=== PATIENT | male | born 1965 | race Caucasian/White ===

== ENCOUNTER 2021-01-16 10:19 | Inpatient (IN) | payer MEDICAID, SELFPAY ==
--- NOTE | ~2021-01-16 | CT_ITS ---
EXAMINATION: CT ABDOMEN AND PELVIS WITH CONTRAST CLINICAL INFORMATION: Abdominal pain and weight loss COMPARISON: Ultrasound of September 09, 2011 TECHNIQUE: Multidetector volumetric images were obtained from the superior aspect of the liver through the pubic symphysis following administration 85 mL of Omnipaque 350 intravenous contrast. Sagittal and coronal reformatted images were obtained on the technologist's workstation. Oral contrast: No This CT examination was performed using dose optimization techniques as appropriate, variously including the following: *Automated exposure control *Adjustment of mA and/or kV according to patient size (this includes techniques or standardized protocols for targeted exams where dose is matched to indication/reason for exam; i.e. extremities or head) *Use of iterative reconstruction technique DLP: 911 mGy-cm FINDINGS: LUNG BASES: The visualized lung bases are unremarkable. No pleural or pericardial effusion. LIVER, GALLBLADDER, AND BILIARY TREE: The liver is normal in size, shape, and attenuation. No focal hepatic lesion or biliary ductal dilatation is present. Cholelithiasis is present without evidence of acute cholecystitis. PANCREAS: Unremarkable. SPLEEN: Unremarkable. ADRENAL GLANDS: Unremarkable. KIDNEYS AND URETERS: The kidneys are normal in size, shape, and attenuation. No hydronephrosis, hydroureter, or calculi seen. No perinephric stranding. BLADDER: Decompressed GASTROINTESTINAL TRACT: No dilated loops of large or small bowel are evident. There is mild left: Diverticulosis. There is bowel wall thickening with large amount of pericolonic inflammatory change manager a long segment of sigmoid colon with small amount of fluid within the cul-de-sac without air within it. There is an intraloop heterogeneous region/collection which may represent phlegmon about the left side of the sigmoid colon measuring approximately 4.7 x 2.9 x 2.4 cm in size which does not have nondependent gas within it and therefore is not fluid. ABDOMINAL WALL: No significant hernia is appreciated. LYMPH NODES: There is left upper pelvic lymphadenopathy present. VASCULAR: There is a small 2.6 cm infrarenal abdominal aortic aneurysm. This does not extend into the bifurcation. No visceral artery occlusion is appreciated. PELVIC VISCERA: As described above in GI section. OSSEOUS STRUCTURES: No suspicious destructive bony lesion identified. There is partial sacralization of L5 on the right. There is a grade 1 spondylolisthesis L3 on L4. CT/CT abdomen pelvis w con IMPRESSION: Sigmoid colitis with small amount of free fluid within the cul-de-sac and what appears to be a phlegmon adjacent to the left sigmoid colon. No definite visceral vessel obstruction to suggest occlusive mesenteric ischemia. Cholelithiasis without evidence of acute cholecystitis.
[2021-01-16 11:35] LABS: MANUAL DIFF FLAG NO
[2021-01-16 11:37] LABS: Basophils Percent Auto 0.4 % (0-2); Eosinophils Absolute Auto 0.1 X10*3/uL (0.0-0.4); Eosinophils Percent Auto 1.4 % (0-4); Hematocrit 39.4 % (42-52); Hemoglobin 13.1 g/dl (14.0-18.0); Imm Gran Abs Auto 0.05 X10*3/uL (0.00-0.03); Imm Gran Pct Auto 0.6 % (0.0-0.4); Lymphocytes Absolute Auto 1.7 X10*3/uL (1.2-4.9); Lymphocytes Percent Auto 21.7 % (20-40); Mean Corpuscular HGB Conc 33.2 g/dl (31.0-36.0); Mean Corpuscular Hemoglobin 28.7 pg (27.0-33.0); Mean Corpuscular Volume 86.4 fL (80-98); Mean Platelet Volume 8.6 fL (9.4-12.4); Monocytes Absolute Auto 0.9 X10*3/uL (0.1-1.2); Monocytes Percent Auto 11.5 % (2-11); Neutrophils Percent Auto 64.4 % (45-73); Platelet Count 294 X10*3/uL (160-400); Red Blood Count 4.56 X10*6/uL (4.60-5.80); Red Cell Distribution Width 13.6 % (11.0-16.0); White Blood Count 7.8 X10*3/uL (4.8-10.8)
[2021-01-16 11:42] VITALS: BP 114/72; PULSE 56; RESP 17; TEMP 36.8; O2SAT 97; BMI 36.5
[2021-01-16 12:25] LABS: Alanine Aminotransferase 28 U/L (0-40); Albumin Level 3.9 g/dL (3.5-5.0); Alkaline Phosphatase 89 U/L (39-117); Anion Gap 15 (12-20); Aspartate Amino Transferase 20 U/L (5-37); Bilirubin Total 1.4 mg/dL (0.0-1.0); Blood Urea Nitrogen 20 mg/dL (9-16); Calcium 9.9 mg/dL (8.4-10.2); Carbon Dioxide 30 mmol/L (22-29); Chloride 97 mmol/L (96-108); Creatinine Clr Calc Pharmacy 72.1; Estimated Glomerular Filt Rate 53; Glucose Random 98 mg/dL (60-115); Potassium 3.1 mmol/L (3.3-5.1); Sodium 139 mmol/L (135-145); Total Protein 7.4 g/dL (6.5-8.0)
--- NOTE | 2021-01-16 13:09 | ED.ABDPAIN ---
HPI - Abdominal Pain General Chief Complaint: Abdominal Pain Stated Complaint: abd pain Time Seen by Provider: 01/16/21 13:09 Related Data Allergies Allergy/AdvReac Type Severity Reaction Status Date / Time No Known Allergies Allergy Unknown UN Verified 01/16/21 11:41 Review of Systems Review of Systems Constitutional : No Weight loss, No Fever, No Chills, No Night Sweats, No Fatigue, No Malaise ENT/Mouth : No Hearing loss, No Ear Pain, No Nasal Congestion, No Sinus Pain, No Hoarseness, No sore throat, No Rhinorrhea, No Swallowing Difficulty Eyes: No Eye Pain, No Swelling, No Redness, No Foreign Body, No Discharge, No Vision Changes Cardiovascular : No Chest Pain, No SOB, No Dyspnea on Exertion, No Orthopnea, No Edema, No Palpitations Respiratory : No Cough, No Sputum, No Wheezing, No Smoke Exposure, No Dyspnea Gastrointestinal : Nausea, Vomiting, No Diarrhea, No Constipation, No abdominal Pain, No Hematochezia, No Melena Genitourinary : no irregular bleeding, No Dysuria, No Urinary Frequency, No Hematuria, No Urinary Incontinence, No Urgency, No Flank Pain, No Urinary Flow Changes, No Hesitancy Musculoskeletal : No joint pain, No Myalgias, No Joint Swelling Skin : No Skin Lesions, No rash Neuro : Weakness, No Numbness, No Paresthesias, No Loss of Consciousness, No Dizziness, No Headache Psych : No Anxiety/Panic, No Depression, No SI/HI/AH/VH, No Social Issues, Heme/Lymph: No Bruising, No Bleeding,No Lymphadenopathy Endocrine : No Polyuria, No Polydipsia, No Temperature Intolerance Yes all other systems are reviewed and are negative Physical Exam Vital Signs: Vital Signs: Last Vital Signs Temp 98.3 F 01/16/21 11:42 Pulse 60 01/16/21 16:08 Resp 17 01/16/21 11:42 BP 120/80 01/16/21 16:08 Pulse Ox 97 01/16/21 16:08 Body Mass Index 36.5 Const: General: healthy appearing, no acute distress and well developed Nutritional Appearance: well nourished Orientation/consciousness: patient oriented x3 Neck: Neck: Yes normal visual inspection, Yes full ROM and Yes trachea midline Thyroid: Thyroid normal Resp: Auscultation: clear to auscultation bilaterally Cardio: Rate: regular rate Rhythm: regular rhythm GI: Inspection: Yes normal to inspection and No distended Palpation (GI): No hepatosplenomegaly present Auscultation: normal bowel sounds : General: Yes bladder normal to palpation Skin: General skin exam: elasticity normal, turgor normal and dry skin Neuro: General: patient oriented x3 Course Course Course Narrative: 55-year-old male is here today for complaining of abdominal discomfort. Patient reports his abdominal pain is diffuse. Patient reports that he lost 50 lb in the last month. He also reports that he has postprandial fullness, bloating, belching. He reports that he moves his bowels however he only goes small amounts pebble like stools. Denies melena, hematochezia, or ribbon like stools. Denies epigastric pain, CP, nausea, vomiting. Will give him Mag citrate and replace the potassium. CT scan with IV contrast, will add lipase. Differential is colitis, diverticulitis, malignancy. Patient reports that he also feels very tired. Reevaluation(s) Reevaluation #1: Potassium repeat after IV infusion 2.8. Will replace with p.o. potassium as well as IV. Awaiting for CT scan of abdomen. Patient is moving his bowels better. Patient reports that his pain is better at this moment. Reevaluation #2: CT scan shows colitis, There is an intraloop heterogeneous region/collection which may represent phlegmon about the left side of the sigmoid colon measuring approximately 4.7 x 2.9 x 2.4 cm in size which does not have nondependent gas within it and therefore is not fluid. Call surgery spoke with Dr. Rowell, no abscess will admit to hospitalist services. Will treat patient with Flagyl and Levaquin. Will repeat potassium. Patient is agreeable to plan of care for admission. Reevaluation #3: Spoke with hospitalist, patient will be admitted MDM - Abdominal Pain Lab Data Result diagrams: 01/16/21 11:22 01/16/21 19:17 Labs: Lab Results 01/16/21 01/16/21 01/16/21 Range/Units 11:22 11:22 13:23 WBC 7.8 (4.8-10.8) X10*3/uL RBC 4.56 L (4.60-5.80) X10*6/uL Hgb 13.1 L (14.0-18.0) g/dl Hct 39.4 L (42-52) % MCV 86.4 (80-98) fL MCH 28.7 (27.0-33.0) pg MCHC 33.2 (31.0-36.0) g/dl RDW 13.6 (11.0-16.0) % Plt Count 294 (160-400) X10*3/uL MPV 8.6 L (9.4-12.4) fL Immature Gran % (Auto) 0.6 H (0.0-0.4) % Neut % (Auto) 64.4 (45-73) % Lymph % (Auto) 21.7 (20-40) % [place] % (Auto) 11.5 H (2-11) % Eos % (Auto) 1.4 (0-4) % Baso % (Auto) 0.4 (0-2) % Lymph # (Auto) 1.7 (1.2-4.9) X10*3/uL [place] # (Auto) 0.9 (0.1-1.2) X10*3/uL Eos # (Auto) 0.1 (0.0-0.4) X10*3/uL Baso # (Auto) 0.0 (0.0-0.2) X10*3/uL Abs Immat Gran (auto) 0.05 H (0.00-0.03) X10*3/uL Absolute Neuts (auto) 5.0 (2.0-8.3) X10*3/uL Absolute Nucleated RBC 0.000 (0.0-0.012) X10*3/uL Nucleated RBC % (auto) 0.0 (0.0-0.2) /100WBC Sodium 139 (135-145) mmol/L Potassium 3.1 L (3.3-5.1) mmol/L Chloride 97 (96-108) mmol/L Carbon Dioxide 30 H (22-29) mmol/L Anion Gap 15 (12-20) BUN 20 H (9-16) mg/dL Creatinine 1.40 (0.5-1.4) mg/dL Estim Creat Clear Calc 72.1 Estimated GFR 53 Random Glucose 98 (60-115) mg/dL Calcium 9.9 (8.4-10.2) mg/dL Magnesium 1.9 (1.6-2.6) mg/dL Total Bilirubin 1.4 H (0.0-1.0) mg/dL AST 20 (5-37) U/L ALT 28 (0-40) U/L Alkaline Phosphatase 89 (39-117) U/L Total Protein 7.4 (6.5-8.0) g/dL Albumin 3.9 (3.5-5.0) g/dL Lipase 8 (8-78) U/L Urine Color YELLOW Urine Appearance CLOUDY Urine pH 6.0 (5.0-8.0) Ur Specific [place] >= 1.030 H (1.005-1.025) Urine Protein 2+ H (NEG-TRACE) MG/DL Urine Glucose (UA) NEG (NEG) MG/DL Urine Ketones NEG (NEG) MG/DL Urine Blood 1+ H (NEG) Urine Nitrite NEG (NEG) Ur Leukocyte Esterase NEG (NEG) Urine RBC 1-4 (0) /HPF Urine WBC 5-9 H (0-4) /HPF Ur Squamous Epith Cells NONE /LPF Urine Bacteria NONE /LPF Urine Mucus TRACE /LPF 01/16/21 Range/Units 14:24 WBC (4.8-10.8) X10*3/uL RBC (4.60-5.80) X10*6/uL Hgb (14.0-18.0) g/dl Hct (42-52) % MCV (80-98) fL MCH (27.0-33.0) pg MCHC (31.0-36.0) g/dl RDW (11.0-16.0) % Plt Count (160-400) X10*3/uL MPV (9.4-12.4) fL Immature Gran % (Auto) (0.0-0.4) % Neut % (Auto) (45-73) % Lymph % (Auto) (20-40) % [place] % (Auto) (2-11) % Eos % (Auto) (0-4) % Baso % (Auto) (0-2) % Lymph # (Auto) (1.2-4.9) X10*3/uL [place] # (Auto) (0.1-1.2) X10*3/uL Eos # (Auto) (0.0-0.4) X10*3/uL Baso # (Auto) (0.0-0.2) X10*3/uL Abs Immat Gran (auto) (0.00-0.03) X10*3/uL Absolute Neuts (auto) (2.0-8.3) X10*3/uL Absolute Nucleated RBC (0.0-0.012) X10*3/uL Nucleated RBC % (auto) (0.0-0.2) /100WBC Sodium (135-145) mmol/L Potassium 2.8 L (3.3-5.1) mmol/L Chloride (96-108) mmol/L Carbon Dioxide (22-29) mmol/L Anion Gap (12-20) BUN (9-16) mg/dL Creatinine (0.5-1.4) mg/dL Estim Creat Clear Calc Estimated GFR Random Glucose (60-115) mg/dL Calcium (8.4-10.2) mg/dL Magnesium (1.6-2.6) mg/dL Total Bilirubin (0.0-1.0) mg/dL AST (5-37) U/L ALT (0-40) U/L Alkaline Phosphatase (39-117) U/L Total Protein (6.5-8.0) g/dL Albumin (3.5-5.0) g/dL Lipase (8-78) U/L Urine Color Urine Appearance Urine pH (5.0-8.0) Ur Specific [place] (1.005-1.025) Urine Protein (NEG-TRACE) MG/DL Urine Glucose (UA) (NEG) MG/DL Urine Ketones (NEG) MG/DL Urine Blood (NEG) Urine Nitrite (NEG) Ur Leukocyte Esterase (NEG) Urine RBC (0) /HPF Urine WBC (0-4) /HPF Ur Squamous Epith Cells /LPF Urine Bacteria /LPF Urine Mucus /LPF Imaging Data CT scan - abdomen: Radiologist's impression: FINDINGS: LUNG BASES: The visualized lung bases are unremarkable. No pleural or pericardial effusion. LIVER, GALLBLADDER, AND BILIARY TREE: The liver is normal in size, shape, and attenuation. No focal hepatic lesion or biliary ductal dilatation is present. Cholelithiasis is present without evidence of acute cholecystitis. PANCREAS: Unremarkable. SPLEEN: Unremarkable. ADRENAL GLANDS: Unremarkable. KIDNEYS AND URETERS: The kidneys are normal in size, shape, and attenuation. No hydronephrosis, hydroureter, or calculi seen. No perinephric stranding. BLADDER: Decompressed GASTROINTESTINAL TRACT: No dilated loops of large or small bowel are evident. There is mild left: Diverticulosis. There is bowel wall thickening with large amount of pericolonic inflammatory foreign exchange services manager a long segment of sigmoid colon with small amount of fluid within the cul-de-sac without air within it. There is an intraloop heterogeneous region/collection which may represent phlegmon about the left side of the sigmoid colon measuring approximately 4.7 x 2.9 x 2.4 cm in size which does not have nondependent gas within it and therefore is not fluid. ABDOMINAL WALL: No significant hernia is appreciated. LYMPH NODES: There is left upper pelvic lymphadenopathy present. VASCULAR: There is a small 2.6 cm infrarenal abdominal aortic aneurysm. This does not extend into the bifurcation. No visceral artery occlusion is appreciated. PELVIC VISCERA: As described above in GI section. OSSEOUS STRUCTURES: No suspicious destructive bony lesion identified. There is partial sacralization of L5 on the right. There is a grade 1 spondylolisthesis L3 on L4. Discharge Plan Discharge Clinical Impression: Colitis, Hypokalemia Constipation Qualifiers: Constipation type: chronic idiopathic constipation Qualified Code(s): K59.04 - Chronic idiopathic constipation Patient Disposition: Admitted As Inpatient [facility] Past Medical History Medical History (Updated 01/16/21 @ 19:28 by GULHSAN Sumner) Depression Hypertension Social History Social History (Updated 01/16/21 @ 18:42 by Moose Somers MD) Alcohol intake: never Patient Tobacco Use Status: Current everyday Tobacco user Use of substances other than those prescribed or required for medical reasons: No Advance Directives: No Advance Directives Information Provided: Yes Current occupation: Works in [employer] department at [employer]
[2021-01-16 13:41] LABS: Glucose Urine UA NEG (NEG); Leukocyte Esterase Urine NEG (NEG); Nitrite Urine NEG (NEG); Specific Gravity - Urine >= 1.030 (1.005-1.025); Urine Blood 1+ (NEG); Urine Ketones NEG (NEG); Urine Protein 2+ MG/DL (NEG-TRACE)
[2021-01-16 13:43] LABS: Appearance Urine CLOUDY; Color Urine YELLOW
[2021-01-16 13:52] LABS: UACC CULT YES
[2021-01-16 13:53] LABS: Mucus Urine TRACE /LPF
[2021-01-16 14:06] LABS: Lipase 8 U/L (8-78)
[2021-01-16] MEDS: iohexoL 350 MG/ML 100 ML INFUS..BTL IV (14:08)
[2021-01-16] MEDS: Potassium Chloride ER 20 MEQ TAB.ER.PRT PO (14:11)
[2021-01-16] MEDS: 0.9 % Sodium Chloride 1,000 ML 999 ML IV (14:12)
[2021-01-16] MEDS: Magnesium Citrate 300 ML SOLUTION PO (14:12)
[2021-01-16 14:59] LABS: Potassium 2.8 mmol/L (3.3-5.1)
[2021-01-16 16:08] VITALS: BP 120/80; PULSE 60; O2SAT 97
[2021-01-16] MEDS: Potassium Chloride/H20 10 MEQ/100 ML PIGGYBACK 100 MEQ IV (16:18)
[2021-01-16] MEDS: Potassium Chloride ER 20 MEQ TAB.ER.PRT 40 MEQ PO (16:18)
[2021-01-16 16:26] LABS: Magnesium 1.9 mg/dL (1.6-2.6)
--- NOTE | 2021-01-16 16:59 | PC.NURSE ---
pt with family at bedside. pt and family made aware of Colitis and plan to admit pt to hospital. pt currently resting quietly. has Potassium 10 mEq running
[2021-01-16] MEDS: levoFLOXacin/D5W 500 MG/100 ML PIGGYBACK 100 MG IV (18:07)
--- NOTE | 2021-01-16 18:21 | PM.IMHP ---
History of Present Illness Date of Service: 01/16/21 Chief Complaint: Abdominal pain 55 year old male with HTN, takes Metoprolol, Norvasc and HCTZ, depression on Welbutrin and Trazadone. He presents with abdominal pain of right lower quadrant area for about 2 months now. Pain starts about 2 hours after after he eats and is associated bloating, belching and fullness. He has been moving his bowel but in small amoutn. He reports that 9 months ago, he had streak of blood in stool but has stopped. He has screening colonoscopy coming on Feb 05. He reports unintention 50 ib weight loss within a month. He has no nausea, vomitting or diarrhea, but feels lack of energy. He smokes less a pack a day. CT shows sigmoid diverticulitis (see detail below) Review of Systems Review of Systems: Gen: no fever, weight loss Resp: no sob, no cough CV: no chest, no HERNANDEZ, no leg edema GI: No n/v, + abd pain, constipation Neuro: No confusion Yes all other systems are reviewed and are negative [facility] Medical History (Updated 01/16/21 @ 18:25 by Moose Somers MD) Depression Hypertension Pertinent family history: Mother with diabetes, no early CAD Social History (Updated 01/16/21 @ 18:42 by Moose Somers MD) Alcohol intake: never Patient Tobacco Use Status: Current everyday Tobacco user Use of substances other than those prescribed or required for medical reasons: No Advance Directives: No Advance Directives Information Provided: Yes Current occupation: Works in [employer] department at [employer] Meds Allergies Allergy/AdvReac Type Severity Reaction Status Date / Time No Known Allergies Allergy Unknown UN Verified 01/16/21 11:41 Active Medications: Current Medications Generic Name Dose Route Start Last Admin Trade Name Freq PRN Reason Stop Dose Admin Acetaminophen 650 mg 01/16/21 18:14 Acetaminophen 325 Mg Tablet PO Q6H PRN Pain, Mild (Pain Scale 1-3) Enoxaparin Sodium 40 mg 01/16/21 18:15 Enoxaparin Sodium 40 Mg/0.4 Ml Syringe SUBCUT Q24H TORREY Levofloxacin 500 mg in 100 mls @ 100 mls/hr 01/16/21 17:38 01/16/21 18:07 Levaquin IV 01/16/21 18:37 100 mls/hr ONCE ONE Administration Metronidazole 500 mg in 100 mls @ 100 mls/hr 01/16/21 17:38 Flagyl IV 01/16/21 18:37 ONCE ONE Dextrose/Sodium Chloride 1,000 mls @ 100 mls/hr 01/16/21 18:15 D51/2ns IVCONT .Q10H TORREY Metronidazole 500 mg in 100 mls @ 100 mls/hr 01/17/21 03:00 Flagyl IV Q8H TORREY Levofloxacin 500 mg in 100 mls @ 100 mls/hr 01/17/21 18:00 Levaquin IV Q24H TORREY Melatonin 6 mg 01/16/21 18:14 Melatonin 3 Mg Tablet PO BEDTIME PRN Insomnia Morphine Sulfate 2 mg 01/16/21 18:14 Morphine Sulfate 2 Mg/Ml Cartridge IVPUSH Q4H PRN Pain, Severe (Pain Scale 7-10) Sodium Chloride 3 ml 01/17/21 00:00 0.9 % Sodium Chloride Flush 3 Ml Syringe IVFLUSH QSHIFT [facility] Physical Exam Vital Signs and Narrative: Vital Signs: Last Vital Signs Temp 98.3 F 01/16/21 11:42 Pulse 60 01/16/21 16:08 Resp 17 01/16/21 11:42 BP 120/80 01/16/21 16:08 Pulse Ox 97 01/16/21 16:08 Body Mass Index 36.5 Const: Other: Constitutional Awake and Alert, No apparent distress Neck Supple, No lymphadenopathy Cardiovascular RRR, No M/R/G, S1 S2, No S3 S4, No pedal edema Respiratory Lungs clear, No respiratory distress Gastrointestinal Non tender, tenderness in right side, voluntary guarding Skin No rash Neurological Alert & oriented x3 Psychological Appropriate affect Results Labs CBC and Chem 7: 01/16/21 11:22 01/16/21 14:24 Labs: Laboratory Results - last 24 hr 01/16/21 01/16/21 01/16/21 11:22 11:22 13:23 MCV 86.4 MCH 28.7 MCHC 33.2 RDW 13.6 Plt Count 294 MPV 8.6 L Immature Gran % (Auto) 0.6 H Neut % (Auto) 64.4 Lymph % (Auto) 21.7 [place] % (Auto) 11.5 H Eos % (Auto) 1.4 Baso % (Auto) 0.4 Lymph # (Auto) 1.7 [place] # (Auto) 0.9 Eos # (Auto) 0.1 Baso # (Auto) 0.0 Abs Immat Gran (auto) 0.05 H Absolute Neuts (auto) 5.0 Absolute Nucleated RBC 0.000 Nucleated RBC % (auto) 0.0 Anion Gap 15 Estim Creat Clear Calc 72.1 Estimated GFR 53 Random Glucose 98 Calcium 9.9 Magnesium 1.9 Total Bilirubin 1.4 H AST 20 ALT 28 Alkaline Phosphatase 89 Total Protein 7.4 Albumin 3.9 Lipase 8 Urine Color YELLOW Urine Appearance CLOUDY Urine pH 6.0 Ur Specific [place] >= 1.030 H Urine Protein 2+ H Urine Glucose (UA) NEG Urine Ketones NEG Urine Blood 1+ H Urine Nitrite NEG Ur Leukocyte Esterase NEG Urine RBC 1-4 Urine WBC 5-9 H Ur Squamous Epith Cells NONE Urine Bacteria NONE Urine Mucus TRACE Imaging Radiologist's Impressions: Impressions Abdomen/Pelvis CT 01/16/21 13:18 IMPRESSION: Sigmoid colitis with small amount of free fluid within the cul-de-sac and what appears to be a phlegmon adjacent to the left sigmoid colon. No definite visceral vessel obstruction to suggest occlusive mesenteric ischemia. Cholelithiasis without evidence of acute cholecystitis. Assessment and Plan (1) Colitis: Status: Acute (2) Hypokalemia: Status: Acute (3) Depression: Status: Acute (4) Hypertension: Status: Acute 55 year male with HTN, Depression, no prior colonoscopy here with abdominal pain and found to have colitis with adjacent phlegmon, given ongoing. There is no increase in imflamatory makers and marked weight loss raises concern of possible maligancy. -For now will treat with Abx (Levaquin and Flagyl ) for colitis -GI consult -NPO -IVF -IV Morphine for pain HTN--continue meds once med rec is done Depression--continue meds after med rec Lovenox for DVT prophy NRT--smoking cessartion discussed Full code Quality Stroke Does the patient have a stroke diagnosis?: No VTE Prior VTE?: No VTE Risk Level:: Medical - moderate - high VTE Device Contraindication: N/A - Device Ordered VTE Drug Contraindication: N/A - Med Ordered
[2021-01-16] MEDS: metroNIDAZOLE/NS 500 MG/100 ML PIGGYBACK 100 MG IV (19:17)
[2021-01-16 19:50] LABS: Potassium 3.1 mmol/L (3.3-5.1)
[2021-01-16] MEDS: Dextrose 5 % and 0.45 % NaCl 1,000 ML 100 ML IVCONT (20:46)
[2021-01-17] VITALS (7 sets, daily range): BP systolic 115–137; BP diastolic 71–77; PULSE 57–67; RESP 16–24; TEMP 36.1–36.2; O2SAT 95–98; BMI 36.5
[2021-01-17] MEDS: 0.9 % Sodium Chloride Flush 3 ML SYRINGE IVFLUSH (01:21)
[2021-01-17] MEDS: metroNIDAZOLE/NS 500 MG/100 ML PIGGYBACK 100 MG IV ×3 (03:03→18:31)
[2021-01-17] MEDS: Dextrose 5 % and 0.45 % NaCl 1,000 ML 100 ML IVCONT ×2 (07:38→18:31)
[2021-01-17 08:47] LABS: MANUAL DIFF FLAG NO
[2021-01-17 08:54] LABS: Basophils Percent Auto 0.3 % (0-2); Eosinophils Absolute Auto 0.1 X10*3/uL (0.0-0.4); Eosinophils Percent Auto 1.8 % (0-4); Hematocrit 36.9 % (42-52); Hemoglobin 12.2 g/dl (14.0-18.0); Imm Gran Abs Auto 0.05 X10*3/uL (0.00-0.03); Imm Gran Pct Auto 0.7 % (0.0-0.4); Lymphocytes Absolute Auto 1.5 X10*3/uL (1.2-4.9); Lymphocytes Percent Auto 21.9 % (20-40); Mean Corpuscular HGB Conc 33.1 g/dl (31.0-36.0); Mean Corpuscular Hemoglobin 28.7 pg (27.0-33.0); Mean Corpuscular Volume 86.8 fL (80-98); Mean Platelet Volume 8.6 fL (9.4-12.4); Monocytes Absolute Auto 0.8 X10*3/uL (0.1-1.2); Neutrophils Absolute Auto 4.4 X10*3/uL (2.0-8.3); Neutrophils Percent Auto 64.3 % (45-73); Platelet Count 259 X10*3/uL (160-400); Red Blood Count 4.25 X10*6/uL (4.60-5.80); Red Cell Distribution Width 13.6 % (11.0-16.0); White Blood Count 6.8 X10*3/uL (4.8-10.8)
--- NOTE | 2021-01-17 09:26 | MHC.CM.PN ---
PATIENT IS INDEPENDENT WITH ALL ADLS. NO DME OR VNA SERVICES IN THE HOME. HE ASKS TO ASSIGN A HCP AGENT, NAMING HIS , MELITA. HCP COMPLETED AND FAXED INTO [facility] PATIENT HAS ORIGINAL AND ONE COPY. PCP AND INSURANCE VERIFIED.
--- NOTE | 2021-01-17 10:28 | P.PNIM_ITS ---
Subjective Subjective Date of Service: 01/17/21 Interval History: Seen in f/u for colitis, has no more pain, no BM Review of Systems Gen: no fever, weight loss Resp: no sob, no cough CV: no chest, no HERNANDEZ, no leg edema GI: No n/v,no abd pain, constipation Neuro: No confusion Physical Exam Vital Signs: Vital Signs: Last Vital Signs Temp 96.9 F 01/17/21 08:00 Pulse 60 01/17/21 08:00 Resp 18 01/17/21 08:00 BP 120/77 01/17/21 08:00 Pulse Ox 98 01/17/21 08:00 Body Mass Index 36.5 Const: Other: Constitutional Awake and Alert, No apparent distress Neck Supple, No lymphadenopathy Cardiovascular RRR, No M/R/G, S1 S2, No S3 S4, No pedal edema Respiratory Lungs clear, No respiratory distress Gastrointestinal Non tender, tenderness in right side, voluntary guarding Skin No rash Neurological Alert & oriented x3 Psychological Appropriate affect Objective Data Current Medications Generic Name Dose Route Start Last Admin Trade Name Miahq PRN Reason Stop Dose Admin Acetaminophen 650 mg 01/16/21 18:14 Acetaminophen 325 Mg Tablet PO Q6H PRN Pain, Mild (Pain Scale 1-3) Enoxaparin Sodium 40 mg 01/16/21 18:15 01/16/21 20:12 Enoxaparin Sodium 40 Mg/0.4 Ml Syringe SUBCUT Not Given Q24H TORREY Metronidazole 500 mg in 100 mls @ 100 mls/hr 01/17/21 03:00 01/17/21 04:03 Flagyl IV Infused Q8H TORREY Infusion Levofloxacin 500 mg in 100 mls @ 100 mls/hr 01/17/21 18:00 Levaquin IV Q24H TORREY Dextrose/Sodium Chloride 1,000 mls @ 100 mls/hr 01/17/21 08:00 01/17/21 07:38 D51/2ns IVCONT 100 mls/hr .Q10H TORREY Administration Melatonin 6 mg 01/16/21 18:14 Melatonin 3 Mg Tablet PO BEDTIME PRN Insomnia Morphine Sulfate 2 mg 01/16/21 18:14 Morphine Sulfate 2 Mg/Ml Cartridge IVPUSH Q4H PRN Pain, Severe (Pain Scale 7-10) Sodium Chloride 3 ml 01/17/21 00:00 01/17/21 07:40 0.9 % Sodium Chloride Flush 3 Ml Syringe IVFLUSH Not Given QSHIFT [facility] Labs CBC & Chem 7: 01/17/21 08:27 01/16/21 19:17 Labs: Laboratory Results - last 24 hr 01/16/21 01/16/21 01/16/21 11:22 11:22 13:23 WBC 7.8 RBC 4.56 L Hgb 13.1 L Hct 39.4 L MCV 86.4 MCH 28.7 MCHC 33.2 RDW 13.6 Plt Count 294 MPV 8.6 L Immature Gran % (Auto) 0.6 H Neut % (Auto) 64.4 Lymph % (Auto) 21.7 [place] % (Auto) 11.5 H Eos % (Auto) 1.4 Baso % (Auto) 0.4 Lymph # (Auto) 1.7 [place] # (Auto) 0.9 Eos # (Auto) 0.1 Baso # (Auto) 0.0 Abs Immat Gran (auto) 0.05 H Absolute Neuts (auto) 5.0 Absolute Nucleated RBC 0.000 Nucleated RBC % (auto) 0.0 Sodium 139 Potassium 3.1 L Chloride 97 Carbon Dioxide 30 H Anion Gap 15 BUN 20 H Creatinine 1.40 Estim Creat Clear Calc 72.1 Estimated GFR 53 Random Glucose 98 Calcium 9.9 Magnesium 1.9 Total Bilirubin 1.4 H AST 20 ALT 28 Alkaline Phosphatase 89 Total Protein 7.4 Albumin 3.9 Lipase 8 Urine Color YELLOW Urine Appearance CLOUDY Urine pH 6.0 Ur Specific [place] >= 1.030 H Urine Protein 2+ H Urine Glucose (UA) NEG Urine Ketones NEG Urine Blood 1+ H Urine Nitrite NEG Ur Leukocyte Esterase NEG Urine RBC 1-4 Urine WBC 5-9 H Ur Squamous Epith Cells NONE Urine Bacteria NONE Urine Mucus TRACE 01/16/21 01/16/21 01/17/21 14:24 19:17 08:27 WBC 6.8 RBC 4.25 L Hgb 12.2 L Hct 36.9 L MCV 86.8 MCH 28.7 MCHC 33.1 RDW 13.6 Plt Count 259 MPV 8.6 L Immature Gran % (Auto) 0.7 H Neut % (Auto) 64.3 Lymph % (Auto) 21.9 [place] % (Auto) 11.0 Eos % (Auto) 1.8 Baso % (Auto) 0.3 Lymph # (Auto) 1.5 [place] # (Auto) 0.8 Eos # (Auto) 0.1 Baso # (Auto) 0.0 Abs Immat Gran (auto) 0.05 H Absolute Neuts (auto) 4.4 Absolute Nucleated RBC 0.000 Nucleated RBC % (auto) 0.0 Sodium Potassium 2.8 L 3.1 L Chloride Carbon Dioxide Anion Gap BUN Creatinine Estim Creat Clear Calc Estimated GFR Random Glucose Calcium Magnesium Total Bilirubin AST ALT Alkaline Phosphatase Total Protein Albumin Lipase Urine Color Urine Appearance Urine pH Ur Specific [place] Urine Protein Urine Glucose (UA) Urine Ketones Urine Blood Urine Nitrite Ur Leukocyte Esterase Urine RBC Urine WBC Ur Squamous Epith Cells Urine Bacteria Urine Mucus Imaging CT scan - abdomen: Radiologist's impression: Impressions Abdomen/Pelvis CT 01/16/21 13:18 IMPRESSION: Sigmoid colitis with small amount of free fluid within the cul-de-sac and what appears to be a phlegmon adjacent to the left sigmoid colon. No definite visceral vessel obstruction to suggest occlusive mesenteric ischemia. Cholelithiasis without evidence of acute cholecystitis. Microbiology Microbiology Results: Microbiology 01/16/21 14:24 Urine Culture - Final Urine clean catch - Urine boone top No growth. Quality Stroke Does the patient have a stroke diagnosis?: No VTE Prior VTE?: No VTE Risk Level:: Medical - moderate - high VTE Device Contraindication: N/A - Device Ordered VTE Drug Contraindication: N/A - Med Ordered Assessment and Plan (1) Colitis: Status: Acute (2) Hypokalemia: Status: Acute (3) Depression: Status: Acute (4) Hypertension: Status: Acute Assessment and Plan: 55 year male with HTN, Depression, no prior colonoscopy here with abdominal pain and found to have colitis with adjacent phlegmon, given ongoing. There is no increase in imflamatory makers and marked weight loss raises concern of possible maligancy. colitis that is cliically improving -continue Abx (Levaquin and Flagyl ) D2 -GI consult -Start liquid diet -IVF -IV Morphine for pain HTN--continue meds once med rec is done, presently BP is good Depression--continue meds after med rec Lovenox for DVT prophy NRT--smoking cessartion discussed Full code
--- NOTE | 2021-01-17 11:15 | PHA.MEDREC ---
Pharmacy Consult ? Medication Reconciliation Pharmacy has completed the medication reconciliation.
--- NOTE | 2021-01-17 12:16 | MHC.CM.PN ---
PATIENT SYMPTOMS IMPROVING. PATIENT IS LIKELY ABLE TO RETURN HOME THIS WEEKEND WITH NO NEED FOR SERVICES. (NEW HCP) TO TRANSPORT.
--- NOTE | 2021-01-17 12:55 | P.CNGI_ITS ---
History of Present Illness Data of Consult Service Date: 01/17/21 Requesting physician: Moose Somers Primary Care Provider: Bogdan Ha MD [facility] Reason for consult: Abd pain, diverticulitis 55 YM seen at [facility] [place] [facility] yesterday with abdominal pain: Course Narrative: 55-year-old male is here today for complaining of abdominal discomfort. Patient reports his abdominal pain is diffuse. Patient reports that he lost 50 lb in the last month. He also reports that he has postprandial fullness, bloating, belching. He reports that he moves his bowels however he only goes small amounts pebble like stools. Denies melena, hematochezia, or ribbon like stools. Denies epigastric pain, CP, nausea, vomiting. Will give him Mag citrate and replace the potassium. CT scan with IV contrast, will add lipase. Differential is colitis, diverticulitis, malignancy. Patient reports that he also feels very tired. Reevaluation #1: Potassium repeat after IV infusion 2.8. Will replace with p.o. potassium as well as IV. Awaiting for CT scan of abdomen. Patient is moving his bowels better. Patient reports that his pain is better at this moment. Reevaluation #2: CT scan shows colitis, There is an intraloop heterogeneous region/collection which may represent phlegmon about the left side of the sigmoid colon measuring approximately 4.7 x 2.9 x 2.4 cm in size which does not have nondependent gas within it and therefore is not fluid. Call surgery spoke with Dr. Rowell, no abscess will admit to hospitalist services. Will treat patient with Flagyl and Levaquin. Will repeat potassium. Patient is agreeable to plan of care for admission. Reevaluation #3: Spoke with hospitalist, patient will be admitted Patient complains of LLQ pain for the past 2 months with night sweats and wt los s of 68 lbs. notes post prandial fullness followed by vomiting every 3-4 days. he has noted a change in bowel habits with flattened stools. He denies symptoms of heartburn, dysphagia, diarrhea, black stools or rectal bleeding. Patient denies major cardiac or pulmonary problems, loud snoring or sleep apnea Denies problems with anesthesia in the past. Denies being on chronic anticoagulation. Patient is and lives at home with his and has 3 children. 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 Patient denies known family history of colon polyps. Dad with advanced cancer in his 60's - pt does not the primary site of cancer. His Mom had cirrhosis ENDOSCOPIC STUDIES: Patient denies having an upper endoscopy or colonoscopy in the past. He is being referred for his 1st colonoscopy by his PCP IMAGING STUDIES: 01/16/[address] SCAN SHOWED GASTROINTESTINAL TRACT: No dilated loops of large or small bowel are evident. There is mild left: Diverticulosis. There is bowel wall thickening with large amount of pericolonic inflammatory change room attendant a long segment of sigmoid colon with small amount of fluid within the cul-de-sac without air within it. There is an intraloop heterogeneous region/collection which may represent phlegmon about the left side of the sigmoid colon measuring approximately 4.7 x 2.9 x 2.4 cm in size which does not have nondependent gas within it and therefore is not fluid. LYMPH NODES: There is left upper pelvic lymphadenopathy present. VASCULAR: There is a small 2.6 cm infrarenal abdominal aortic aneurysm. This does not extend into the bifurcation. No visceral artery occlusion is appreciated. IMPRESSION: Sigmoid colitis with small amount of free fluid within the cul-de-sac and what appears to be a phlegmon adjacent to the left sigmoid colon. No definite visceral vessel obstruction to suggest occlusive mesenteric ischemia. Cholelithiasis without evidence of acute cholecystitis. Review of Systems Constitutional: Constitutional: Denies fever(s), Denies headache(s) and Reports weight loss Eyes: Eyes: Denies eye discharge and Denies irritation ENT: Reports Normal hearing present, Denies dysphagia, Denies dizziness and Denies headache(s) Cardiovascular: Cardiovascular: Denies chest pain, Denies leg edema and Denies dyspnea on exertion Respiratory: Respiratory: Denies cough, Denies dyspnea on exertion and Denies wheezing Gastrointestinal: Gastrointestinal: Reports abdominal pain, Denies change in bowel habits, Reports constipation, Denies dysphagia and Denies heartburn Genitourinary: Genitourinary: Denies dysuria Musculoskeletal: Musculoskeletal: Denies back pain and Denies arthralgias Integumentary/Breasts: Skin/Breast: Denies pruritus, Denies rash and Denies jaundice Neurologic: Reports Normal hearing present, Denies Abnormal speech present, Denies dizziness, Denies headache(s) and Denies seizure-like activity Psychiatric: Psychiatric: Denies anxiety, Denies depression and Denies panic attacks Endocrine: Endocrine: Denies cold intolerance, Denies flushing and Denies heat intolerance Hematologic/Lymphatic: Hematologic/Lymphatic: Denies easy bleeding and Denies easy bruising Allergic/Immunologic: Allergic/Immunologic: Denies wheezing PMFSH Past Medical History Medical History (Updated 01/17/21 @ 17:25 by Shadia Topete MD) Depression Hypertension Social History Social History (Updated 01/16/21 @ 18:42 by Moose Smoers MD) Household Members: Spouse Housing: Apartment Do you presently have visiting nurse or other home services: No Alcohol intake: never Patient Tobacco Use Status: Current everyday Tobacco user Tobacco use type: Cigarette Cigarette Packs Per Day: 0.34 Cigarettes Per Day: 6.8 Smoked in Last 30 Days: Yes e-Cigarette/Vaping Use: Currently Using Date Education Initiated: 01/17/21 Second Hand Smoke Exposure: No Use of substances other than those prescribed or required for medical reasons: No Currently Displaying Signs/Symptoms of Drug Intoxication Withdrawal: No Any prior treatment program specific to substance use: No Have you been hit, kicked, punched, or otherwise hurt by someone within the past year? If so, by whom?: No Do you feel safe in your current relationship?: No Is there a partner from a previous relationship who is making you feel unsafe now?: No Are you made to feel afraid or neglected: No Advance Directives: No Advance Directives Information Provided: Yes Advance Directives on File: No Do you have thoughts of harming others: None Do you have a plan to hurt others: No Plan Recently lost weight without trying: Yes How much weight loss: 34pounds or more Eating poorly because of decreased appetite: Yes Nutrition screen score: 7 Nutrition Risks: Acute nausea or vomiting x1 week and Poor intake 0-25% >4 days Poor oral hygiene: No service: No Current occupational status: unemployed Current occupation: Works in [employer] department at [employer] Meds Allergies Allergy/AdvReac Type Severity Reaction Status Date / Time No Known Allergies Allergy Unknown UN Verified 01/16/21 11:41 Active Medications: Current Medications Generic Name Dose Route Start Last Admin Trade Name Freq PRN Reason Stop Dose Admin Acetaminophen 650 mg 01/16/21 18:14 Acetaminophen 325 Mg Tablet PO Q6H PRN Pain, Mild (Pain Scale 1-3) Enoxaparin Sodium 40 mg 01/16/21 18:15 01/16/21 20:12 Enoxaparin Sodium 40 Mg/0.4 Ml Syringe SUBCUT Not Given Q24H TORREY Metronidazole 500 mg in 100 mls @ 100 mls/hr 01/17/21 03:00 01/17/21 12:09 Flagyl IV Infused Q8H TORREY Infusion Levofloxacin 500 mg in 100 mls @ 100 mls/hr 01/17/21 18:00 Levaquin IV Q24H TORREY Dextrose/Sodium Chloride 1,000 mls @ 100 mls/hr 01/17/21 08:00 01/17/21 07:38 D51/2ns IVCONT 100 mls/hr .Q10H TORREY Administration Melatonin 6 mg 01/16/21 18:14 Melatonin 3 Mg Tablet PO BEDTIME PRN Insomnia Morphine Sulfate 2 mg 01/16/21 18:14 Morphine Sulfate 2 Mg/Ml Cartridge IVPUSH Q4H PRN Pain, Severe (Pain Scale 7-10) Pharmacy Consult 1 each 01/17/21 10:44 Consult Rx Perform Med Rec MISCELLANE ONCE PRN Consult order Sodium Chloride 3 ml 01/17/21 00:00 01/17/21 07:40 0.9 % Sodium Chloride Flush 3 Ml Syringe IVFLUSH Not Given QSHIFT [facility] Home Medications Medication Instructions Recorded Confirmed Last Taken Type amlodipine 1 tab PO DAILY 01/17/21 01/17/21 01/15/21 History aspirin 1 tab PO DAILY 01/17/21 01/17/21 01/15/21 History bupropion HCl 1 tab PO DAILY 01/17/21 01/17/21 01/15/21 History hydrochlorothiazide 1 tab PO DAILY 01/17/21 01/17/21 01/15/21 History metoprolol succinate 1 tab PO DAILY 01/17/21 01/17/21 01/15/21 History trazodone 1 tab PO BEDTIME 01/17/21 01/17/21 01/15/21 History Physical Exam Vital Signs: Vital Signs: Last Vital Signs Temp 96.9 F 01/17/21 12:00 Pulse 57 01/17/21 12:00 Resp 20 01/17/21 12:00 BP 129/74 01/17/21 12:00 Pulse Ox 98 01/17/21 12:00 Body Mass Index 36.5 Const: General: healthy appearing and no acute distress Nutritional Appearance: obese Orientation/consciousness: patient oriented x3 Limitations: no limitations HENMT: Head: Yes normal to inspection Ears: hearing grossly normal bilaterally Mouth: Normal oral and palatal mucosa present Eyes: Sclerae: sclerae normal Pupils: Equal, round and reactive pupils present Neck: Neck: Yes normal visual inspection Chest: Chest palpation & inspection: normal inspection of the chest Resp: Effort & Inspection: normal respiratory effort Auscultation: clear to auscultation bilaterally Cardio: Palpation: normal PMI Rate: regular rate Rhythm: regular rhythm Heart sounds: S1 normal heart sound present, S2 normal heart sound present and no murmurs GI: Palpation (GI): Soft to palpation, nontender and No hepatosplenomegaly present Auscultation: normal bowel sounds Rectal Exam - Male: Yes deferred Skin: General skin exam: no rashes or lesions noted Neuro: General: patient oriented x3, gait normal and moves all extremities Cranial nerves: Yes Equal, round and reactive pupils present and Yes Normal hearing present Speech: No Abnormal speech present Psych: Appearance: grossly normal Mental Status: mental status grossly normal Results Labs CBC & Chem 7: 01/18/21 06:26 01/18/21 06:26 Labs: Short CBC 01/17/21 Range/Units 08:27 WBC 6.8 (4.8-10.8) X10*3/uL Hgb 12.2 L (14.0-18.0) g/dl Hct 36.9 L (42-52) % Plt Count 259 (160-400) X10*3/uL BMP 01/16/21 01/16/21 14:24 19:17 Potassium 2.8 L 3.1 L Urine 01/16/21 Range/Units 13:23 Urine Color YELLOW Urine Appearance CLOUDY Urine pH 6.0 (5.0-8.0) Ur Specific [place] >= 1.030 H (1.005-1.025) Urine Protein 2+ H (NEG-TRACE) MG/DL Urine Glucose (UA) NEG (NEG) MG/DL Microbiology Microbiology Results: Microbiology 01/16/21 14:24 Urine clean catch - Urine boone top Urine Culture - Final No growth. Assessment and Plan (1) Constipation: Qualifiers: Constipation type: chronic idiopathic constipation Qualified Code(s): K59.04 - Chronic idiopathic constipation Status: Acute (2) Diverticulitis large intestine: Status: Acute 55 YM with Gilbert's syndrome, htn admitted with 2 month hx of LLQ pain, sweating, change in BM with constipation and wt loss of [address] scan showed sigmoid colitis with small amount of free fluid within the cul-de-sac and a phlegmon adjacent to the left sigmoid colon. Pt was started on IV antibiotics for suspected colitis/diverticulitis. Prolonged course of illness, significant wt loss and normal WBC count and anemia raises concerns for colon cancer Pt notes improvement/ near resolution of abdominal pain since his hospitalization. RECOMMENDATIONS: 1. Continue Iv antibiotics and DC home on PO antibiotics. 2. CEA, iron studies 3. Pt will be scheduled for a colonoscopy as an outpatient in 2-3 weeks Procedures Date of Service Date of Service: 01/17/21
[2021-01-17] MEDS: Potassium Chloride ER 20 MEQ TAB.ER.PRT 40 MEQ PO (17:16)
[2021-01-17] MEDS: levoFLOXacin/D5W 500 MG/100 ML PIGGYBACK 100 MG IV (17:16)
--- NOTE | 2021-01-17 17:29 | PC.NURSE ---
P patient refuses lovenox I encouraged ambulation,Dr. Somers notified e will monitor
[2021-01-18] VITALS: BP 119/74; PULSE 58; RESP 16; TEMP 36.9; O2SAT 97
[2021-01-18 02:38] LABS: COVID-19 Test Negative (Negative)
[2021-01-18] MEDS: metroNIDAZOLE/NS 500 MG/100 ML PIGGYBACK 100 MG IV (04:11)
[2021-01-18 07:34] LABS: Iron 50 mcg/dL (45-160); Percent Iron Saturation 27 % (15-50); Total Iron Binding Capacity 183 mcg/dL (228-428); Unsaturated Iron Binding 133 ug/dL
[2021-01-18 07:43] LABS: Ferritin 688 ng/mL (20-250); Hemoglobin 12.2 g/dl (14.0-18.0); Mean Corpuscular Hemoglobin 28.5 pg (27.0-33.0); Mean Corpuscular Volume 86.4 fL (80-98); Mean Platelet Volume 8.6 fL (9.4-12.4); Platelet Count 271 X10*3/uL (160-400); Red Blood Count 4.28 X10*6/uL (4.60-5.80); Red Cell Distribution Width 13.4 % (11.0-16.0); White Blood Count 5.3 X10*3/uL (4.8-10.8)
[2021-01-18 08:00] VITALS: BP 127/75; PULSE 54; RESP 17; TEMP 36.6; O2SAT 96
[2021-01-18 08:02] LABS: Anion Gap 11 (12-20); Blood Urea Nitrogen 7 mg/dL (9-16); Carbon Dioxide 29 mmol/L (22-29); Chloride 104 mmol/L (96-108); Creatinine Clr Calc Pharmacy 105.2; Estimated Glomerular Filt Rate > 60; Glucose Random 97 mg/dL (60-115); Potassium 3.5 mmol/L (3.3-5.1); Sodium 140 mmol/L (135-145)
[2021-01-18 08:12] LABS: Calcium 8.6 mg/dL (8.4-10.2)
--- NOTE | 2021-01-18 09:57 | PM.DS ---
DS: Providers Provider Date of Service: 01/18/21 Date of admission: 01/16/21 18:14 Primary care physician: Bogdan Ha MD Consults: 01/16/21 18:54 Consult to Gastroenterology Routine Consulting Provider: Quinn Barfield Reason for consultation: colitis, weight loss, DS: Diagnosis Discharge Diagnosis (1) Constipation: Status: Acute (2) Diverticulitis large intestine: Status: Acute DS: Medications Discharge Medications Home Medications: Home Medications Medication Instructions Recorded Confirmed amlodipine 1 tab PO DAILY 01/17/21 01/17/21 aspirin 1 tab PO DAILY 01/17/21 01/17/21 bupropion HCl 1 tab PO DAILY 01/17/21 01/17/21 hydrochlorothiazide 1 tab PO DAILY 01/17/21 01/17/21 metoprolol succinate 1 tab PO DAILY 01/17/21 01/17/21 trazodone 1 tab PO BEDTIME 01/17/21 01/17/21 Previous Rx's Medication Instructions Recorded levofloxacin 500 mg PO DAILY 12 Days #12 tab 01/18/21 metronidazole [Flagyl] 500 mg PO Q8H 11 Days #33 tab 01/18/21 DS: Summary Hospital Course Hospital Course: Chief Complaint: Abdominal pain 55 year old male with HTN, takes Metoprolol, Norvasc and HCTZ, depression on Welbutrin and Trazadone. He presents with abdominal pain of right lower quadrant area for about 2 months now. Pain starts about 2 hours after after he eats and is associated bloating, belching and fullness. He has been moving his bowel but in small amoutn. He reports that 9 months ago, he had streak of blood in stool but has stopped. He has screening colonoscopy coming on Feb 05. He reports unintention 50 ib weight loss within a month. He has no nausea, vomitting or diarrhea, but feels lack of energy. He smokes less a pack a day. CT shows sigmoid diverticulitis Hospital coruse: Patient was admitted and treated with IV Levaquin and Flagyl for colitis with rapid clinical improvement and presently has no pain. GI (Dr. Topete) will arrange for outpatient colonoscopy. diet has been advanced to regular diet and he is tolerating. No fever. WBC is normal. Will discharge with Levaquin and Flagyl for 2 weeks of antibiotics Time Spent with Patient Time attestation: Total time spent providing and/or coordinating discharge services: Discharge coordination time: Greater than 30 minutes Quality: Stroke Does the patient have a stroke diagnosis?: No Physical Exam Vital Signs: Vital Signs: Last Vital Signs Temp 97.8 F 01/18/21 08:00 Pulse 54 01/18/21 08:00 Resp 17 01/18/21 08:00 BP 127/75 01/18/21 08:00 Pulse Ox 96 01/18/21 08:00 Body Mass Index 36.5 Const: Other: General: AO X 3, no acute distress Resp: CTA bilateral CVS: S1,S2,RRR GI: +BS, NT, no distention, Skin: No rash Neuro: motor grossly intact Psych: appropriate affect DS: Data Data Completed and Pending Labs on day of discharge: Laboratory Results - last 24 hr 01/18/21 01/18/21 01/18/21 02:10 06:26 06:26 WBC RBC Hgb Hct MCV MCH MCHC RDW Plt Count MPV Absolute Nucleated RBC Nucleated RBC % (auto) Sodium Potassium Chloride Carbon Dioxide Anion Gap BUN Creatinine Estim Creat Clear Calc Estimated GFR Random Glucose Calcium Iron 50 TIBC 183 L % Saturation 27 Unsat Iron Binding 133 Ferritin 688 H Carcinoembryonic Ag 1.40 COVID-19 ([facility]) Negative COVID-19 Clin Com See Note 01/18/21 01/18/21 06:26 06:26 WBC 5.3 RBC 4.28 L Hgb 12.2 L Hct 37.0 L MCV 86.4 MCH 28.5 MCHC 33.0 RDW 13.4 Plt Count 271 MPV 8.6 L Absolute Nucleated RBC 0.000 Nucleated RBC % (auto) 0.0 Sodium 140 Potassium 3.5 Chloride 104 Carbon Dioxide 29 Anion Gap 11 L BUN 7 L D Creatinine 0.96 Estim Creat Clear Calc 105.2 Estimated GFR > 60 Random Glucose 97 Calcium 8.6 D Iron TIBC % Saturation Unsat Iron Binding Ferritin Carcinoembryonic Ag COVID-19 ([facility]) COVID-19 Clin Com Discharge Plan Discharge Anticipated Discharge Date/Time: 01/18/21 09:40 Patient Disposition: Home, Self-Care Discharge Diagnosis: Colitis Referrals: Bogdan Ha MD [Primary Care Provider] - 1 Week Efrem,Rubeela, MD [Physician] - 1 Week (Call to be arranged for follow up for colonoscopy set up) Discharge Medications: New metronidazole [Flagyl] 500 mg tablet 500 mg PO Q8H 11 Days Qty: 33 RF: 0 levofloxacin 500 mg tablet 500 mg PO DAILY 12 Days Qty: 12 RF: 0 Continued bupropion HCl 150 mg tablet sustained-release 12 hr 1 tab PO DAILY RF: 0 trazodone 50 mg tablet 1 tab PO BEDTIME RF: 0 metoprolol succinate 50 mg tablet extended release 24 hr 1 tab PO DAILY RF: 0 aspirin 81 mg tablet,delayed release (DR/EC) 1 tab PO DAILY RF: 0 amlodipine 10 mg tablet 1 tab PO DAILY RF: 0 hydrochlorothiazide 25 mg tablet 1 tab PO DAILY RF: 0 Discharge Orders: Discharge Order (Routine); Ordered 01/18/21 Ordered By: Moose Somers Diet: advance to usual diet Activity on Discharge: As tolerated Stand Alone Forms: Patient Portal Discharge page Care Plan Goals: Full recovry from colitis Health Concerns: colitis and need screening colonoscopy Plan of Treatment: Take Levaquin and Flagyl as recommended and follow up with Dr. Topete for colonosocpy Assessment: See above
--- NOTE | 2021-01-18 10:44 | MHC.CM.PN ---
PATIENT IS DISCHARGED HOME - SELF CARE. RN AWARE OF PLAN. PATIENT'S SPOUSE/HCP TO PROVIDE TRANSPORTATION.
== END 2021-01-18 11:33 | disposition home or self-care (01) | DRG 244 ==
LOC: HO.ED 13:23 → HO.EDOVER 18:25 → HO.S3 01-17 05:34
PROVIDERS: Internal Medicine Gastroenterology; Nurse Practitioner Family; Admitting Provider Internal Medicine; Emergency Provider Emergency Medicine Emergency Medical Services; PCP Internal Medicine; Visit Provider Internal Medicine
DX: K57.32 Diverticulitis of large intestine without perforation or abscess without bleeding (principal); E87.6 Hypokalemia; K59.04 Chronic idiopathic constipation; F17.210 Nicotine dependence, cigarettes, uncomplicated; F32.9 Major depressive disorder, single episode, unspecified; I10 Essential (primary) hypertension; Z71.6 Tobacco abuse counseling; Z20.822 Contact with and (suspected) exposure to COVID-19; Z79.82 Long term (current) use of aspirin; Z79.899 Other long term (current) drug therapy
CPT/HCPCS: 36415; 74177; 80048; 80053; 81001; 82378; 82728; 83540; 83690; 83735; 84132; 85025; 85027; 87086; 87635; 99285; J1650; J1956; Q9967

== ENCOUNTER 2021-01-28 12:26 | Outpatient (REF) | payer MEDICAID, SELFPAY ==
[2021-01-28 13:00] LABS: Hemoglobin 13.1 g/dl (14.0-18.0); Mean Corpuscular Hemoglobin 28.4 pg (27.0-33.0); Mean Corpuscular Volume 88.7 fL (80-98); Mean Platelet Volume 9.2 fL (9.4-12.4); Platelet Count 300 X10*3/uL (160-400); Red Blood Count 4.62 X10*6/uL (4.60-5.80); Red Cell Distribution Width 14.5 % (11.0-16.0); White Blood Count 6.8 X10*3/uL (4.8-10.8)
[2021-01-28 13:19] LABS: Alanine Aminotransferase 22 U/L (0-40); Alkaline Phosphatase 72 U/L (39-117); Anion Gap 12 (12-20); Aspartate Amino Transferase 20 U/L (5-37); Bilirubin Total 0.9 mg/dL (0.0-1.0); Blood Urea Nitrogen 22 mg/dL (9-16); Calcium 9.7 mg/dL (8.4-10.2); Carbon Dioxide 30 mmol/L (22-29); Chloride 103 mmol/L (96-108); Estimated Glomerular Filt Rate > 60; Glucose Random 91 mg/dL (60-115); Potassium 3.8 mmol/L (3.3-5.1); Sodium 141 mmol/L (135-145); Total Protein 7.2 g/dL (6.5-8.0)
[2021-01-28 13:20] LABS: Estimated Average Glucose 103 mg/dL; Hemoglobin A1c % 5.2 %
[2021-01-28 13:42] LABS: Prostate Specific Antigen 1.19 ng/mL (<0.05-4.0); Thyroid Stimulating Hormone 1.33 uIU/mL (0.32-4.0)
== END 2021-01-28 12:27 | disposition home or self-care (01) ==
LOC: HO.LAB 12:26
PROVIDERS: Visit Provider Family Medicine
DX: K57.92 Diverticulitis of intestine, part unspecified, without perforation or abscess without bleeding (principal)
CPT/HCPCS: 36415; 80053; 83036; 84153; 84443; 85027

== ENCOUNTER 2021-02-03 12:24 | Day surgery (SDC) | payer MEDICAID, SELFPAY ==
--- NOTE | 2021-01-31 08:42 | P.CONAN_ITS ---
HPI - Anesthesia Eval Consult details Narrative: 55yo [place] [facility] [place]18 with actute divertic PMFSH Active Problems Active Problems: All Active Problems (Updated 01/26/21 @ 00:02 by Background Daemon) Diverticulitis large intestine (Acute) Obesity (BMI 35.0-39.9 without comorbidity) (Acute) Gilbert's syndrome (Acute) Past Medical History Medical History (Updated 01/26/21 @ 00:02 by Background Daemon) Colitis Constipation Depression Hypertension Social History Social History (Updated 01/16/21 @ 18:42 by Moose Somers MD) Household Members: Spouse Housing: Apartment Do you presently have visiting nurse or other home services: No Alcohol intake: never Patient Tobacco Use Status: Current everyday Tobacco user Tobacco use type: Cigarette Cigarette Packs Per Day: 0.34 Cigarettes Per Day: 6.8 e-Cigarette/Vaping Use: Currently Using Second Hand Smoke Exposure: No Use of substances other than those prescribed or required for medical reasons: No Are you DNR?: No Advance Directives: No Advance Directives Information Provided: Yes Advance Directives on File: No service: No Current occupational status: unemployed Current occupation: Works in [employer] department at [employer] Meds Allergies Allergy/AdvReac Type Severity Reaction Status Date / Time No Known Allergies Allergy Unknown UN Verified 01/16/21 11:41 Home Medications Medication Instructions Recorded Confirmed Last Taken Type amlodipine 10 mg tablet 1 tab PO DAILY 01/17/21 01/17/21 01/15/21 History aspirin 81 mg tablet,delayed 1 tab PO DAILY 01/17/21 01/17/21 02/01/21 History release bupropion HCl 150 mg tablet,12 hr 1 tab PO DAILY 01/17/21 01/17/21 01/15/21 History sustained-release hydrochlorothiazide 25 mg tablet 1 tab PO DAILY 01/17/21 01/17/21 01/15/21 History metoprolol succinate 50 mg 1 tab PO DAILY 01/17/21 01/17/21 01/15/21 History tablet,extended release 24 hr trazodone 50 mg tablet 1 tab PO BEDTIME 01/17/21 01/17/21 01/15/21 History Exam Exam Date and Time: January 31, 2021 0842 Pertinent Lab Results Pertinent Lab Results: Laboratory Tests 01/28/21 01/28/21 12:35 12:35 WBC 6.8 Hgb 13.1 L Hct 41.0 L Plt Count 300 Sodium 141 Potassium 3.8 Chloride 103 Carbon Dioxide 30 H BUN 22 H D Creatinine 1.23 Assessment and Plan Assessment Anesthesia Assessment: Chart Reviewed
[2021-02-03 12:46] VITALS: BMI 34.1
[2021-02-03 12:50] VITALS: BP 112/78; PULSE 69; RESP 16; TEMP 36.3; O2SAT 97
[2021-02-03] MEDS: Lactated Ringers 1,000 ML 100 ML IVCONT (12:57)
--- NOTE | 2021-02-03 14:27 | MHC.SHP ---
Pre-Procedural Eval Section A Date of Service: 02/03/21 The patient is an INPATIENT: No Changes since office visit: Yes Patient answered all questions; No Cold of Flu in the past 2 weeks, No New Medical Problems and No Changes in Medication The History & Physical has been completed within 30 days and I have reviewed it.: Yes Section B Chief Complaint: diverticulitis of intestine Allergies: Allergies Allergy/AdvReac Type Severity Reaction Status Date / Time No Known Allergies Allergy Unknown UN Verified 01/16/21 11:41 Exam Surgical H&P Exam: Normal: Heart, Normal: Lungs, Normal: Extremities and Normal: Abdomen Plan Diagnosis/Plan: Unchanged I have reviewed the history and physical and performed a pertinent physical examination on my patient. No changes have occurred unless specified.
--- NOTE | 2021-02-03 14:34 | P.CONAN_ITS ---
[facility] Active Problems Active Problems: All Active Problems (Updated 01/26/21 @ 00:02 by Background Da beth) Diverticulitis large intestine (Acute) Obesity (BMI 35.0-39.9 without comorbidity) (Acute) Gilbert's syndrome (Acute) Past Medical History Medical History (Updated 01/26/21 @ 00:02 by Background Jay) Colitis Constipation Depression Hypertension Social History Social History (Updated 01/16/21 @ 18:42 by Moose Somers MD) Household Members: Spouse Housing: Apartment Do you presently have visiting nurse or other home services: No Alcohol intake: never Patient Tobacco Use Status: Current everyday Tobacco user Tobacco use type: Cigarette Cigarette Packs Per Day: 0.34 Cigarettes Per Day: 6.8 e-Cigarette/Vaping Use: Currently Using Second Hand Smoke Exposure: No Use of substances other than those prescribed or required for medical reasons: No Are you DNR?: No Advance Directives: No Advance Directives Information Provided: Yes Advance Directives on File: No service: No Current occupational status: unemployed Current occupation: Works in [employer] at [employer] Meds Allergies Allergy/AdvReac Type Severity Reaction Status Date / Time No Known Allergies Allergy Unknown UN Verified 01/16/21 11:41 Active Medications: Current Medications Generic Name Dose Route Start Last Admin Trade Name Freq PRN Reason Stop Dose Admin Albuterol Sulfate 2.5 mg 02/03/21 12:44 Albuterol Sulfate (0.083%) 2.5 Mg/3 Ml Vial.Neb INHALE ONCE PRN Shortness of Breath/Wheezing Lactated Ringer's 1,000 mls @ 100 mls/hr 02/03/21 12:45 02/03/21 12:57 Lr IVCONT 100 mls/hr .Q10H TORREY Administration Home Medications Medication Instructions Recorded Confirmed Last Taken Type amlodipine 10 mg tablet 1 tab PO DAILY 01/17/21 01/17/21 01/15/21 History aspirin 81 mg tablet,delayed 1 tab PO DAILY 01/17/21 01/17/21 02/01/21 History release bupropion HCl 150 mg tablet,12 hr 1 tab PO DAILY 01/17/21 01/17/21 01/15/21 History sustained-release hydrochlorothiazide 25 mg tablet 1 tab PO DAILY 01/17/21 01/17/21 01/15/21 History metoprolol succinate 50 mg 1 tab PO DAILY 01/17/21 01/17/21 01/15/21 History tablet,extended release 24 hr trazodone 50 mg tablet 1 tab PO BEDTIME 01/17/21 01/17/21 01/15/21 History Exam Exam Date and Time: February 03, 2021 1434 Height,Weight and Vital Signs: Height 5 ft 9 in Weight 104.78 kg Last Vital Signs Temp 97.4 F 02/03/21 12:50 Pulse 69 02/03/21 12:50 Resp 16 02/03/21 12:50 BP 112/78 02/03/21 12:50 Pulse Ox 97 02/03/21 12:50 Airway TM Dist: >3cm Neck ROM: Full Loose/Missing/Broken Teeth: Yes, Upper and Lower
--- NOTE | 2021-02-03 15:20 | PM.OP ---
Brief Operative Note Date of Service: 02/03/21 Pre-op diagnosis: Recent episode of abd pain due to diverticulitis, wt loss, abnormal CT scan Post-op diagnosis: other (Colon polyps, diverticulosis, hemorrhoids, edematous folds sigmoid colon) Procedure: COLONOSCOPY TILL CECUM WITH BIOPSIES AND SNARE POLYPECTOMY Consent: Indications for the procedure and potential complications of bleeding, perforation, reaction to medications and missed diagnosis were discussed with the patient and informed consent was obtained. Instrument: Olympus PCF H 190 L variable stiffness pediatric colonoscope Monitoring: Vital signs and clinical assessment, intermittent blood pressure monitoring, continuous EKG monitoring, Pulse oximetry and Carbon Dioxide monitoring were done throughout the procedure. Colon withdrawl time was 40 minutes. Procedure: The patient was placed in the left lateral decubitis position and pre-procedure medications were administered. After a digital rectal examination of the ano-rectum, the video colonoscope was inserted into the rectum and advanced through the colon to the cecum. The colonoscope was slowly withdrawn in a retrograde panoramic fashion and the colon mucosa was carefully examined including a retroflexed view of the rectum. Findings and interventions are described below. Procedure Difficulty: Colon was tortuous with excessive spasm. Findings: Terminal Ileum: Not evaluated Cecum: Normal Ascending Colon: Moderate diverticulosis Transverse Colon: A 4-5 mm sessile polyp removed with a cold bx and a 10 mm sessile polyp removed with a cold snare. Moderate diverticulosis. Descending Colon: Moderate diverticulosis Sigmoid Colon: A 12 -15 mm sessile polyp removed with a hot snare. An 8-10 mm sessile polyp removed with a cold snare. Severe diverticlosis with edematous folds form 20 to 30 cms - biopsies were obtained. Rectum: Normal Ano-rectum: Small internal hemorrhoids Colon preparation: Good Impression and Post Procedure Diagnosis: Colonoscopy Findings: Four small to medium sized polyps removed Moderate to severe diverticulosis seen in the entire colon Severe diverticlosis with edematous folds form 20 to 30 cms - biopsies were obtained. Small hemorrhoids on retroflexed exam. Abnormal CT scan likely due to diverticulitis - no evidence of colon mass on colonoscopy. Plan: Await pathology results Patient has an appointment on 02/27/21 in the GI Clinic with Shadia Topete M.D.. Repeat Colonoscopy interval based on path results - in 3-5 years if polyps are adenomatous and 10 years if polyps are hyperplastic. Above findings were reviewed with the patient and colon polyps and diverticulosis handouts were given in the discharge area Surgeon: Shadia Topete MD Anesthesia: MAC (Liza Ayers CRNA) Was an Centrifugal Supervisor used for this Procedure?: Yes Centrifugal Supervisor: Ifrah Gomez Estimated blood loss (mL): 0 Pathology: other (A. TRANSVERSE COLON POLYP B. RANDOM COLON BX'S R/O MICROSCOPIC COLITIS C. SIGMOID COLON POLYPS D. BX'S OF ENLARGED FOLDS) Condition: stable Disposition: PACU
[2021-02-03 16:33] VITALS: BP 98/70; PULSE 66; RESP 12; TEMP 36.5; O2SAT 98
[2021-02-03 16:38] VITALS: BP 107/55; PULSE 61; RESP 16; O2SAT 97
[2021-02-03 16:43] VITALS: BP 115/75; PULSE 64; RESP 17; O2SAT 96
[2021-02-03 16:48] VITALS: BP 107/71; PULSE 61; RESP 16; TEMP 36.3; O2SAT 97
[2021-02-03 17:14] VITALS: BP 116/86; PULSE 60; RESP 16; TEMP 36.1; O2SAT 98
--- NOTE | 2021-02-09 18:00 | W.PM.OPN ---
Operative Note Operative Note Date of Service: 02/03/21 Narrative: Pre-op diagnosis:?Recent episode of abd pain due to diverticulitis, wt loss, abnormal CT scan Post-op diagnosis:?other (Colon polyps, diverticulosis, hemorrhoids, edematous folds sigmoid colon) Procedure:? COLONOSCOPY TILL CECUM WITH BIOPSIES AND SNARE POLYPECTOMY Consent: Indications for the procedure and potential complications of bleeding, perforation, reaction to medications and missed diagnosis were discussed with the patient and informed consent was obtained. Instrument: Olympus PCF H 190 L variable stiffness pediatric colonoscope Monitoring: Vital signs and clinical assessment, intermittent blood pressure monitoring, continuous EKG monitoring, Pulse oximetry and Carbon Dioxide monitoring were done throughout the procedure. Colon withdrawl time was 40 minutes. Procedure: The patient was placed in the left lateral decubitis position and pre-procedure medications were administered. After a digital rectal examination of the ano-rectum, the video colonoscope was inserted into the rectum and advanced through the colon to the cecum. The colonoscope was slowly withdrawn in a retrograde panoramic fashion and the colon mucosa was carefully examined including a retroflexed view of the rectum. Findings and interventions are described below. Procedure Difficulty: Colon was tortuous with excessive spasm. Findings: Terminal Ileum: Not evaluated Cecum:? Normal Ascending Colon:? Moderate diverticulosis Transverse Colon:? A 4-5 mm sessile polyp removed with a cold bx and a 10 mm sessile polyp removed with a cold snare.? Moderate diverticulosis. Descending Colon:? Moderate diverticulosis Sigmoid Colon:? A 12 -15 mm sessile polyp removed with a hot snare.? An 8-10 mm sessile polyp removed with a cold snare.? Severe diverticlosis with edematous folds form 20 to 30 cms - biopsies were obtained. Rectum:? Normal Ano-rectum:? Small internal hemorrhoids Colon preparation:? Good Impression and Post Procedure Diagnosis: Colonoscopy Findings: Four small to medium sized polyps removed Moderate to severe diverticulosis seen in the entire colon Severe diverticlosis with edematous folds form 20 to 30 cms - biopsies were obtained. Small hemorrhoids on retroflexed exam. Abnormal CT scan likely due to diverticulitis - no evidence of colon mass on colonoscopy. Plan: Await pathology results Patient has an appointment on 02/27/21 in the GI Clinic with Shadia Topete M.D.. Repeat Colonoscopy interval based on path results - in 3-5 years if polyps are adenomatous and 10 years if polyps are hyperplastic. Above findings were reviewed with the patient and colon polyps and diverticulosis handouts were given in the discharge area Surgeon:?Shadia Topete MD Anesthesia:?MAC (Lzia Ayers CRNA) Was an Telehealth Case Manager used for this Procedure?:?Yes Telehealth Case Manager:?Ifrah Gomez Estimated blood loss (mL):?0 Pathology:?other (A. TRANSVERSE COLON POLYP? B. RANDOM COLON BX'S R/O MICROSCOPIC COLITIS? C. SIGMOID COLON POLYPS? D. BX'S OF ENLARGED FOLDS) Condition:?stable Disposition:?PACU
== END 2021-02-03 17:14 | disposition home or self-care (01) ==
PROVIDERS: PCP Family Medicine; Visit Provider Internal Medicine Gastroenterology
PROC: 0DJD8ZZ Inspection of Lower Intestinal Tract, Via Natural or Artificial Opening Endoscopic (ICD-10-PCS; CPT 45378; principal; 2021-02-03 14:30)
DX: R93.5 Abnormal findings on diagnostic imaging of other abdominal regions, including retroperitoneum (principal); K57.30 Diverticulosis of large intestine without perforation or abscess without bleeding; Z87.19 Personal history of other diseases of the digestive system; D12.3 Benign neoplasm of transverse colon; K63.5 Polyp of colon; K64.8 Other hemorrhoids; K59.00 Constipation, unspecified; I10 Essential (primary) hypertension; E80.4 Gilbert syndrome; F32.9 Major depressive disorder, single episode, unspecified; F17.210 Nicotine dependence, cigarettes, uncomplicated; Z79.82 Long term (current) use of aspirin; Z79.899 Other long term (current) drug therapy
CPT/HCPCS: 45385; 45380; 88305

== ENCOUNTER → 2021-02-05 13:22 | Outpatient (REF) | payer MEDICAID, SELFPAY ==
--- NOTE | 2021-02-05 14:00 | CA_ITS ---
Transthoracic Echocardiogram Patient (Last, First, Middle): Jose Arenas E Gender: Male Date of : 1965 Age: 55 Procedure Date: 02/05/2021 Procedure Type: Transthoracic Echocardiogram Location: OP Height: 175.26 cm Weight: 109.77 kg BSA: 2.24 m2 Heart Rate: bpm BP: 135 / 70 mmHg Panel Installer: Adwoa MD: Bogdan Ha MD Information Specialist: Isaias Hui MD Symptoms: I10 HTN Study Quality: Good ECG Rhythm: Sinus Conclusions: - Essentially normal study Findings Left Ventricle Normal left ventricular size, thickness, and systolic function. The visually estimated ejection fraction is between 60-65%. Spectral Doppler is indicative of a normal filling pattern. Right Ventricle Normal right ventricular cavity size and systolic function. Atria Both atria are normal in size. There is no evidence of interatrial shunt. Aortic Valve Normal aortic valve structure and function. There is no aortic valve stenosis. There is no aortic valve regurgitation. Mitral Valve Normal mitral valve structure and function. There is trace mitral valve regurgitation. There is no mitral valve stenosis. Pulmonic Valve The pulmonic valve is likely normal. There is trace pulmonic valve regurgitation. Tricuspid Valve Normal tricuspid valve structure. There is trace tricuspid valve regurgitation. The right ventricular systolic pressure is normal. The right ventricular systolic pressure is 23 mmHg. Normal right atrial pressure. There is no evidence of pulmonary hypertension. Great Vessels All visible segments of the aorta are normal in size. The pulmonary artery was not well visualized. Venous The inferior vena cava is normal in size and collapses greater than 50% with inspiration. Pericardium/Pleural There is no evidence of pericardial effusion. Prior Study Comparison No previous study in the last 5 years for comparison Measurements 2D Linear Measurements RVIDd: 3.28 RVIDd Index: 1.46 IVSd: 1.15 0.6-0.9/0.6-1.0 cm LVIDd: 5.13 3.9-5.3/4.2-5.9 cm LVIDd Index: 2.29 2.4-3.2/2.2-3.1 cm/m2 LVIDs: 3.36 2.0-3.6 cm LVPWd: 1.43 0.7-1.1 cm Ao Root: 3.60 2.1-3.5 cm LA Diam: 4.80 2.7-3.8/3.0-4.0 cm LAIDs Index: 2.14 1.5-2.3 cm/m2 LV Mass: 336.24 67-162/88-224 g LV Mass Index: 150.11 43-95/49-115 g/m2 LVOT Diam: 2.30 3.0+(-)1.3 cm 2D Systolic Function EF 4C: 68.70 >55% EF 2C: 57.40 >55% EF BiP: 62.20 >55% Mitral Valve MV Pk E: 0.77 MV PK A: 0.63 MV Decel Time: 350.00 E/A: 1.20 E'Lateral: 9.03 E'Medial: 5.87 E/E' Med: 13.10 E/E' Lat: 8.50 Aortic Valve AoV Pk Tanner: 1.52 AoV Mn Tanner: 1.13 AoV VTI: 0.31 AoV Pk Grad: 9.00 Aov Mn Grad: 6.00 ARY Cont.VTI: 3.21 LVOT LVOT Pk Tanner: 1.23 LVOT Mn Tanner: 0.76 LVOT VTI: 0.24 LVOT Pk Grad: 6.00 LVOT Mn Grad: 3.00 LVOT Diam: 2.30 LVOT Area: 4.15 Diastolic Function MV Pk E: 0.77 MV Pk A: 0.63 E/A: 1.20 E'Medial: 5.87 E/E' Med: 13.10 E' Laterial: 9.03 E/E' Lat: 8.50 Right Ventricle TAPSE (mm): 2.50 TVS' Tanner: 9.03 Tricuspid Valve TR Pk Tanner: 2.26 TR Pk Grad: 20.00 RA Press: 3.00 RVSP: 23.00 Great Vessels Aorta Ao Root-2D: 3.60 2.0-3.7 cm Ao Asc: 3.50 2.1-3.4 cm Ao Arch: 3.50 Updated in Other Vendor System with Status of Final Isaias Hui MD electronically signed on 02/05/2021 5:26:05 PM with status of Final
== END ==
LOC: HO.CARD 13:22
PROVIDERS: PCP Internal Medicine; Visit Provider Internal Medicine
DX: I10 Essential (primary) hypertension (principal)
CPT/HCPCS: 93306

== ENCOUNTER → 2021-03-28 08:44 | Outpatient (BNV) | payer MEDICAID, SELFPAY | PROVIDERS: PCP Internal Medicine; Visit Provider Internal Medicine Medical Oncology | DX: C34.11 Malignant neoplasm of upper lobe, right bronchus or lung (principal); F17.210 Nicotine dependence, cigarettes, uncomplicated | CPT/HCPCS: 99203; 99213; 99214 ==

== ENCOUNTER 2021-04-08 09:45 | Outpatient (REF) | payer MEDICAID, SELFPAY ==
--- NOTE | ~2021-04-08 | PE_ITS ---
EXAMINATION: Fluorine-18 FDG PET/CT Scan CLINICAL INDICATION: Initial treatment management. Pulmonary cavitary lesion. PROCEDURE: 61 minutes following the intravenous administration of 23.7 mCi of fluorine 18 FDG, images from the base of the skull to the mid thighs were obtained using a combined PET/CT scanner with CT scan based attenuation correction. No oral contrast was administered. No intravenous contrast was administered. Transverse, coronal, sagittal, and volume reconstruction projections were obtained. The patient's blood glucose as determined by a finger stick, was 84 mg/dl immediately prior to injection. Total CT exam dose-length product 1136.43 mGy-cm * These CT images were obtained using dose optimization techniques as appropriate, variously including the following: Automated exposure control * Adjustment of mA and/or kV according to patient size (this includes techniques or standardized protocols for targeted exams where dose is matched to indication/reason for exam; i.e. extremities or head) * Use of iterative reconstruction technique COMPARISON: No previous PET/CT scan is available for comparison. The diagnostic CT scan of the abdomen and pelvis, dated 01/16/2021, is available for comparison. The report of a chest CT scan dated 03/20/2021 performed at [facility] [place] is available, but the images from that study are not available for review. FINDINGS: (Slice numbers described in this report are numbered superiorly to inferiorly with slice #1 in the head) NECK AND VISUALIZED HEAD: No foci of abnormal FDG activity are noted. The distribution of FDG activity is physiological. There is no cervical lymphadenopathy. THORAX: There is intense abnormally increased activity in a pleural-based cavitary lesion in the anterolateral aspect of the right upper lobe, and SUVmax 14.1, slice 68/267. On the CT images, this cavitary lesion measures 2.3 x 1.6 cm in largest transverse dimensions and approximately 1.8 cm cephalocaudad. There is a posterior pleural-based 2.6 cm groundglass opacity in the right lower lobe with no definite abnormal FDG activity but is inseparable from the adjacent liver on the FDG PET images. No additional foci of abnormal FDG activity are present in the chest. No additional pulmonary nodules are visualized. Small subcentimeter nodules described in the report of the 03/20/2021 CT scan are not visualized on these nondiagnostic CT images, and in addition all of these nodules are much too small to be characterized on the FDG PET images. There is no pleural or pericardial fluid. There is no mediastinal, supraclavicular, or axillary lymphadenopathy. Several mediastinal lymph nodes are noted but all of these measure less than 1 cm in short axis and most are too small to be characterized on the FDG PET images. ABDOMEN AND PELVIS: There is a focus of intense FDG activity in the sigmoid colon, SUVs Max 21.9, slice 196/267. This is associated with some wall thickening on the CT images and some normal adjacent soft tissue stranding. This corresponds to a region of diverticulitis present on the 01/16/2021 CT scan, but the soft tissue stranding on the current study is significantly less than on the 01/16/2021 study. There is FDG activity of varying intensities throughout the remainder the gastrointestinal tract with no corresponding CT abnormalities and likely physiological. There is a focus of FDG activity in the inferior aspect of the left lobe of the liver that is likely within the overlying distal stomach and no corresponding CT abnormality at this site is present. However a focal liver lesion at this site cannot be entirely ruled out. The liver is otherwise unremarkable. The gallbladder, and spleen are unremarkable. The kidneys, adrenal glands and pancreas are unremarkable. There is a subcentimeter mildly FDG avid right external iliac lymph node, SUVmax 3.5, slice 205/267. There is a mildly FDG avid subcentimeter right external iliac lymph node showing SUVmax 3.5, slice 205/267. Multiple additional subcentimeter left pelvic sidewall, external iliac, lymph nodes are present, the most prominent of these showing SUVmax 3.5 in the left pelvic sidewall, slice 208/267. There is an additional right common iliac lymph node at the S1 level rounded in configuration on the CT images and showing mild FDG activity, SUVmax 3.2, slice 196/267. No additional retroperitoneal, mesenteric, pelvic or inguinal lymphadenopathy is present. There is diffuse diverticulosis. Soft tissue stranding associated with diverticulitis present on 01/16/[address] scan is almost completely resolved. Small bilateral fat-containing inguinal hernias are present. MUSCULOSKELETAL: There are no foci of abnormal FDG activity within the osseous structures. There are diffuse degenerative changes in the spine most severe in the mid and lower thoracic spine. VASCULAR: Diffuse vascular calcifications including coronary are noted. PET/PET CT fusion skull to thigh IMPRESSION: 1. Intense abnormal FDG activity associated with a cavitary lesion in the right upper lobe of the lung is most likely malignant. 2. An intensely FDG avid focus in the sigmoid colon is noted and is strongly suspicious for malignancy at this site. This is within a region of previously identified diverticulitis on the 01/16/2021 CT scan. The diverticulitis appears almost completely resolved. Gastroenterology or surgical consult is recommended to further evaluate this region and if not contraindicated colonoscopy would be of additional diagnostic value. 3. An FDG avid focus in the inferior aspect of the left lobe of the liver cannot be entirely ruled out although the focus is likely in the adjacent distal stomach. A small metastasis at this site cannot be entirely excluded and further characterization of this region of the liver with MRI performed without and with intravenous contrast is recommended. This may also be of additional value if extended to the pelvis to evaluate the previously described intensely FDG avid sigmoid colon lesion. 4. Bilateral normal sized FDG avid pelvic lymph nodes are present and these are suspicious for malignancy, but could be inflammatory in etiology, particularly in the clinical setting of resolving diverticulitis. MRI performed without and with intravenous contrast may also be evaluated in evaluating these lymph nodes. 5. No additional abnormalities suspicious for other metastatic or malignant lesions are noted. 6. Diffuse vascular calcifications including coronary.
== END 2021-04-08 09:46 | disposition home or self-care (01) ==
LOC: HO.PET 09:45
PROVIDERS: PCP Internal Medicine; Visit Provider Internal Medicine Medical Oncology
DX: Z13.89 Encounter for screening for other disorder (principal)

== ENCOUNTER → 2021-04-11 08:44 | Outpatient (BNVA) | payer MEDICAID, SELFPAY | PROVIDERS: Visit Provider Internal Medicine Gastroenterology ==

== ENCOUNTER 2021-04-15 12:52 | Outpatient (REF) | payer MEDICAID, SELFPAY ==
--- NOTE | ~2021-04-15 | MR_ITS ---
EXAMINATION: MRI ABDOMEN WITHOUT/WITH CONTRAST MRI PELVIS WITHOUT/WITH CONTRAST CLINICAL INFORMATION: 55-year-old male with history of PET/CT imaging showing FDG activity and sigmoid colon, possible malignancy, possible colovesical fistula? Possible left lobe liver lesion on PET imaging. COMPARISON: CT abdomen and pelvis from 01/16/2021. PET/CT imaging from 04/08/2021. TECHNIQUE: MR imaging of the abdomen and pelvis was performed on a high-field magnet without and with intravenous administration of 10 mL Gadavist. FINDINGS: MRI ABDOMEN: LUNG BASES: Normal. No pulmonary consolidation or pleural effusion at either lung base. LIVER: The liver has normal size, shape, and proximal signal. No evidence of liver mass. GALLBLADDER AND BILIARY TREE: Gallbladder is physiologically distended. There is a 0.3 cm stone within the gallbladder lumen. No gallbladder wall thickening or pericholecystic fluid. PANCREAS: Normal. No edema, pancreatic ductal dilatation or mass. SPLEEN: Mild splenomegaly. The spleen measures 14.8 cm maximum dimension. ADRENAL GLANDS: Normal. KIDNEYS AND URETERS: Kidneys are normal in size and enhance symmetrically. No renal mass, hydronephrosis or perinephric fluid. Ureters are unremarkable. BOWEL AND PERITONEUM: Stomach and small bowel have a normal appearance. No dilated bowel loops. No mucosal hyperenhancement of small bowel. Multiple diverticula of the colon. No abdominal free fluid. ABDOMINAL WALL: Unremarkable. VASCULATURE: Mild atherosclerosis of the abdominal aorta without aneurysm. Inferior vena cava is normal. LYMPH NODES: No pathologic sized lymph nodes in the abdomen. SKELETAL: The visualized thoracic and lumbar vertebra have normal height, alignment and bone marrow signal. MRI PELVIS: PELVIC VISCERA: Prostate gland and seminal vesicles are unremarkable. GASTROINTESTINAL: Again noted are multiple diverticula of the visualized descending and sigmoid colon. There is an approximately 12 cm long segment of sigmoid colon that has a persistently thickened wall; however, there is no focal, measurable mucosal mass. There is persistent edema/stranding of the sigmoid mesentery. There is contrast enhancement along the wall of a colovesical fistula that tracks from the posteroinferior wall of the sigmoid to the posterior wall of the bladder near the dome. No bowel obstruction. BLADDER: There is no evidence of bladder mass or bladder diverticulum. The bladder wall is focally thickened at the site of entry of the colovesical fistula. Otherwise, the bladder wall is unremarkable. LYMPHOVASCULAR: No pathologic sized iliac or inguinal lymph nodes. The visualized IVC and iliac veins are normal; no venous thrombosis. SKELETAL: Transitional lumbosacral anatomy with hypertrophied right L5 transverse process that articulates with the sacrum. No acute findings in the visualized degenerated lower lumbar spine. There is a broad disc bulge, facet arthropathy and spinal canal stenosis at the L4-L5 level. The sacrum and sacroiliac joints are intact. No evidence of sacroiliitis. Small osteophytes are noted at mildly degenerated hips. MR/MR abdomen wo/w con IMPRESSION: * No evidence of hepatic mass or perihepatic lesion. No abnormalities in the region of suspected FDG activity at the level of the left lobe of the liver. * Colonic diverticulosis and imaging findings consistent with chronic diverticular disease and diverticulitis of the sigmoid colon. There is a chronically thick-walled segment of the sigmoid colon with surrounding edema/stranding of mesenteric fat, and a colovesical fistula is present. * Splenomegaly is noted. * Cholelithiasis without cholecystitis.
== END 2021-04-15 12:53 | disposition home or self-care (01) ==
LOC: HO.MRI 12:52
PROVIDERS: Visit Provider Internal Medicine Medical Oncology
DX: K63.3 Ulcer of intestine (principal); K76.9 Liver disease, unspecified
CPT/HCPCS: 72197; 74183; A9585

== ENCOUNTER 2021-04-18 12:47 | Day surgery (SDC) | payer MEDICAID, SELFPAY ==
--- NOTE | 2021-04-17 13:23 | P.CONAN_ITS ---
Documented by User: Lisa Regalado NP 04/17/21 13:27 HPI - Anesthesia Eval Consult details Narrative: 55yo M for Colonoscopy s/p [place] 01/2021 with MAC - dx'd with lung CA 02/2021, PET scan with + uptake in sigmoid PMFSH Active Problems Active Problems: All Active Problems (Updated 04/14/21 @ 08:14 by Jane Pearson PA-C) Pulmonary cavitary lesion (Acute) Nicotine dependence, cigarettes, uncomplicated (Acute) Abnormal PET scan of colon (Acute) Colovesical fistula (Acute) Diverticulosis (Acute) Diverticulitis large intestine (Acute) UTI (urinary tract infection) (Acute) Gilbert's syndrome (Acute) Obesity (BMI 35.0-39.9 without comorbidity) (Acute) Past Medical History Medical History (Updated 04/18/21 @ 10:18 by Jane Pearson PA-C) Colitis Constipation COPD (chronic obstructive pulmonary disease) Depression Gilbert's syndrome Hypertension Nicotine dependence, cigarettes, uncomplicated Obesity (BMI 35.0-39.9 without comorbidity) Obstructive sleep apnea Family History Family History Father Colon cancer Mother Diabetes Surgical History Surgical History History of colonoscopy Social History Social History Household Members: Spouse Housing: Apartment Do you presently have visiting nurse or other home services: No Alcohol intake: never Patient Tobacco Use Status: Current everyday Tobacco user Tobacco use type: Cigarette Cigarette Packs Per Day: 0.34 e-Cigarette/Vaping Use: Currently Using Second Hand Smoke Exposure: No Advance Directives: No Advance Directives Information Provided: Yes service: No Current occupational status: unemployed Current occupation: Works in [employer] department at [employer] Meds Allergies Allergy/AdvReac Type Severity Reaction Status Date / Time No Known Allergies Allergy Unknown UN Verified 04/18/21 09:27 Home Medications Medication Instructions Recorded Confirmed Last Taken Type amlodipine 10 mg tablet 1 tab PO DAILY 01/17/21 04/18/21 01/15/21 History aspirin 81 mg tablet,delayed 1 tab PO DAILY 01/17/21 04/18/21 02/01/21 History release bupropion HCl 150 mg tablet,12 hr 1 tab PO DAILY 01/17/21 04/18/21 01/15/21 Hist ory sustained-release hydrochlorothiazide 25 mg tablet 1 tab PO DAILY 01/17/21 04/18/21 01/15/21 History metoprolol succinate 50 mg 1 tab PO DAILY 01/17/21 04/18/21 01/15/21 History tablet,extended release 24 hr trazodone 50 mg tablet 1 tab PO BEDTIME 01/17/21 04/18/21 01/15/21 History Exam Exam Date and Time: April 17, 2021 1323 Pertinent Lab Results Pertinent Lab Results: Laboratory Tests 04/11/21 04/11/21 14:00 14:00 WBC 6.5 Hgb 13.5 L Hct 40.7 L Plt Count 228 Sodium 140 Potassium 3.4 Chloride 103 Carbon Dioxide 29 BUN 24 H Creatinine 1.16 Narrative Narrative: ECHO 01/2021 Conclusions: -? Essentially normal study?? Assessment and Plan Assessment Anesthesia Assessment: Chart Reviewed Documented by User: Maryjane Espinosa MD 04/18/21 13:26 [facility] Past Medical History Medical History (Updated 04/18/21 @ 10:18 by Jane Pearson PA-C) Colitis Constipation COPD (chronic obstructive pulmonary disease) Depression Gilbert's syndrome Hypertension Nicotine dependence, cigarettes, uncomplicated Obesity (BMI 35.0-39.9 without comorbidity) Obstructive sleep apnea Family History Family History Father Colon cancer Mother Diabetes Surgical History Surgical History History of colonoscopy Social History Social History Household Members: Spouse Housing: Apartment Do you presently have visiting nurse or other home services: No Alcohol intake: never Patient Tobacco Use Status: Current everyday Tobacco user Tobacco use type: Cigarette Cigarette Packs Per Day: 0.34 e-Cigarette/Vaping Use: Currently Using Second Hand Smoke Exposure: No Advance Directives: No Advance Directives Information Provided: Yes service: No Current occupational status: unemployed Current occupation: Works in [employer] department at [employer] Meds Allergies Allergy/AdvReac Type Severity Reaction Status Date / Time No Known Allergies Allergy Unknown UN Verified 04/18/21 09:27 Home Medications Medication Instructions Recorded Confirmed Last Taken Type amlodipine 10 mg tablet 1 tab PO DAILY 01/17/21 04/18/21 01/15/21 History aspirin 81 mg tablet,delayed 1 tab PO DAILY 01/17/21 04/18/21 02/01/21 History release bupropion HCl 150 mg tablet,12 hr 1 tab PO DAILY 01/17/21 04/18/21 01/15/21 History sustained-release hydrochlorothiazide 25 mg tablet 1 tab PO DAILY 01/17/21 04/18/21 01/15/21 History metoprolol succinate 50 mg 1 tab PO DAILY 01/17/21 04/18/21 01/15/21 History tablet,extended release 24 hr trazodone 50 mg tablet 1 tab PO BEDTIME 01/17/21 04/18/21 01/15/21 History Exam Airway Mallampati Class: II TM Dist: >3cm Neck ROM: Full
[2021-04-18 13:28] VITALS: BP 122/71; PULSE 60; RESP 16; TEMP 36.5; O2SAT 94; BMI 38.4
[2021-04-18] MEDS: Lactated Ringers 1,000 ML 100 ML IVCONT (13:38)
--- NOTE | 2021-04-18 13:41 | PC.NURSE ---
Pt stated I ate a sandwich last night around 6pm. When questioned about taking the prep and color/consistency of bowel movements, he stated My bowel movements are soft brown. I took all the prep, which I stated around around 10pm last night. Dr Topete and anesthesia aware. Awaiting order for fleet enema. Colonoscopy to be continued per Dr Topete.
[2021-04-18] MEDS: Sodium Phosphate,Mono-Dibasic 133 ML ENEMA PR ×2 (14:15→14:46)
--- NOTE | 2021-04-18 14:48 | MHC.SHP ---
Pre-Procedural Eval Section A Date of Service: 04/18/21 The patient is an INPATIENT: No Changes since office visit: Yes Patient answered all questions; No Cold of Flu in the past 2 weeks, No New Medical Problems and No Changes in Medication The History & Physical has been completed within 30 days and I have reviewed it.: Yes Section B Chief Complaint: diverticulitis Details of Present Illness: abnormal PET scan of the sigmoid colon Allergies: Allergies Allergy/AdvReac Type Severity Reaction Status Date / Time No Known Allergies Allergy Unknown UN Verified 04/18/21 09:27 Plan I have reviewed the history and physical and performed a pertinent physical examination on my patient. No changes have occurred unless specified.
--- NOTE | 2021-04-18 14:54 | P.OP_ITS ---
Operative Note Operative Note Date of Service: 04/18/21 Narrative: Pre-op diagnosis:?abnormal PET scan of sigmoid colon, suspected colo- vesical fistula Post-op diagnosis:?other (Severe diverticulosis, hemorrhoids) Procedure:? FLEXIBLE SIGMOIDOSCOPY TILL 80 CM WITH BIOPSIES Consent: Indications for the procedure and potential complications of bleeding, perforation, reaction to medications and missed diagnosis were discussed with the patient and informed consent was obtained. Instrument: Olympus PCF H 190 L variable stiffness pediatric colonoscope Monitoring: Vital signs and clinical assessment, intermittent blood pressure monitoring, continuous EKG monitoring, Pulse oximetry and Carbon Dioxide monitoring were done throughout the procedure. Colon withdrawl time was 20 minutes. Procedure: The patient was placed in the left lateral decubitis position and pre-procedure medications were administered. After a digital rectal examination of the ano-rectum, the video colonoscope was inserted into the rectum and advanced through the colon to 80 cms into the distal transverse colon. The colonoscope was slowly withdrawn in a retrograde panoramic fashion and the colon mucosa was carefully examined including a retroflexed view of the rectum. Findings and interventions are described below. Procedure Difficulty: Without difficulty Findings: Descending Colon:? Moderate diverticulosis Sigmoid Colon:? Severe diverticlosis with patchy and edematous folds from 20 to 30 cms - biopsies were obtained. Overall improvement in edema compared to previous colonoscopy.? No mass or fistula seen. Rectum:? Normal Ano-rectum:? Moderate internal hemorrhoids Colon preparation:? Good to fair after copious irrigation Impression and Post Procedure Diagnosis: Colonoscopy Findings: Severe diverticlosis with patchy erythema and edematous folds from 20 to 30 cms - biopsies were obtained. Overall improvement in edema compared to previous colonoscopy.? No mass or fistula seen. Presence of colo-vesical fistula was confirmed on recent MRI scan. Moderate hemorrhoids on retroflexed exam. Plan: Surgical referral for repair of the colo-vesical fistula. Pt is being scheduled for surgery for lung cancer in mid-April. Patient has an appointment on 05/26/21 in the GI Clinic with? Shadia Topete M.D.. Repeat Colonoscopy interval based in 3 yrs due to a hx of adenomatous colon polyps. Surgeon:?Shadia Topete MD Anesthesia:?MAC (Micaela Aguilar CRNA) Was an Associate Theatre Professor used for this Procedure?:?Yes Associate Theatre Professor:?Abi Coyle Estimated blood loss (mL):?0 Pathology:?other ( A:sigmoid colon bx) Condition:?stable Disposition:?PACU
[2021-04-18 15:35] VITALS: BP 97/58; PULSE 58; RESP 18; TEMP 36.1; O2SAT 96
[2021-04-18 15:50] VITALS: BP 109/70; PULSE 59; RESP 18; TEMP 36.1; O2SAT 95
== END 2021-04-18 16:15 | disposition home or self-care (01) ==
PROVIDERS: PCP Family Medicine; Visit Provider Internal Medicine Gastroenterology
PROC: 0DJD8ZZ Inspection of Lower Intestinal Tract, Via Natural or Artificial Opening Endoscopic (ICD-10-PCS; CPT 45378; principal; 2021-04-18 14:10)
DX: R93.3 Abnormal findings on diagnostic imaging of other parts of digestive tract (principal); K57.30 Diverticulosis of large intestine without perforation or abscess without bleeding; K64.8 Other hemorrhoids; N32.1 Vesicointestinal fistula; J44.9 Chronic obstructive pulmonary disease, unspecified; I10 Essential (primary) hypertension; C34.11 Malignant neoplasm of upper lobe, right bronchus or lung; E80.4 Gilbert syndrome; E66.9 Obesity, unspecified; Z68.39 Body mass index [BMI] 39.0-39.9, adult; F17.210 Nicotine dependence, cigarettes, uncomplicated
CPT/HCPCS: 45331; 88305; J2370

== ENCOUNTER 2021-05-02 13:40 | Outpatient (REF) | payer MEDICAID, SELFPAY ==
--- NOTE | 2021-05-02 17:28 | PFT_ITS ---
Forced vital capacity: FEV1, EIU83-03, and MVV are all normal. Post bronchodilator therapy, there is no significant change. Total lung capacity and residual volume normal. Diffusion capacity normal. CONCLUSION: Normal pulmonary function test. There is no evidence of obstructive or restrictive pulmonary disorder. Shira Corea MD MSB/MODL / [id number]
== END 2021-05-02 13:41 | disposition home or self-care (01) ==
LOC: HO.RESP 13:40
PROVIDERS: PCP Internal Medicine; Visit Provider Surgery
DX: J98.4 Other disorders of lung (principal)
CPT/HCPCS: 94060; 94727; 94729

== ENCOUNTER 2021-05-12 13:45 | Outpatient (REF) | payer MEDICAID, SELFPAY | END 2021-05-12 13:46 | disposition home or self-care (01) | LOC: HO.LAB 13:45 | PROVIDERS: PCP Internal Medicine; Visit Provider Internal Medicine Medical Oncology | DX: Z20.822 Contact with and (suspected) exposure to COVID-19 (principal); J98.4 Other disorders of lung | CPT/HCPCS: U0003; U0005 ==

== ENCOUNTER 2021-05-31 10:51 | Emergency (ER) | payer MEDICAID, SELFPAY ==
[2021-05-31 11:07] VITALS: BP 123/66; PULSE 57; RESP 18; TEMP 36.1; O2SAT 98; BMI 37.3
--- NOTE | 2021-05-31 11:31 | ED_ITS ---
HPI - Medical Clearance General Chief complaint: Medical Clearance Stated complaint: needs covid test clearance for surgery Wednesday Time Seen by Provider: 05/31/21 11:31 Source: patient Mode of arrival: ambulatory Limitations: no limitations History of Present Illness HPI Narrative: 55-year-old male presenting to the ED requesting a COVID swab due to he has surgery at [facility] on Wednesday. He reports that he does not have a ride to [facility] therefore he came here for further evaluation treatment. He denies any symptoms at this time and our outpatient lab was closed therefore he came to the ER. He denies any other symptoms complaints or concerns at this time. complaint: medical clearance requested Onset (ago): day(s) ( Today) Reason for Medical Clearance: medical condition ( plan for surgery) Place: home Alleged Intoxication: No Compliant with Home Medications: Yes Traumatic Symptoms: denies traumatic injury Associated Symptoms: denies other symptoms Treatments Prior to Arrival: none Related Information Home Medications Medication Instructions Recorded Confirmed amlodipine 10 mg tablet 1 tab PO DAILY 01/17/21 04/18/21 aspirin 81 mg tablet,delayed 1 tab PO DAILY 01/17/21 04/18/21 release bupropion HCl 150 mg tablet,12 hr 1 tab PO DAILY 01/17/21 04/18/21 sustained-release hydrochlorothiazide 25 mg tablet 1 tab PO DAILY 01/17/21 04/18/21 metoprolol succinate 50 mg 1 tab PO DAILY 01/17/21 04/18/21 tablet,extended release 24 hr trazodone 50 mg tablet 1 tab PO BEDTIME 01/17/21 04/18/21 Previous Rx's Medication Instructions Recorded sulfamethoxazole 800 1 tab PO Q12H 7 Days #14 tab 04/11/21 mg-trimethoprim 160 mg tablet (Bactrim DS) Allergies Allergy/AdvReac Type Severity Reaction Status Date / Time No Known Allergies Allergy Unknown UN Verified 05/31/21 11:07 Review of Systems Review of Systems: Constitutional : No Weight loss, No Fever, No Chills, No Night Sweats, No Fatigue, No Malaise ENT/Mouth : No Hearing loss, No Ear Pain, No Nasal Congestion, No Sinus Pain, No Hoarseness, No sore throat, No Rhinorrhea, No Swallowing Difficulty Eyes: No Eye Pain, No Swelling, No Redness, No Foreign Body, No Discharge, No Vision Changes Cardiovascular : No Chest Pain, No SOB, No Dyspnea on Exertion, No Orthopnea, No Edema, No Palpitations Respiratory : No Cough, No Sputum, No Wheezing, No Smoke Exposure, No Dyspnea Gastrointestinal : No Nausea, No Vomiting, No Diarrhea, No Constipation, No abdominal Pain, No Hematochezia, No Melena Genitourinary : no irregular bleeding, No Dysuria, No Urinary Frequency, No Hematuria, No Urinary Incontinence, No Urgency, No Flank Pain, No Urinary Flow Changes, No Hesitancy Musculoskeletal : No joint pain, No Myalgias, No Joint Swelling Skin : No Skin Lesions, No rash Neuro : No Weakness, No Numbness, No Paresthesias, No Loss of Consciousness, No Dizziness, No Headache Psych : No Anxiety/Panic, No Depression, No SI/HI/AH/VH, No Social Issues, Heme/Lymph: No Bruising, No Bleeding,No Lymphadenopathy Endocrine : No Polyuria, No Polydipsia, No Temperature Intolerance Yes all other systems are reviewed and are negative [facility] Past Medical History Attestation statement: The following information was validated with the patient. Medical History Colitis Constipation COPD (chronic obstructive pulmonary disease) Depression Gilbert's syndrome Hypertension Nicotine dependence, cigarettes, uncomplicated Obesity (BMI 35.0-39.9 without comorbidity) Obstructive sleep apnea Surgical History History of colonoscopy Family History Family History Father Colon cancer Mother Diabetes Social History Social History Household Members: Spouse Housing: Apartment Do you presently have visiting nurse or other home services: No Alcohol intake: never Patient Tobacco Use Status: Former Tobacco user Tobacco use type: Cigarette Cigarette Packs Per Day: 0.34 Years Smoked: 30 e-Cigarette/Vaping Use: Currently Using Second Hand Smoke Exposure: No Advance Directives: No Advance Directives Information Provided: Yes service: No Current occupational status: unemployed Current occupation: Works in [employer] department at [employer] Physical Exam Vital Signs: Vital Signs: Last Vital Signs Temp 96.9 F 05/31/21 11:07 Pulse 57 05/31/21 11:07 Resp 18 05/31/21 11:07 BP 123/66 05/31/21 11:07 Pulse Ox 98 05/31/21 11:07 BMI result Body Mass Index 37.3 vital signs have been reviewed as normal and appeared to be correct. Blood pressure normal Heart rate normal. Respiration rate normal. Temperature normal. Oxygen saturation normal. Appearance: Alert. Oriented X3. No acute distress. Head: Normal external exam. Normocephalic. Atraumatic. Eyes: PERRLA. EOMI. Conjunctiva and sclera normal. Eyelids normal. ENT: Pharynx normal. Uvula midline. Moist mucous membranes. Neck: Normal inspection. Neck supple. FROM. CVS: Normal heart rate and rhythm. Respiratory: No respiratory distress. Painless inspiration. Skin: Skin warm and dry. Normal skin color. Normal skin turgor. No rashes/lesions/lacerations noted. Extremities: No lower extremity edema. Extremities exhibit normal range of motion. Extremities nontender. Neuro: Oriented X 3. No motor deficit. No sensory deficit. Reflexes normal. Normal steady gait. No focal neuro deficits noted. Vascular: + radial pulses/+ 2 distal pedal pulses/+2 dorsalis pedis b/l. Normal cap refill. No cyanosis noted to upper extremity nails and lower extremity toes nails. Course Course Course Narrative: 55-year-old male presenting to the ED with no symptoms requesting a COVID swab for medical clearance for his surgery at [facility] on Wednesday. Will collect swab at this time. He signed up for the patient portal. He will be able to print out the results from the patient portal. I told him I will call him only if he has positive results within 2-4 hours. Along with instructions follow-up with primary care provider and to return if any new or worsening symptoms. Patient understands agrees with this plan. MDM - Medical Clearance Medical Records Attestation: I reviewed the patient's medical records. Lab Data Attestation: I reviewed the patient's lab results. Labs: Lab Results 05/31/21 Range/Units 11:24 Influenza Type A (PCR) NEGATIVE (Negative) Influenza Type B (PCR) NEGATIVE (Negative) RSV RNA Qual (PCR) NEGATIVE (Negative) SARS-CoV-2 RNA (RT-PCR) NEGATIVE (Negative) Discharge Plan Discharge Clinical Impression: Wellness examination Patient Disposition: Home, Self-Care Instructions: Normal Exam (ED) Additional Instructions: Based on your symptoms and history we have sent a COVID-19. Although your RESULT IS PENDING at this time. RESULTS should return within 2-4 hours. At this time you will be contacted with ONLY POSITIVE results. -Please wait until we contact you for your results. At this time you will be okay for discharge. Please plan for self quarantine for up to 14 days. Do not expose yourself to others. You may not go to work. If testing does come back negative you may return to activities as long as you are no longer having any symptoms for at least 3 days. Please continue to follow cold instructions and wash your hands frequently. You may take Tylenol as directed on the bottle for pain or fever. Patient seen in the emergency department on -------- and should be excused from work until negative test results AND until 72 hours without any symptoms AND at least 10 days have passed since symptoms first appeared or since last exposure to COVID-19 positive patient CDC Guidelines for home isolation: - Stay away from others - WEAR A MASK if you are sick AND STAY HOME - Cover your mouth and nose with a tissue when you cough or sneeze. Dispose of tissues in a lined trash can and wash your hands immediately with soap and water for at least 20 seconds. If soap and water are not available, clean hands with alcohol-based hand smocker that contains at least 60% alcohol. - Clean your hands often with soap and water for at least 20 seconds - Avoid touching your eyes, nose and mouth with unwashed hands - Do not share dishes, drinking glasses, cups, eating utensils, towels, or bedding with other people in your home. After using these items, wash them thoroughly with soap and water or put in the service order clerk. - Clean high-touch surfaces in your isolation area ( sick room and bathroom) every day; let a caregiver clean and disinfect high-touch surfaces in other areas of the home. Clean the area or item with soap and water or another detergent if it is dirty. Then, use a household disinfectant. - Limit contact with pets and animals: If you must care for a pet, wash your hands before and after interacting with them). Prescriptions: No Action sulfamethoxazole-trimethoprim [Bactrim DS] 800-160 mg tablet 1 tab PO Q12H 7 Days Qty: 14 RF: 0 bupropion HCl 150 mg tablet sustained-release 12 hr 1 tab PO DAILY RF: 0 trazodone 50 mg tablet 1 tab PO BEDTIME RF: 0 metoprolol succinate 50 mg tablet extended release 24 hr 1 tab PO DAILY RF: 0 aspirin 81 mg tablet,delayed release (DR/EC) 1 tab PO DAILY RF: 0 amlodipine 10 mg tablet 1 tab PO DAILY RF: 0 hydrochlorothiazide 25 mg tablet 1 tab PO DAILY RF: 0 Referrals: Bogdan Ha MD [Primary Care Provider] - 2 days Interventions: ED Discharge Assessment Last Done: 05/31/21 11:40 Discharge Date/Time: 05/31/21 11:41 Print Language: Danish
[2021-05-31 12:19] LABS: Influenza A PCR NEGATIVE (Negative); Influenza B PCR NEGATIVE (Negative); Resp Syncy Virus RNA Qual PCR NEGATIVE (Negative); SARS COV2 PCR INHOUSE NEGATIVE (Negative)
== END 2021-05-31 11:41 | disposition home or self-care (01) ==
LOC: HO.ED 11:39
PROVIDERS: Emergency Provider Emergency Medicine; PCP Internal Medicine
DX: Z01.812 Encounter for preprocedural laboratory examination (principal); Z20.822 Contact with and (suspected) exposure to COVID-19
CPT/HCPCS: 0241U; 36415; 99283

== ENCOUNTER → 2021-07-17 14:03 | Outpatient (BNVA) | payer MEDICAID, SELFPAY | PROVIDERS: PCP Internal Medicine; Referring Provider Internal Medicine; Visit Provider Surgery | DX: N32.1 Vesicointestinal fistula (principal) | CPT/HCPCS: 99202 ==

== ENCOUNTER 2021-08-06 13:01 | Outpatient (REF) | payer MEDICAID, SELFPAY ==
[2021-08-06 14:48] LABS: Estimated Glomerular Filt Rate > 60
[2021-08-06 15:17] LABS: Blood Urea Nitrogen 21 mg/dL (9-16)
== END 2021-08-06 13:02 | disposition home or self-care (01) ==
LOC: HO.LAB 13:01
PROVIDERS: PCP Internal Medicine; Visit Provider Surgery
DX: N32.1 Vesicointestinal fistula (principal)
CPT/HCPCS: 36415; 82565; 84520

== ENCOUNTER 2021-08-08 08:49 | Outpatient (REF) | payer MEDICAID, SELFPAY ==
--- NOTE | ~2021-08-08 | CT_ITS ---
EXAMINATION: CT ABDOMEN AND PELVIS WITH CONTRAST CLINICAL INFORMATION: Vesicointestinal fistula. COMPARISON: MRI abdomen/pelvis 04/15/2021, CT abdomen and pelvis 01/16/2021. TECHNIQUE: Multidetector volumetric images were obtained from the superior aspect of the liver through the pubic symphysis following administration 85 mL of Omnipaque 350 intravenous contrast. Sagittal and coronal reformatted images were obtained on the technologist's workstation. Oral contrast: No. This CT examination was performed using dose optimization techniques as appropriate, variously including the following: *Automated exposure control *Adjustment of mA and/or kV according to patient size (this includes techniques or standardized protocols for targeted exams where dose is matched to indication/reason for exam; i.e. extremities or head) *Use of iterative reconstruction technique DLP: 995 mGy-cm FINDINGS: LUNG BASES: Bibasilar atelectasis is present. LIVER, GALLBLADDER, AND BILIARY TREE: The liver is normal in size, shape, and attenuation. No focal hepatic lesion or biliary ductal dilatation is present. The gallbladder is unremarkable with no evidence of radiopaque gallstones, gallbladder wall thickening, or obvious pericholecystic inflammatory changes. PANCREAS: Unremarkable. SPLEEN: Unremarkable. ADRENAL GLANDS: Unremarkable. KIDNEYS AND URETERS: The kidneys are normal in size, shape, and attenuation. Calcification in the left kidney, most likely renovascular (3:40). No hydronephrosis, hydroureter, or calculi are seen. No perinephric stranding. PERITONEUM: Free intraperitoneal air is present. GASTROINTESTINAL TRACT AND BLADDER: A small hiatal hernia is present. There is marked thickening of the sigmoid colon present which abuts the bladder. Marked inflammatory changes are present in the surrounding fat. Extensive diverticular changes are present. Air is present within the bladder suspicious for a colovesical fistula. The fistulous connection itself is not visualized but there is definitely a lack of a fat plane between the sigmoid and the bladder at multiple levels (4:645). As stated above, free intraperitoneal air is present and a perforated viscus appears to be present, most likely sigmoid colon. Differential diagnosis would include diverticulitis versus sigmoid carcinoma. The remainder of the colon is unremarkable. There is marked dilatation of loops of small bowel in the left abdomen up to 4.6 cm in diameter. The transition point seems to be in the area of the marked sigmoid thickening and inflammation. ABDOMINAL WALL: No significant hernia is appreciated. LYMPH NODES: There is a prominent aortocaval lymph node measuring 1.7 cm (3:33) with some other surrounding smaller lymph nodes. No retroperitoneal lymphadenopathy VASCULAR: No portal venous gas is seen. Atherosclerotic change is present in the aorta and its branches without aneurysm or significant stenosis seen. PELVIC VISCERA: Prostate and seminal vesicles appear normal. No ascites is seen. OSSEOUS STRUCTURES: Mild degenerative changes. No evidence of osseous metastatic disease. 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 There is free intraperitoneal air present indicative of ruptured viscus, most likely the sigmoid. This critical result was discussed with Dr. Guerra at 2:45 PM on the day of the exam and it was ascertained that the content and urgency of the report was understood at the time of direct communication. Fleischner guidelines were followed.
[2021-08-08] MEDS: Barium Sulfate Oral (Berry) 450 ML ORAL.SUSP PO (11:44)
[2021-08-08] MEDS: iohexoL 350 MG/ML 100 ML INFUS..BTL 85 ML IV (11:44)
== END 2021-08-08 08:50 | disposition home or self-care (01) ==
LOC: HO.CT 08:49
PROVIDERS: PCP Internal Medicine; Visit Provider Surgery
DX: N32.1 Vesicointestinal fistula (principal)
CPT/HCPCS: 74177; Q9967

== ENCOUNTER 2021-08-08 17:07 | Emergency (ER) | payer MEDICAID, SELFPAY ==
[2021-08-08 17:28] VITALS: BP 111/71; BP 123/75; PULSE 88; PULSE 93; RESP 187; TEMP 37.1; O2SAT 96; O2SAT 97; BMI 35.8
--- NOTE | 2021-08-08 17:31 | ED_ITS ---
HPI - Abdominal Pain General Chief Complaint: Abdominal Pain Stated Complaint: abd pain Time Seen by Provider: 08/08/21 17:13 Source: patient and EMS Mode of arrival: EMS Limitations: no limitations History of Present Illness HPI narrative: Patient comes to the emergency room complaining of severe abdominal pain, worse in the left lower quadrant. Patient states the pain started yesterday night. This morning, was able to talk to his PCP, then the patient had a CT scan ordered as outpatient. After CT scan, patient went home. Dr. 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 There is free intraperitoneal air present indicative of ruptured viscus, most likely the sigmoid. Patient was called and asked to return immediately to the emergency room. At this time, patient complaining of 10/10 abdominal pain, nausea, no vomiting or diarrhea. Patient states that the last time he ate was almost 24 hours ago Related Data Home Medications Medication Instructions Recorded Confirmed amlodipine 10 mg tablet 1 tab PO DAILY 01/17/21 07/01/21 aspirin 81 mg tablet,delayed 1 tab PO DAILY 01/17/21 07/01/21 release bupropion HCl 150 mg tablet,12 hr 1 tab PO DAILY 01/17/21 07/01/21 sustained-release hydrochlorothiazide 25 mg tablet 1 tab PO DAILY 01/17/21 07/01/21 metoprolol succinate 50 mg 1 tab PO DAILY 01/17/21 07/01/21 tablet,extended release 24 hr trazodone 50 mg tablet 1 tab PO BEDTIME 01/17/21 07/01/21 hydromorphone 2 mg tablet 2 mg PO Q4H PRN 07/01/21 07/01/21 Previous Rx's Medication Instructions Recorded dexamethasone 4 mg tablet 4 mg PO BID #100 tab 07/10/21 (Decadron) folic acid 1 mg tablet 1 mg PO DAILY #60 tab 07/10/21 ondansetron HCl 8 mg tablet 8 mg PO Q8H #50 tab 07/10/21 Allergies Allergy/AdvReac Type Severity Reaction Status Date / Time No Known Allergies Allergy Unknown UN Verified 05/31/21 11:07 Review of Systems Review of Systems Constitutional : No Weight loss, No Fever, No Chills, No Night Sweats, No Fatigue, No Malaise ENT/Mouth : No Hearing loss, No Ear Pain, No Nasal Congestion, No Sinus Pain, No Hoarseness, No sore throat, No Rhinorrhea, No Swallowing Difficulty Eyes: No Eye Pain, No Swelling, No Redness, No Foreign Body, No Discharge, No Vision Changes Cardiovascular : No Chest Pain, No SOB, No Dyspnea on Exertion, No Orthopnea, No Edema, No Palpitations Respiratory : No Cough, No Sputum, No Wheezing, No Smoke Exposure, No Dyspnea Gastrointestinal : No Nausea, No Vomiting, No Diarrhea, No Constipation, No abdominal Pain, No Hematochezia, No Melena Genitourinary : no irregular bleeding, No Dysuria, No Urinary Frequency, No Hematuria, No Urinary Incontinence, No Urgency, No Flank Pain, No Urinary Flow Changes, No Hesitancy Musculoskeletal : No joint pain, No Myalgias, No Joint Swelling Skin : No Skin Lesions, No rash Neuro : No Weakness, No Numbness, No Paresthesias, No Loss of Consciousness, No Dizziness, No Headache Psych : No Anxiety/Panic, No Depression, No SI/HI/AH/VH, No Social Issues, Heme/Lymph: No Bruising, No Bleeding,No Lymphadenopathy Endocrine : No Polyuria, No Polydipsia, No Temperature Intolerance Physical Exam Vital Signs: Vital Signs: Last Vital Signs Temp 97.9 F 08/08/21 21:59 Pulse 95 08/08/21 21:59 Resp 20 08/08/21 21:59 BP 112/61 08/08/21 21:59 Pulse Ox 93 08/08/21 21:59 BMI result Body Mass Index 35.8 Course Course Course Narrative: 17:45 Dr. Pabon has been informed that the patient is here. All the labs are pending, patient was started on IV fluids and empiric antibiotics (Zosyn) 22:20 Dr Pabon had an elaborate conversation with the patient, anesthesia, thoracic surgery, and with Dr. Angulo. Due to the patient's recent history of lobectomy, it would be safer for the patient to have the surgery done at [facility]. Sign out given to Dr. Carranza. MDM - Abdominal Pain Lab Data Result diagrams: 08/08/21 17:37 08/08/21 17:37 Labs: Lab Results 08/08/21 08/08/21 08/08/21 Range/Units 17:37 17:37 17:37 WBC 17.8 H (4.8-10.8) X10*3/uL RBC 5.03 (4.60-5.80) X10*6/uL Hgb 14.8 (14.0-18.0) g/dl Hct 44.6 (42.0-52.0) % MCV 88.7 (80.0-98.0) fL MCH 29.4 (27.0-33.0) pg MCHC 33.2 (31.0-36.0) g/dl RDW 14.9 (11.0-16.0) % Plt Count 245 (160-400) X10*3/uL MPV 8.9 L (9.4-12.4) fL Immature Gran % (Auto) 0.6 H (0.0-0.4) % Neut % (Auto) 89.7 H (45-73) % Lymph % (Auto) 4.8 L (20-40) % [place] % (Auto) 4.8 (2-11) % Eos % (Auto) 0.0 (0-4) % Baso % (Auto) 0.1 (0-2) % Lymph # (Auto) 0.9 L (1.2-4.9) X10*3/uL [place] # (Auto) 0.9 (0.1-1.2) X10*3/uL Eos # (Auto) 0.0 (0.0-0.4) X10*3/uL Baso # (Auto) 0.0 (0.0-0.2) X10*3/uL Abs Immat Gran (auto) 0.10 H (0.00-0.03) X10*3/uL Absolute Neuts (auto) 16.0 H (2.0-8.3) x10*3/uL Absolute Nucleated RBC 0.000 (0.0-0.012) X10*3/uL Nucleated RBC % (auto) 0.0 (0.0-0.2) /100WBC PT 13.6 H (9.9-13.0) SEC INR 1.2 H (0.9-1.1) Sodium 137 (135-145) mmol/L Potassium 3.6 (3.3-5.1) mmol/L Chloride 96 (96-108) mmol/L Carbon Dioxide 29 (22-29) mmol/L Anion Gap 16 (12-20) BUN 24 H (9-16) mg/dL Creatinine 1.24 (0.5-1.4) mg/dL Estim Creat Clear Calc 88.4 Estimated GFR > 60 Random Glucose 141 H D (60-115) mg/dL Lactic Acid (0.5-2.0) mmol/L Lactic Acid F/U @ 2Hr (0.5-2.0) mmol/L Calcium 10.1 (8.4-10.2) mg/dL Total Bilirubin 3.9 H (0.0-1.0) mg/dL Direct Bilirubin 0.7 H (0.0-0.5) mg/dL AST 13 (5-37) U/L ALT 12 (0-40) U/L Alkaline Phosphatase 74 (39-117) U/L Total Protein 7.9 (6.5-8.0) g/dL Albumin 4.4 (3.5-5.0) g/dL Lipase 7 L (8-78) U/L COVID-19 ([facility]) (Negative) COVID-19 Clin Com Blood Type Antibody Screen 08/08/21 08/08/21 08/08/21 Range/Units 17:37 17:37 20:06 WBC (4.8-10.8) X10*3/uL RBC (4.60-5.80) X10*6/uL Hgb (14.0-18.0) g/dl Hct (42.0-52.0) % MCV (80.0-98.0) fL MCH (27.0-33.0) pg MCHC (31.0-36.0) g/dl RDW (11.0-16.0) % Plt Count (160-400) X10*3/uL MPV (9.4-12.4) fL Immature Gran % (Auto) (0.0-0.4) % Neut % (Auto) (45-73) % Lymph % (Auto) (20-40) % [place] % (Auto) (2-11) % Eos % (Auto) (0-4) % Baso % (Auto) (0-2) % Lymph # (Auto) (1.2-4.9) X10*3/uL [place] # (Auto) (0.1-1.2) X10*3/uL Eos # (Auto) (0.0-0.4) X10*3/uL Baso # (Auto) (0.0-0.2) X10*3/uL Abs Immat Gran (auto) (0.00-0.03) X10*3/uL Absolute Neuts (auto) (2.0-8.3) x10*3/uL Absolute Nucleated RBC (0.0-0.012) X10*3/uL Nucleated RBC % (auto) (0.0-0.2) /100WBC PT (9.9-13.0) SEC INR (0.9-1.1) Sodium (135-145) mmol/L Potassium (3.3-5.1) mmol/L Chloride (96-108) mmol/L Carbon Dioxide (22-29) mmol/L Anion Gap (12-20) BUN (9-16) mg/dL Creatinine (0.5-1.4) mg/dL Estim Creat Clear Calc Estimated GFR Random Glucose (60-115) mg/dL Lactic Acid 2.2 H* (0.5-2.0) mmol/L Lactic Acid F/U @ 2Hr 1.8 (0.5-2.0) mmol/L Calcium (8.4-10.2) mg/dL Total Bilirubin (0.0-1.0) mg/dL Direct Bilirubin (0.0-0.5) mg/dL AST (5-37) U/L ALT (0-40) U/L Alkaline Phosphatase (39-117) U/L Total Protein (6.5-8.0) g/dL Albumin (3.5-5.0) g/dL Lipase (8-78) U/L COVID-19 ([facility]) Negative (Negative) COVID-19 Clin Com See Note Blood Type Antibody Screen 08/08/21 Range/Units 20:06 WBC (4.8-10.8) X10*3/uL RBC (4.60-5.80) X10*6/uL Hgb (14.0-18.0) g/dl Hct (42.0-52.0) % MCV (80.0-98.0) fL MCH (27.0-33.0) pg MCHC (31.0-36.0) g/dl RDW (11.0-16.0) % Plt Count (160-400) X10*3/uL MPV (9.4-12.4) fL Immature Gran % (Auto) (0.0-0.4) % Neut % (Auto) (45-73) % Lymph % (Auto) (20-40) % [place] % (Auto) (2-11) % Eos % (Auto) (0-4) % Baso % (Auto) (0-2) % Lymph # (Auto) (1.2-4.9) X10*3/uL [place] # (Auto) (0.1-1.2) X10*3/uL Eos # (Auto) (0.0-0.4) X10*3/uL Baso # (Auto) (0.0-0.2) X10*3/uL Abs Immat Gran (auto) (0.00-0.03) X10*3/uL Absolute Neuts (auto) (2.0-8.3) x10*3/uL Absolute Nucleated RBC (0.0-0.012) X10*3/uL Nucleated RBC % (auto) (0.0-0.2) /100WBC PT (9.9-13.0) SEC INR (0.9-1.1) Sodium (135-145) mmol/L Potassium (3.3-5.1) mmol/L Chloride (96-108) mmol/L Carbon Dioxide (22-29) mmol/L Anion Gap (12-20) BUN (9-16) mg/dL Creatinine (0.5-1.4) mg/dL Estim Creat Clear Calc Estimated GFR Random Glucose (60-115) mg/dL Lactic Acid (0.5-2.0) mmol/L Lactic Acid F/U @ 2Hr (0.5-2.0) mmol/L Calcium (8.4-10.2) mg/dL Total Bilirubin (0.0-1.0) mg/dL Direct Bilirubin (0.0-0.5) mg/dL AST (5-37) U/L ALT (0-40) U/L Alkaline Phosphatase (39-117) U/L Total Protein (6.5-8.0) g/dL Albumin (3.5-5.0) g/dL Lipase (8-78) U/L COVID-19 ([facility]) (Negative) COVID-19 Clin Com Blood Type O Positive Antibody Screen NEGATIVE Discharge Plan Discharge Clinical Impression: Diverticulitis of colon with perforation Patient Disposition: Still a Patient Prescriptions: No Action bupropion HCl 150 mg tablet sustained-release 12 hr 1 tab PO DAILY 0RF trazodone 50 mg tablet 1 tab PO BEDTIME 0RF metoprolol succinate 50 mg tablet extended release 24 hr 1 tab PO DAILY 0RF aspirin 81 mg tablet,delayed release (DR/EC) 1 tab PO DAILY 0RF amlodipine 10 mg tablet 1 tab PO DAILY 0RF hydrochlorothiazide 25 mg tablet 1 tab PO DAILY 0RF hydromorphone 2 mg Tablet 2 mg PO Q4H PRN (Reason: Pain) 0RF folic acid 1 mg Tablet 1 mg PO DAILY Qty: 60 3RF ondansetron HCl 8 mg Tablet 8 mg PO Q8H Qty: 50 4RF dexamethasone [Decadron] 4 mg Tablet 4 mg PO BID Qty: 100 3RF Rx Instructions: Take p.o. for 3 days start night before chemo therapy, q. 3 weeks. [facility] Past Medical History Medical History (Updated 08/08/21 @ 22:18 by Arpita Moseley MD) Colitis Constipation COPD (chronic obstructive pulmonary disease) Depression Gilbert's syndrome Hypertension Nicotine dependence, cigarettes, uncomplicated Obesity (BMI 35.0-39.9 without comorbidity) Obstructive sleep apnea Surgical History (Updated 08/08/21 @ 17:47 by Arpita Moseley MD) History of colonoscopy Status post lobectomy of lung Family History Family History Father Colon cancer Mother Diabetes Social History Social History Household Members: Spouse Housing: Apartment Do you presently have visiting nurse or other home services: No Alcohol intake: never Patient Tobacco Use Status: Former Tobacco user Tobacco use type: Cigarette Cigarette Packs Per Day: 0.34 Years Smoked: 30 e-Cigarette/Vaping Use: Currently Using Second Hand Smoke Exposure: No Advance Directives: No Advance Directives Information Provided: No service: No Current occupational status: unemployed 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
[2021-08-08 17:43] LABS: MANUAL DIFF FLAG NO
[2021-08-08 17:44] LABS: Basophils Percent Auto 0.1 % (0-2); Hematocrit 44.6 % (42.0-52.0); Hemoglobin 14.8 g/dl (14.0-18.0); Imm Gran Pct Auto 0.6 % (0.0-0.4); Lymphocytes Absolute Auto 0.9 X10*3/uL (1.2-4.9); Lymphocytes Percent Auto 4.8 % (20-40); Mean Corpuscular HGB Conc 33.2 g/dl (31.0-36.0); Mean Corpuscular Hemoglobin 29.4 pg (27.0-33.0); Mean Corpuscular Volume 88.7 fL (80.0-98.0); Mean Platelet Volume 8.9 fL (9.4-12.4); Monocytes Absolute Auto 0.9 X10*3/uL (0.1-1.2); Monocytes Percent Auto 4.8 % (2-11); Neutrophils Percent Auto 89.7 % (45-73); Platelet Count 245 X10*3/uL (160-400); Red Blood Count 5.03 X10*6/uL (4.60-5.80); Red Cell Distribution Width 14.9 % (11.0-16.0); White Blood Count 17.8 X10*3/uL (4.8-10.8)
[2021-08-08] MEDS: 0.9 % Sodium Chloride 1,000 ML 999 ML IVCONT (17:46)
[2021-08-08] MEDS: Piperacillin Sodium/Tazobactam 3.375 GM in 0.9 % Sodium Chloride 50 ML IV (17:46)
[2021-08-08 17:47] VITALS: RESP 16
[2021-08-08] MEDS: ondansetron HCL 4 MG/2 ML VIAL IVPUSH (17:47)
[2021-08-08] MEDS: HYDROmorphone HCl 1 MG/ML SYRINGE IVPUSH ×2 (17:47→21:10)
[2021-08-08 17:51] LABS: INTERNATIONAL NORM RATIO 1.2 (0.9-1.1); Prothrombin Time 13.6 SEC (9.9-13.0)
[2021-08-08 18:02] LABS: Lactic Acid 2.2 mmol/L (0.5-2.0)
[2021-08-08 18:03] LABS: Alanine Aminotransferase 12 U/L (0-40); Albumin Level 4.4 g/dL (3.5-5.0); Alkaline Phosphatase 74 U/L (39-117); Anion Gap 16 (12-20); Aspartate Amino Transferase 13 U/L (5-37); Bilirubin Direct 0.7 mg/dL (0.0-0.5); Bilirubin Total 3.9 mg/dL (0.0-1.0); Blood Urea Nitrogen 24 mg/dL (9-16); Calcium 10.1 mg/dL (8.4-10.2); Carbon Dioxide 29 mmol/L (22-29); Chloride 96 mmol/L (96-108); Creatinine Clr Calc Pharmacy 88.4; Estimated Glomerular Filt Rate > 60; Glucose Random 141 mg/dL (60-115); Lipase 7 U/L (8-78); Potassium 3.6 mmol/L (3.3-5.1); Sodium 137 mmol/L (135-145); Total Protein 7.9 g/dL (6.5-8.0)
[2021-08-08 18:12] LABS: COVID-19 Test Negative (Negative)
[2021-08-08 19:21] VITALS: BP 102/51; PULSE 82; RESP 14; O2SAT 93
[2021-08-08 19:41] LABS: Reflex Lactate? Lactic Acid Added
[2021-08-08 20:23] LABS: ~Lactic Acid-LAB USE ONLY 1.8 mmol/L (0.5-2.0)
[2021-08-08 21:10] VITALS: RESP 14
[2021-08-08 21:59] VITALS: BP 112/61; PULSE 95; RESP 20; TEMP 36.6; O2SAT 93
--- NOTE | 2021-08-08 22:36 | PM.PNGS ---
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 Post op dealing with afib and still shortness of breath issues. plan was to get colectomy and then start with chemo to finish vini cancer treatment. pt saw Dr Johnston in the office once before and plan was to get a f.u CT scan to show the disease status of colon - he has had sever Cscope/sigmoidscope with GI here last year confirming this to be diverticulisitis and not malignancy. Pt came in today for the CT scan as pain got worse and CT showing free air and fistula and he was told to come into the ER for urgent surgery so he is here. Pt has localized peritonitis right lower quadrant>left lower quadrant, fair breath sounds bilaterally with some minor distress with moving and talking. Physical Exam Vital Signs: Vital Signs: Last Vital Signs Temp 97.9 F 08/08/21 21:59 Pulse 95 08/08/21 21:59 Resp 20 08/08/21 21:59 BP 112/61 08/08/21 21:59 Pulse Ox 93 08/08/21 21:59 BMI result Body Mass Index 35.8 Chest: Other: left sided thorax surgery sites well healed Chest palpation & inspection: normal inspection of the chest Resp: Effort & Inspection: able to speak in complete sentences and respiratory distress (vry mild - worsens with moving nd talking a lot) Cardio: Rate: regular rate Rhythm: regular rhythm GI: Other: abdo distended, tender to palpation with localized peritonitis on left lower quadrant > right lower area. > than upper abdomen Objective Data Labs CBC & Chem 7: 08/08/21 17:37 08/08/21 17:37 Labs: Laboratory Results - last 24 hr 08/08/21 08/08/21 08/08/21 17:37 17:37 17:37 MCV 88.7 MCH 29.4 MCHC 33.2 RDW 14.9 Plt Count 245 MPV 8.9 L Immature Gran % (Auto) 0.6 H Neut % (Auto) 89.7 H Lymph % (Auto) 4.8 L [place] % (Auto) 4.8 Eos % (Auto) 0.0 Baso % (Auto) 0.1 Lymph # (Auto) 0.9 L [place] # (Auto) 0.9 Eos # (Auto) 0.0 Baso # (Auto) 0.0 Abs Immat Gran (auto) 0.10 H Absolute Neuts (auto) 16.0 H Absolute Nucleated RBC 0.000 Nucleated RBC % (auto) 0.0 PT 13.6 H INR 1.2 H Anion Gap 16 Estim Creat Clear Calc 88.4 Estimated GFR > 60 Random Glucose 141 H D Lactic Acid Lactic Acid F/U @ 2Hr Calcium 10.1 Total Bilirubin 3.9 H Direct Bilirubin 0.7 H AST 13 ALT 12 Alkaline Phosphatase 74 Total Protein 7.9 Albumin 4.4 Lipase 7 L COVID-19 ([facility]) COVID-[facility] Com Blood Type Antibody Screen 08/08/21 08/08/21 08/08/21 17:37 17:37 20:06 MCV MCH MCHC RDW Plt Count MPV Immature Gran % (Auto) Neut % (Auto) Lymph % (Auto) [place] % (Auto) Eos % (Auto) Baso % (Auto) Lymph # (Auto) [place] # (Auto) Eos # (Auto) Baso # (Auto) Abs Immat Gran (auto) Absolute Neuts (auto) Absolute Nucleated RBC Nucleated RBC % (auto) PT INR Anion Gap Estim Creat Clear Calc Estimated GFR Random Glucose Lactic Acid 2.2 H* Lactic Acid F/U @ 2Hr 1.8 Calcium Total Bilirubin Direct Bilirubin AST ALT Alkaline Phosphatase Total Protein Albumin Lipase COVID-19 ([facility]) Negative COVID-JAYS See Note Blood Type Antibody Screen 08/08/21 20:06 MCV MCH MCHC RDW Plt Count MPV Immature Gran % (Auto) Neut % (Auto) Lymph % (Auto) [place] % (Auto) Eos % (Auto) Baso % (Auto) Lymph # (Auto) [place] # (Auto) Eos # (Auto) Baso # (Auto) Abs Immat Gran (auto) Absolute Neuts (auto) Absolute Nucleated RBC Nucleated RBC % (auto) PT INR Anion Gap Estim Creat Clear Calc Estimated GFR Random Glucose Lactic Acid Lactic Acid F/U @ 2Hr Calcium Total Bilirubin Direct Bilirubin AST ALT Alkaline Phosphatase Total Protein Albumin Lipase COVID-19 ([facility]) COVID-Switch[facility] Com Blood Type O Positive Antibody Screen NEGATIVE ABG Interpretation: Signed Patient: Jose Arenas Sr MR#: [id number] : 1965 Acct:[id number] Age/Sex: 55 / M ADM Date: 08/08/21 Loc: HO.CT Attending Dr: Wilberto Johnston MD Ordering Physician: Wilberto Johnston MD Date of Service: 08/08/21 Procedure(s): CT abdomen pelvis w con Accession Number(s): [id number] cc: Wilberto Johnston MD~ EXAMINATION: CT ABDOMEN AND PELVIS WITH CONTRAST? CLINICAL INFORMATION: Vesicointestinal fistula.? COMPARISON: MRI abdomen/pelvis 04/15/2021, CT abdomen and pelvis 01/16/2021.? TECHNIQUE: Multidetector volumetric images were obtained from the superior aspect of the liver through the pubic symphysis following administration 85 mL of Omnipaque 350 intravenous contrast. Sagittal and coronal reformatted images were obtained on the technologist's workstation. Oral contrast: No. This CT examination was performed using dose optimization techniques as appropriate, variously including the following: *Automated exposure control *Adjustment of mA and/or kV according to patient size (this includes techniques or standardized protocols for targeted exams where dose is matched to indication/reason for exam; i.e. extremities or head) *Use of iterative reconstruction technique DLP: 995 mGy-cm FINDINGS: LUNG BASES: Bibasilar atelectasis is present.? LIVER, GALLBLADDER, AND BILIARY TREE: The liver is normal in size, shape, and attenuation. No focal hepatic lesion or biliary ductal dilatation is present. The gallbladder is unremarkable with no evidence of radiopaque gallstones, gallbladder wall thickening, or obvious pericholecystic inflammatory changes.? PANCREAS: Unremarkable.? SPLEEN: Unremarkable.? ADRENAL GLANDS: Unremarkable.? KIDNEYS AND URETERS: The kidneys are normal in size, shape, and attenuation. Calcification in the left kidney, most likely renovascular (3:40). No hydronephrosis, hydroureter, or calculi are seen. No perinephric stranding. ? PERITONEUM: Free intraperitoneal air is present. GASTROINTESTINAL TRACT AND BLADDER: A small hiatal hernia is present. There is marked thickening of the sigmoid colon present which abuts the bladder. Marked inflammatory changes are present in the surrounding fat. Extensive diverticular changes are present. Air is present within the bladder suspicious for a colovesical fistula. The fistulous connection itself is not visualized but there is definitely a lack of a fat plane between the sigmoid and the bladder at multiple levels (4:645). As stated above, free intraperitoneal air is present and a perforated viscus appears to be present, most likely sigmoid colon. Differential diagnosis would include diverticulitis versus sigmoid carcinoma. The remainder of the colon is unremarkable. There is marked dilatation of loops of small bowel in the left abdomen up to 4.6 cm in diameter. The transition point seems to be in the area of the marked sigmoid thickening and inflammation. ? ABDOMINAL WALL: No significant hernia is appreciated.? LYMPH NODES: There is a prominent aortocaval lymph node measuring 1.7 cm (3:33) with some other surrounding smaller lymph nodes. No retroperitoneal lymphadenopathy VASCULAR: No portal venous gas is seen. Atherosclerotic change is present in the aorta and its branches without aneurysm or significant stenosis seen. PELVIC VISCERA: Prostate and seminal vesicles appear normal. No ascites is seen. OSSEOUS STRUCTURES: Mild degenerative changes. No evidence of osseous metastatic disease.? 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 There is free intraperitoneal air present indicative of ruptured viscus, most likely the sigmoid. ? This critical result was discussed with Dr. Guerra at 2:45 PM on the day of the exam and it was ascertained that the content and urgency of the report was understood at the time of direct communication. ? Fleischner guidelines were followed. Dictated By: BRIAN ALBRECHT MD Signed By: <Electronically signed by BRIAN ALBRECHT MD in OV> 08/08/21 1521 Procedures Date of Service Date of Service: 08/08/21 Progress Note: A&P Assessment and plan (1) Diverticulitis of colon with perforation: Status: Acute (2) COPD (chronic obstructive pulmonary disease): Status: Acute (3) Colovesical fistula: Status: Acute Plan 55 year old male about 2 months s/p left upper lobectomy for cancer doing ok from this - afib not anticoagulated and shortness of breath with decreased respiratory reserve known diverticulitis -approx 12 cm segment involved with colovesicula fistula significant phlegmon and also with now free air in the sigmoid area discussed case with anesthesia and medical team and hyperion administrator and pts thoracic surgeon Dr Chavez at great lengths and agree pt would be served best with multidisciplinary team of urology and icu and thoracic surgery and colorectal and will attempt transfer. Pt already recent surgery pt at [facility]. here received ivf resus and iv Zosyn lactic acid f.u has normalized pt and under stand and agree with this plan Time Spent With Patient Time: Total time spent is greater than 50% in coordination of care (as documented) at patient's floor/unit and/or counseling patient: Time with patient: Greater than 35 minutes Quality Stroke Does the patient have a stroke diagnosis?: No VTE Prior VTE?: No VTE Risk Level:: Surgical - low VTE Device Contraindication: Treatment Not Indicated VTE Drug Contraindication: Treatment Not Indicated
[2021-08-08] MEDS: 0.9 % Sodium Chloride 500 ML 250 ML IV (22:46)
[2021-08-08 23:23] VITALS: BP 119/67; PULSE 86; RESP 20; TEMP 37.7; O2SAT 94
== END 2021-08-09 | disposition short-term general hospital (02) ==
PROVIDERS: Emergency Provider Emergency Medicine
DX: K57.20 Diverticulitis of large intestine with perforation and abscess without bleeding (principal); R10.32 Left lower quadrant pain; Z20.822 Contact with and (suspected) exposure to COVID-19; N32.1 Vesicointestinal fistula; J44.9 Chronic obstructive pulmonary disease, unspecified; E66.9 Obesity, unspecified; F17.200 Nicotine dependence, unspecified, uncomplicated
CPT/HCPCS: 36415; 74177; 80048; 80076; 83605; 83690; 85025; 85610; 86850; 86900; 86901; 87040; 87635; 96361; 96374; 96375; 96376; 99285; J1170; J2405; J2543; Q9967

== ENCOUNTER 2021-11-18 11:56 | Outpatient (REF) | payer MEDICAID, SELFPAY ==
--- NOTE | ~2021-11-18 | PE_ITS ---
EXAMINATION: Fluorine-18 FDG PET/CT Scan CLINICAL INDICATION: Subsequent treatment management. Non-small cell lung carcinoma. PROCEDURE: 56 minutes following the intravenous administration of 19.8 mCi of fluorine 18 FDG, images from the base of the skull to the mid thighs were obtained using a combined PET/CT scanner with CT scan based attenuation correction. No oral contrast was administered. No intravenous contrast was administered. Transverse, coronal, sagittal, and volume reconstruction projections were obtained. The patient's blood glucose as determined by a finger stick, was 87 mg/dl immediately prior to injection. Total CT exam dose-length product 1210.52 mGy-cm * These CT images were obtained using dose optimization techniques as appropriate, variously including the following: Automated exposure control * Adjustment of mA and/or kV according to patient size (this includes techniques or standardized protocols for targeted exams where dose is matched to indication/reason for exam; i.e. extremities or head) * Use of iterative reconstruction technique COMPARISON: The prior PET CT scan dated 04/08/2021 is available for comparison. CT scan of the abdomen and pelvis dated 08/08/2021 is available for comparison. FINDINGS: (Slice numbers described in this report are numbered superiorly to inferiorly with slice #1 in the head) NECK AND VISUALIZED HEAD: No foci of abnormal FDG activity are noted. The distribution of FDG activity is physiological. There is no cervical lymphadenopathy. Some mucosal thickening is present in the maxillary sinuses bilaterally. THORAX: The patient is status post right upper lobectomy, new since the prior 04/08/[address] scan. An intensely FDG avid right upper lobe nodule visualized on that prior PET CT scan has been resected and postoperative changes are evident. There is mildly increased FDG activity associated with some pleural fluid anterolaterally in the interlobar fissure, SUVmax 3.1, slice 70/311. There is atelectasis or scarring that extends inferomedially from this fluid collection into the right suprahilar region and this does not show associated abnormal FDG activity. There are weakly FDG avid groundglass opacities present peripherally in the lateral and posterior aspects of the right lower lobe but no additional pulmonary nodules are visualized. There is an FDG avid lower right paratracheal lymph node, SUVmax 6.1, slice 77/311 measuring 1.9 x 1.1 cm in largest transverse dimensions. This was not present on 04/08/2021. There are additional small subcentimeter mediastinal lymph nodes present, and all of these are too small to be characterized on the FDG PET images in the superior similar in size to the 04/08/[address] scan. No enlarged or FDG avid additional mediastinal, supraclavicular, or axillary lymph nodes are present. Other than the previously described likely loculated fluid in the anterolateral aspect of the interlobar fissure, there is no additional pleural fluid or pericardial fluid, or pneumothorax. ABDOMEN AND PELVIS: There is mild FDG activity throughout the gastrointestinal tract without a suspicious focal component. Postsurgical changes with several suture lines are present in the pelvis and in the right lower quadrant colostomy is in place and in addition there is mild FDG activity associated with a midline anterior surgical incision, both new since the 08/08/[address] scan. There is some diverticulosis present in the residual colon, without evidence of diverticulitis. There are no additional foci of abnormal FDG activity present in the abdomen or pelvis. The liver, gallbladder, spleen, kidneys, adrenal glands, and pancreas appear unremarkable. There is no retroperitoneal, mesenteric, pelvic or inguinal lymphadenopathy. Bilateral fat-containing inguinal hernias are present. The pelvic organs are otherwise unremarkable. MUSCULOSKELETAL: There is minimally increased FDG activity in the shoulders bilaterally, likely arthritic. No other foci of abnormal FDG activity are present in the osseous structures. There are degenerative changes in the spine but no suspicious sclerotic or lytic lesions are visualized. VASCULAR: Scattered vascular calcifications are present. PET/PET CT fusion skull to thigh IMPRESSION: 1. There is a new FDG avid right lower paratracheal lymph node present, strongly suspicious for metastatic malignant recurrence. 2. Postsurgical changes from a right upper lobectomy are present, and there is some mild FDG activity in the anterolateral pleural region of the residual right middle lobe and some associated and likely loculated pleural fluid is present abutting this region. This is nonspecific and may be inflammatory or malignant in etiology. Correlation with an intravenous contrast contrast enhanced CT scan of the chest is recommended to better characterize these findings, if clinically indicated. 3. Postsurgical changes in the pelvis including partial sigmoid colon resection and placement of a right lower quadrant colostomy since the prior PET CT scan dated 04/08/2021 and the more recent 08/08/[address] scan. There are no abnormalities now present suspicious for malignancy or active infection in the abdomen or pelvis. 4. No additional abnormalities suspicious for metastatic or other malignant lesions are noted.
== END 2021-11-18 11:57 | disposition home or self-care (01) ==
LOC: HO.PET 11:56
PROVIDERS: Visit Provider Internal Medicine Medical Oncology
DX: Z13.89 Encounter for screening for other disorder (principal)

== ENCOUNTER 2021-12-04 12:53 | Outpatient (REF) | payer MEDICAID, SELFPAY ==
--- NOTE | ~2021-12-04 | CT_ITS ---
EXAMINATION: CT CHEST WITHOUT CONTRAST CLINICAL INFORMATION: Pulmonary cavitary lesion COMPARISON: Previous head CT most recent October [address] February 2021 TECHNIQUE: Multidetector volumetric CT imaging of the chest was done. Axial MIP volume rendering provided. Sagittal and coronal reformatted images were obtained. This CT examination was performed using dose optimization techniques as appropriate, variously including the following: *Automated exposure control *Adjustment of mA and/or kV according to patient size (this includes techniques or standardized protocols for targeted exams where dose is matched to indication/reason for exam; i.e. extremities or head) *Use of iterative reconstruction technique DLP: 238 mGy-cm FINDINGS: LUNGS: There is evidence of emphysema. There are postsurgical changes from right upper lobe lobectomy. There are increased peripheral interstitial markings questionable for mild interstitial lung disease. This is greatest at the lung bases. There are are cystic and reticular changes seen in the left upper lobe. This does not appear appreciably changed There are numerous small groundglass attenuation peribronchial nodules and areas of increased peribronchial attenuation. This is greatest in the left upper lobe. This probably represents an infectious or inflammatory process/airways disease. There is some atelectasis or small scarring in the right middle lobe. This is stable. No endobronchial or endotracheal lesion is seen. MEDIASTINUM: There are prominent mediastinal lymph nodes. Largest lymph nodes are a vascular space lymph node measuring 9 mm in short axis in between the right radiocephalic artery SVC, right paratracheal lymph node measuring 1.2 cm in short axis and AP window lymph node measuring 7 mm in short axis and subcarinal lymph node measuring 1.1 cm in short axis. These are similar to previous exam. There is coronary artery calcification. There is no pericardial effusion. The thoracic aorta is upper normal in size. The visualized thyroid gland is unremarkable. PLEURA: There is pleural thickening or loculated fluid in the right lung apex. Unchanged. No other pleural effusion or pleural thickening is seen. AXILLA: There is shotty bilateral axillary lymphadenopathy. No enlarged axillary lymph nodes are seen. UPPER ABDOMEN: There are several small calcifications in the pancreas. There are postsurgical changes to the upper abdominal wall. OSSEOUS STRUCTURES: There are degenerative changes of the spine. CT/CT chest wo con IMPRESSION: Stable postsurgical changes from right upper lobe lobectomy. Mild emphysema. Mild interstitial lung disease. More focal areas of cystic and reticular change in the left upper lobe that are stable. Scattered small semisolid peribronchial nodules and increased peribronchial attenuation greatest in the left upper lobe probably representing airways disease. Chronic scarring or subsegmental atelectasis in the right middle lobe adjacent to the surgical suture line. Stable loculated pleural fluid or pleural thickening at the right lung apex. Stable prominent mediastinal lymph nodes. Coronary artery calcification. Fleischner guidelines were followed.
== END 2021-12-04 12:54 | disposition home or self-care (01) ==
LOC: HO.CT 12:53
PROVIDERS: PCP Internal Medicine; Visit Provider Surgery
DX: J98.4 Other disorders of lung (principal)
CPT/HCPCS: 71250

== ENCOUNTER → 2021-12-12 09:58 | Outpatient (BNVA) | payer MEDICAID, SELFPAY | PROVIDERS: PCP Internal Medicine; Visit Provider Surgery | DX: R94.2 Abnormal results of pulmonary function studies (principal); C34.90 Malignant neoplasm of unspecified part of unspecified bronchus or lung | CPT/HCPCS: 99212 ==

== ENCOUNTER 2021-12-22 08:19 | Day surgery (SDC) | payer MEDICAID, SELFPAY ==
--- NOTE | 2021-12-19 08:30 | P.CONAN_ITS ---
Documented by User: Lisa Regalado NP 12/19/21 08:38 HPI - Anesthesia Eval Consult details Narrative: 56yo M for Endoscopic Bronchial Ultrasound s/p RUL-ectomy 05/2021 s/p bowel resection, ileostomy PMFSH Active Problems Active Problems: All Active Problems (Updated 12/12/21 @ 12:20 by Lisa Lynn MD) Abnormal PET scan of lung (Acute) Non-small cell lung cancer (Acute ~2020) Diverticulitis large intestine (Acute) Diverticulosis (Acute) Pulmonary cavitary lesion (Acute) Colovesical fistula (Acute) UTI (urinary tract infection) (Acute) COPD (chronic obstructive pulmonary disease) (Acute) Nicotine dependence, cigarettes, uncomplicated (Acute) Gilbert's syndrome (Acute) Obesity (BMI 35.0-39.9 without comorbidity) (Acute) Past Medical History Medical History Afib Colitis Constipation Depression Diverticula of intestine Hypertension Obstructive sleep apnea Family History Family History Father Colon cancer Mother Diabetes Surgical History Surgical History History of colonoscopy History of ileostomy (~2021) History of lobectomy of lung (~2020) Social History Social History Household Members: Spouse Housing: Apartment Are you a primary inspector health care facilities to a significant other at home: No Do you presently have visiting nurse or other home services: No Alcohol intake: never Patient Tobacco Use Status: Former Tobacco user Tobacco use type: Cigarette Cigarette Packs Per Day: 0.34 Years Smoked: 30 e-Cigarette/Vaping Use: Currently Using Second Hand Smoke Exposure: No Are you DNR?: No Advance Directives: No Advance Directives Information Provided: Yes service: No Current occupational status: employed Current occupation: Works in [employer] department at [employer] Meds Allergies Allergy/AdvReac Type Severity Reaction Status Date / Time No Known Allergies Allergy Unknown UN Verified 12/12/21 10:30 Home Medications Medication Instructions Recorded Confirmed Last Taken Type amlodipine 10 mg tablet 5 mg PO DAILY 01/17/21 12/12/21 01/15/21 History bupropion HCl 150 mg tablet,12 hr 1 tab PO DAILY 01/17/21 12/12/21 01/15/21 History sustained-release hydrochlorothiazide 25 mg tablet 1 tab PO DAILY 01/17/21 12/12/21 01/15/21 History metoprolol succinate 50 mg 1 tab PO DAILY 01/17/21 12/12/21 01/15/21 History tablet,extended release 24 hr trazodone 50 mg tablet 1 tab PO BEDTIME 01/17/21 12/12/21 01/15/21 History Exam Exam Date and Time: December 19, 2021 0830 Pertinent Lab Results Pertinent Lab Results: Laboratory Tests 12/18/21 12/18/21 08:43 08:43 WBC 6.6 Hgb 16.6 Hct 46.2 Plt Count 285 D Sodium 134 L Potassium 3.3 D Chloride 98 Carbon Dioxide 21 L BUN 58 H D Creatinine 2.28 H Narrative Narrative: ECHO 01/2021 Conclusions: -? Essentially normal study? Findings Left Ventricle Normal left ventricular size, thickness, and systolic function. The visually estimated ejection fraction is between 60-65%.? Spectral Doppler is indicative of a normal filling pattern. PFT 04/2021 CONCLUSION:? Normal pulmonary function test.? There is no evidence of obstructive or restrictive pulmonary disorder. Assessment and Plan Assessment Anesthesia Assessment: Chart Reviewed Documented by User: Jessa Alanis MD 12/22/21 10:38 PMFSH Active Problems Active Problems: All Active Problems (Updated 12/12/21 @ 12:20 by Lisa Lynn MD) Abnormal PET scan of lung -PET scan was done on 11/18/2021 - right paratracheal lymph node that is PET avid and borderline enlarged. For EBUS Non-small cell lung cancer -right upper lobectomy and mediastinal lymp hadenectomy on 06/02/2021. On chemo-cisplatin alimta. Last session 2i/2 weeks ago. Next therapy will be radiation followed by another session of chemo. States no decadron for several weeks-ran out Diverticulitis large intestine (Acute) Diverticulosis (Acute) Pulmonary cavitary lesion (Acute) Colovesical fistula (Acute) UTI (urinary tract infection) (Acute) COPD (chronic obstructive pulmonary disease) (Acute) Nicotine dependence, cigarettes, uncomplicated (Acute) Gilbert's syndrome (Acute) Obesity (BMI 35.0-39.9 without comorbidity) (Acute) Afib- States his dose of metoprolol was just decreased. Rate intermittently up to 138 for high JAMIE -severe per review of records. Patient states using CPAP as needed Stoma in place for diverticulitis and colovesical fistula COPD Past Medical History Medical History Afib Colitis Constipation Depression Diverticula of intestine Hypertension Obstructive sleep apnea Family History Family History Father Colon cancer Mother Diabetes Family history of problems with anesthesia: No Surgical History Surgical History History of colonoscopy History of ileostomy (~2021) History of lobectomy of lung (~2020) History of Problems with Anesthesia: No Social History Social History Household Members: Spouse Housing: Apartment Are you a primary inspector health care facilities to a significant other at home: No Do you presently have visiting nurse or other home services: No Alcohol intake: never Patient Tobacco Use Status: Former Tobacco user Tobacco use type: Cigarette Cigarette Packs Per Day: 0.34 Years Smoked: 30 e-Cigarette/Vaping Use: Currently Using Second Hand Smoke Exposure: No Are you DNR?: No Advance Directives: No Advance Directives Information Provided: Yes service: No Current occupational status: employed Current occupation: Works in [employer] department at [employer] Meds Allergies Allergy/AdvReac Type Severity Reaction Status Date / Time No Known Allergies Allergy Unknown UN Verified 12/12/21 10:30 Home Medications Medication Instructions Recorded Confirmed Last Taken Type amlodipine 10 mg tablet 5 mg PO DAILY 01/17/21 12/12/21 01/15/21 History bupropion HCl 150 mg tablet,12 hr 1 tab PO DAILY 01/17/21 12/12/21 01/15/21 History sustained-release hydrochlorothiazide 25 mg tablet 1 tab PO DAILY 01/17/21 12/12/21 01/15/21 History metoprolol succinate 50 mg 1 tab PO DAILY 01/17/21 12/12/21 01/15/21 History tablet,extended release 24 hr trazodone 50 mg tablet 1 tab PO BEDTIME 01/17/21 12/12/21 01/15/21 History Exam Height,Weight and Vital Signs: Height 5 ft 8 in Weight 109.5 kg Vital Signs Temp Pulse Resp BP Pulse Ox 12/22/21 08:21 96.8 F 102 H 18 142/100 H 95 Airway Mallampati Class: II TM Dist: >3cm (Slightly receding chin) Neck ROM: Full Loose/Missing/Broken Teeth: Yes (Some missing, some broken-top left , bottom right visible) Heart: Irregularly irregular Lungs: CTAB Assessment and Plan Assessment Anesthesia Assessment: Anesthesia Plan Discussed Final Anesthetic Review Family History of Problems with Anesthesia: No History of Problems with Anesthesia: No NPO: Yes ASA Class: III Final Preanesthetic Review: No Changes in Pt Med Stat, Meds/Allgs Chart Reviewed, Consent Obtained/Reviewed and Anes Risks/Benef Reviewed Patient Risk: Intermediate Procedure Risk: Intermediate Assessment/Block/Sedation in SS: Assess/Block/Sedation-SS Anesthetic Plan Anesthetic Plan: GA Disposition: Standard PACU
[2021-12-22] VITALS (8 sets, daily range): BP systolic 90–142; BP diastolic 51–100; PULSE 82–108; RESP 18–20; TEMP 36–36.7; O2SAT 95–100; BMI 36.7
--- NOTE | ~2021-12-22 | XR_ITS ---
EXAMINATION: XR CHEST CLINICAL INFORMATION: Post bronchoscopy COMPARISON: CT chest 12/04/2021 TECHNIQUE: Frontal view of the chest was obtained. FINDINGS: There is right upper lobe partial lobectomy with postsurgical changes in lingula sutures. The lungs are expanded and clear. No pleural effusion or pneumothorax seen. Heart size is borderline enlarged. Pulmonary vascularity is normal. No gross bony abnormality seen. There is a right supra clavicular neck subcutaneous emphysema. There is streaky air seen in the right superior mediastinum suspicious for pneumomediastinum XR/XR chest 1V IMPRESSION: Postsurgical changes right upper lobe likely lobectomy. No acute process seen. Right supra clavicular neck emphysema. Suspect pneumomediastinum in right superior mediastinum. The subcutaneous emphysema and suspected pneumomediastinum is new since the previous CT chest 12/04/2021.
[2021-12-22] MEDS: Lactated Ringers 1,000 ML 100 ML IVCONT (08:53)
[2021-12-22 08:58] LABS: Blood Urea Nitrogen 29 mg/dL (9-16); Creatinine Clr Calc Pharmacy 75.3; Estimated Glomerular Filt Rate 56
--- NOTE | 2021-12-22 09:04 | MHC.SHP ---
Pre-Procedural Eval Section A Date of Service: 12/22/21 The patient is an INPATIENT: No Changes since office visit: No Cold of Flu in the past 2 weeks, No New Medical Problems, No Changes in Medication and No Patient answered all questions The History & Physical has been completed within 30 days and I have reviewed it.: No Section B Chief Complaint: Generalized enlarged lymph nodes Details of Present Illness: 56-year-old male former smoker who is status post Davinci right upper lobe wedge with completion right upper lobectomy and mediastinal lymphadenectomy on 06/02/2021 for what turned out to be a stage II (PT 2 a N1) lung cancer. Postoperatively he did quite well and plan was for adjuvant chemotherapy however he had a significant episode of diverticulitis and colovesicular fistula with surgery for that and chemotherapy was delayed any started just a few weeks ago. A PET scan was done on 11/18/2021 which I reviewed showing no distant increased uptake however there is a right paratracheal lymph node that is PET avid and borderline enlarged. Relevant Family History (Specify if Yes): No Relevant Social History: None Present Medications: see Short Stay Collaborative assessment Medical History: Significant History History of Previous Operations: Relevant previous surgery/procedure and date(s) Allergies: Allergies Allergy/AdvReac Type Severity Reaction Status Date / Time No Known Allergies Allergy Unknown UN Verified 12/12/21 10:30 Review of Systems Sugical H&P ROS: Negative: Constitution, Cardiovascular, Respiratory, Neurological, Psychiatric, Hem-Onc, Allergic/Immunologic, Musculoskeletal and Integumentary and Yes, Specify: Gastrointestinal (stoma) Exam Surgical H&P Exam: Normal: HEENT, Normal: Heart, Normal: Lungs, Normal: Extremities, Normal: Skin and Normal: Neurological Plan Diagnosis/Plan: Change (+paratracheal Lymphnode with FDG activity plan for EBUS) I have reviewed the history and physical and performed a pertinent physical examination on my patient. No changes have occurred unless specified.
--- NOTE | 2021-12-23 03:14 | OP_ITS ---
SURGEON: Ruperto Wallis MD PREOPERATIVE DIAGNOSIS: Lymphadenopathy. POSTOPERATIVE DIAGNOSIS: Lymphadenopathy. PROCEDURE PERFORMED: ESTIMATED BLOOD LOSS: COMPLICATIONS: Suspect pneumomediastinum and subcutaneous air based on the x-ray. ANESTHESIA: LMA. ASSISTANTS: SPECIMENS: INTERPRETATION: Successful transbronchial needle aspiration via EBUS. Sampling of the 4R lymph node that was positive on PET scan. We will have him undergo serial chest x-rays to follow up with the findings on the x-ray. DESCRIPTION OF PROCEDURE: After the patient was adequately sedated and LMA in place, a flexible digital bronchoscope with endobronchial ultrasound bronchoscopy/EBUS was inserted over the LMA to the level of the larynx. Vocal cords moved symmetrically to the midline. After instilling lidocaine, the bronchoscope was then passed the vocal cords to the level of trachea. Using ultrasound guidance, the different lymph node stations were assessed. There was a small about 6-8 mm subcarinal lymph node and a larger elongated right paratracheal lymph node measuring 2 x 3 cm. This lymph node was deep within the mediastinum. This was the lymph node that was avid on the PET scan. Using ultrasound guidance, a transbronchial needle aspiration was attempted station 4R. The needle was inserted up to 3 cm depth and still not reaching the target. Therefore, the safety was removed, and the needle was then placed further in about 4 cm again into the target. Samples were collected from that right paratracheal lymph node. Pathology present demonstrated positive lymphocytes consistent with proper sampling. Five passes were done. The first 2 passes demonstrated lymphocytes and the other passes were placed right into cytologic ridge material. This was a difficult location due to the depth of the location of the lymph node. The bronchoscope was then removed. No significant bleeding noted and patient was able to be weaned off oxygen pad in the PACU. The patient felt well without any chest pain. Postop x-ray, there was a suspicion of some subcutaneous air, pneumomediastinum. ESTIMATION OF BLOOD: 0. Ruperto Wallis MD MR/MODL / [id number]
== END 2021-12-22 12:50 | disposition home or self-care (01) ==
PROVIDERS: Nurse Practitioner; PCP Family Medicine; Visit Provider Hospitalist
PROC: (CPT 31652; principal; 2021-12-22 09:00)
DX: C77.9 Secondary and unspecified malignant neoplasm of lymph node, unspecified (principal); C34.11 Malignant neoplasm of upper lobe, right bronchus or lung; Z90.2 Acquired absence of lung [part of]; G47.33 Obstructive sleep apnea (adult) (pediatric); I10 Essential (primary) hypertension; Z87.891 Personal history of nicotine dependence; Z93.2 Ileostomy status
CPT/HCPCS: 31652; 36415; 71045; 82565; 84520; 87071; 87077; 87185; 87205; 88172; 88173; 88177; 88305; J0171; J2405; J3010

== ENCOUNTER 2021-12-23 10:23 | Outpatient (REF) | payer MEDICAID, SELFPAY ==
--- NOTE | ~2021-12-23 | XR_ITS ---
EXAMINATION: XR CHEST CLINICAL INFORMATION: Follow-up pneumonia mediastinum post bronchoscopy COMPARISON: Previous chest x-ray from yesterday TECHNIQUE: 2 views of the chest were obtained. FINDINGS: There are postsurgical changes following right upper lobe lobectomy. There is pneumomediastinum and subcutaneous emphysema in the right neck that does not appear appreciably changed. There is a new subcutaneous emphysema seen in the left neck. There is question of small pneumothorax at the right lung base. The lungs are clear. There is slight elevation of the right hemidiaphragm. The cardiac and mediastinal contours are stable. There are degenerative changes of the spine. XR/XR chest 2V IMPRESSION: Pneumomediastinum and subcutaneous emphysema in the neck, question slightly increased on the left compared to yesterday's exam. Question small pneumothorax at the right lung base. This could be better evaluated with chest CT scan. Findings were discussed with Dr. Wallis in person on 12/23/2021 at 11:20 AM.
== END 2021-12-23 10:24 | disposition home or self-care (01) ==
LOC: HO.XRAY 10:23
PROVIDERS: PCP Internal Medicine; Visit Provider Hospitalist
DX: J98.2 Interstitial emphysema (principal)
CPT/HCPCS: 71046

== ENCOUNTER 2021-12-23 11:13 | Observation (INO) | payer MEDICAID, SELFPAY ==
--- NOTE | ~2021-12-23 | CT_ITS ---
EXAMINATION: CT CHEST WITHOUT CONTRAST CLINICAL INFORMATION: Rule out pneumothorax. Pneumomediastinum post bronchoscopy COMPARISON: Previous chest x-rays most recent from earlier in day and chest CT 12/04/2021 TECHNIQUE: Multidetector volumetric CT imaging of the chest was done. Axial MIP volume rendering provided. Sagittal and coronal reformatted images were obtained. This CT examination was performed using dose optimization techniques as appropriate, variously including the following: *Automated exposure control *Adjustment of mA and/or kV according to patient size (this includes techniques or standardized protocols for targeted exams where dose is matched to indication/reason for exam; i.e. extremities or head) *Use of iterative reconstruction technique DLP: 449 mGy-cm FINDINGS: LUNGS: There is evidence of mild emphysema. There are postsurgical changes following right upper lobe lobectomy. There are increased peripheral reticular markings in the lungs questionable for interstitial lung disease. There is a new semisolid or groundglass attenuation area in the left lower lobe measuring 1 x 2.3 cm axial image 268 series 5. Infectious or inflammatory process. Favored. No endobronchial or endotracheal lesion. MEDIASTINUM: There is pneumomediastinum. No significant pneumopericardium is seen. Mediastinal lymphadenopathy. Unchanged. Normal heart size. Coronary artery calcification. Normal caliber thoracic aorta. PLEURA: There is chronic pleural thickening at the right lung apex post right upper lobe lobectomy. There is no pleural effusion. There is no pneumothorax or AXILLA: No chest wall mass or enlarged axillary lymph nodes. There is bilateral haziness emphysema. UPPER ABDOMEN: There are postsurgical changes to the upper abdominal wall. There is mild diverticulosis of the colon. There is a small right renal stone. OSSEOUS STRUCTURES: There are degenerative changes of the spine. CT/CT chest wo con IMPRESSION: Pneumomediastinum. Subcutaneous emphysema in the bilateral neck, right greater than left. No pneumothorax. Stable postsurgical changes from right upper lobe lobectomy. New heterogeneous or semisolid/ground glass attenuation area in the left lower lobe from exam from earlier this month probably related to infectious or inflammatory process. Mild emphysema and question mild peripheral interstitial lung disease. Fleischner guidelines were followed.
--- NOTE | ~2021-12-23 | XR_ITS ---
EXAMINATION: PORTABLE CHEST 1 VIEW CLINICAL INFORMATION: pneumomediastinum . COMPARISON: 12/23/2021. TECHNIQUE: Portable frontal view of the chest was obtained. FINDINGS: Lungs are well expanded. Postoperative changes are seen in the right hemithorax with chain staple lines in the right hilar and suprahilar region. Mild asymmetric right apical pleural capping is seen. I do not appreciate any significant infiltrate or consolidation. No effusion edema or pneumothorax. There is subcutaneous gas overlying the right neck extending along superior right mediastinum but this has decreased from the prior study. XR/XR chest 1V IMPRESSION: Postoperative changes. Decreased subcutaneous emphysema that was tracking into the mediastinum compared to yesterday's study.
[2021-12-23 11:36] VITALS: BP 117/77; PULSE 79; RESP 20; TEMP 36.6; O2SAT 99; BMI 37.8
--- NOTE | 2021-12-23 12:05 | ED_ITS ---
HPI - General Adult General Chief complaint: General Medical Stated complaint: Lung deflating sent by Dr corbett Time Seen by Provider: 12/23/21 11:17 Source: patient and old records reviewed Mode of arrival: ambulatory Limitations: no limitations History of Present Illness HPI narrative: 56 yo female with hx of COPD, UTI, s/p RUL lobectomy and mediastinal lymphadenactomy 05/2021 for lung cancer post operatively his course was complicated by diverticulitis with colovesicular fistula with surgery so he chemo was just started a few weeks ago. Patient underwent EBUS with plan for biopsy yesterday post procedure CXR showed pneumomediastinum ?PTX today sent to ED for further working including CT scan MD complaint: possible pneumothorax Onset (ago): day(s) (1) Location: chest Severity: mild Quality: dull Pain Consistency: intermittent Relieving factors: rest Exacerbating factors: other (coughing) Associated symptoms: other (can feel air in his neck ) Treatments prior to arrival: none Related Data Home Medications Medication Instructions Recorded Confirmed amlodipine 10 mg tablet 5 mg PO DAILY 01/17/21 12/12/21 bupropion HCl 150 mg tablet,12 hr 1 tab PO DAILY 01/17/21 12/12/21 sustained-release hydrochlorothiazide 25 mg tablet 1 tab PO DAILY 01/17/21 12/12/21 metoprolol succinate 50 mg 1 tab PO DAILY 01/17/21 12/12/21 tablet,extended release 24 hr trazodone 50 mg tablet 1 tab PO BEDTIME 01/17/21 12/12/21 Previous Rx's Medication Instructions Recorded dexamethasone 4 mg tablet 4 mg PO BID #100 tabs 07/10/21 (Decadron) folic acid 1 mg tablet 1 mg PO DAILY #60 tabs 07/10/21 ondansetron HCl 8 mg tablet 8 mg PO Q8H #50 tabs 07/10/21 nicotine 21 mg/24 hr daily 1 patch transdermal Q24H #21 ea 11/20/21 transdermal patch Allergies Allergy/AdvReac Type Severity Reaction Status Date / Time No Known Allergies Allergy Unknown UN Verified 12/12/21 10:30 Review of Systems Review of Systems: Constitutional : No Fever, No Chills ENT/Mouth : No sore throat, No Rhinorrhea, No Swallowing Difficulty Eyes: No Eye Pain, No Swelling, No Redness Cardiovascular : No Chest Pain, positive SOB, No Orthopnea, no Edema Respiratory : No Cough, No Sputum, No Wheezing, positive dyspnea Gastrointestinal : No Nausea, No Vomiting, No Diarrhea, No abdominal Pain, No Hematochezia, No Melena Genitourinary : No Dysuria, No Urinary Frequency, No Hematuria Musculoskeletal : No joint pain, No Myalgias Skin : No Skin Lesions, No rash Neuro : No Weakness, No Numbness, No Dizziness, No Headache Psych : No Anxiety/Panic, No Depression Heme/Lymph: No Bruising, No Lymphadenopathy Endocrine : No Polyuria, No Polydipsia All other systems reviewed and are negative [facility] Past Medical History Attestation statement: The following information was validated with the patient. Medical History Afib Colitis Constipation Depression Diverticula of intestine Hypertension Obstructive sleep apnea Surgical History History of colonoscopy History of ileostomy (~2021) History of lobectomy of lung (~2020) Family History Family History Father Colon cancer Mother Diabetes Social History Social History Household Members: Spouse Housing: Apartment Are you a primary intensive care unit nurse to a significant other at home: No Do you presently have visiting nurse or other home services: No Alcohol intake: never Patient Tobacco Use Status: Former Tobacco user Tobacco use type: Cigarette Cigarette Packs Per Day: 0.34 Years Smoked: 30 e-Cigarette/Vaping Use: Currently Using Second Hand Smoke Exposure: No Advance Directives: Yes Advance Directives on File: Yes Advance Directives Date on File: 11/18/21 service: No Current occupational status: employed Current occupation: Works in [employer] department at [employer] Physical Exam ED Vital Signs: Vital Signs - 24 hr 12/23/21 11:36 Temperature 98 F Pulse Rate 79 Respiratory Rate 20 Blood Pressure 117/77 Pulse Oximetry 99 Oxygen Delivery Method Room Air BMI result Body Mass Index 37.8 Appearance: Alert. Oriented X3. No acute distress. Eyes: Pupils equal, round and reactive to light. ENT: Pharynx normal. Neck: Subq air felt R anterior neck and supraclavicular area CVS: Normal heart rate and rhythm. Pulses normal. Respiratory: No respiratory distress. Breath sounds normal. Abdomen: Soft and non-tender. ostomy in place Skin: Skin warm and dry. Normal skin color. Normal skin turgor. Extremities: No lower extremity edema. No calf ttp Neuro: Oriented X 3. No motor deficit. No sensory deficit. Course Course Course Narrative: no PTX, pulmonology would recommend keeping overnight to make sure resp status is stable and keep on supplement O2 small area of GGO and consolidation left lung given recent procedure will place on antibiotics, infection suspected 228pm. Medical Decision Making [facility] Narrative Medical decision making narrative: 56 yo female with hx of COPD, UTI, s/p RUL lobectomy and mediastinal lymphadenactomy 05/2021 for lung cancer post operatively his course was complicated by diverticulitis with colovesicular fistula s/p bronch yesterday with pulm possible complication of PTX on CXR post procedure he does have some pneumomediastinum. Unsure if small PTX present he c/o mild dyspnea. Patient is not toxic. Labs and CT chest ordered. Lab Data Result diagrams: 12/23/21 12:35 12/23/21 12:35 Labs: Lab Results 12/23/21 12/23/21 12/23/21 Range/Units 12:35 12:35 12:35 WBC 5.3 (4.8-10.8) X10*3/uL RBC 4.03 L D (4.60-5.80) X10*6/uL Hgb 12.4 L D (14.0-18.0) g/dl Hct 35.8 L D (42.0-52.0) % MCV 88.8 (80.0-98.0) fL MCH 30.8 (27.0-33.0) pg MCHC 34.6 (31.0-36.0) g/dl RDW 14.3 (11.0-16.0) % Plt Count 131 L D (160-400) X10*3/uL MPV 9.3 L (9.4-12.4) fL Immature Gran % (Auto) 0.6 H (0.0-0.4) % Neut % (Auto) 46.5 (45-73) % Lymph % (Auto) 34.2 (20-40) % [place] % (Auto) 17.9 H (2-11) % Eos % (Auto) 0.6 (0-4) % Baso % (Auto) 0.2 (0-2) % Lymph # (Auto) 1.8 (1.2-4.9) X10*3/uL [place] # (Auto) 0.9 (0.1-1.2) X10*3/uL Eos # (Auto) 0.0 (0.0-0.4) X10*3/uL Baso # (Auto) 0.0 (0.0-0.2) X10*3/uL Abs Immat Gran (auto) 0.03 (0.00-0.03) X10*3/uL Absolute Neuts (auto) 2.5 (2.0-8.3) x10*3/uL Absolute Nucleated RBC 0.000 (0.0-0.012) X10*3/uL Nucleated RBC % (auto) 0.0 (0.0-0.2) /100WBC PT 11.1 (10.0-13.1) SEC INR 1.0 (0.9-1.1) Sodium 141 (135-145) mmol/L Potassium 3.7 (3.3-5.1) mmol/L Chloride 103 (96-108) mmol/L Carbon Dioxide 29 (22-29) mmol/L Anion Gap 13 (12-20) BUN 27 H (9-16) mg/dL Creatinine 1.15 (0.5-1.4) mg/dL Estim Creat Clear Calc 91.2 Estimated GFR > 60 Random Glucose 91 (60-115) mg/dL Calcium 9.2 (8.4-10.2) mg/dL COVID-19 ([facility]) (Negative) COVID-19 Clin Com 12/23/21 Range/Units 12:35 WBC (4.8-10.8) X10*3/uL RBC (4.60-5.80) X10*6/uL Hgb (14.0-18.0) g/dl Hct (42.0-52.0) % MCV (80.0-98.0) fL MCH (27.0-33.0) pg MCHC (31.0-36.0) g/dl RDW (11.0-16.0) % Plt Count (160-400) X10*3/uL MPV (9.4-12.4) fL Immature Gran % (Auto) (0.0-0.4) % Neut % (Auto) (45-73) % Lymph % (Auto) (20-40) % [place] % (Auto) (2-11) % Eos % (Auto) (0-4) % Baso % (Auto) (0-2) % Lymph # (Auto) (1.2-4.9) X10*3/uL [place] # (Auto) (0.1-1.2) X10*3/uL Eos # (Auto) (0.0-0.4) X10*3/uL Baso # (Auto) (0.0-0.2) X10*3/uL Abs Immat Gran (auto) (0.00-0.03) X10*3/uL Absolute Neuts (auto) (2.0-8.3) x10*3/uL Absolute Nucleated RBC (0.0-0.012) X10*3/uL Nucleated RBC % (auto) (0.0-0.2) /100WBC PT (10.0-13.1) SEC INR (0.9-1.1) Sodium (135-145) mmol/L Potassium (3.3-5.1) mmol/L Chloride (96-108) mmol/L Carbon Dioxide (22-29) mmol/L Anion Gap (12-20) BUN (9-16) mg/dL Creatinine (0.5-1.4) mg/dL Estim Creat Clear Calc Estimated GFR Random Glucose (60-115) mg/dL Calcium (8.4-10.2) mg/dL COVID-19 ([facility]) Negative (Negative) COVID-19 Clin Com See Note Discharge Plan Discharge Clinical Impression: Pneumomediastinum, Anemia, Opacity of lung on imaging study Patient Disposition: Admitted As Inpatient
[2021-12-23 12:42] LABS: MANUAL DIFF FLAG NO
[2021-12-23 12:53] LABS: Basophils Percent Auto 0.2 % (0-2); Eosinophils Percent Auto 0.6 % (0-4); Hematocrit 35.8 % (42.0-52.0); Hemoglobin 12.4 g/dl (14.0-18.0); Imm Gran Abs Auto 0.03 X10*3/uL (0.00-0.03); Imm Gran Pct Auto 0.6 % (0.0-0.4); Lymphocytes Absolute Auto 1.8 X10*3/uL (1.2-4.9); Lymphocytes Percent Auto 34.2 % (20-40); Mean Corpuscular HGB Conc 34.6 g/dl (31.0-36.0); Mean Corpuscular Hemoglobin 30.8 pg (27.0-33.0); Mean Corpuscular Volume 88.8 fL (80.0-98.0); Mean Platelet Volume 9.3 fL (9.4-12.4); Monocytes Absolute Auto 0.9 X10*3/uL (0.1-1.2); Monocytes Percent Auto 17.9 % (2-11); Neutrophils Absolute Auto 2.5 x10*3/uL (2.0-8.3); Neutrophils Percent Auto 46.5 % (45-73); Platelet Count 131 X10*3/uL (160-400); Red Blood Count 4.03 X10*6/uL (4.60-5.80); Red Cell Distribution Width 14.3 % (11.0-16.0); White Blood Count 5.3 X10*3/uL (4.8-10.8)
[2021-12-23 13:07] LABS: Anion Gap 13 (12-20); Blood Urea Nitrogen 27 mg/dL (9-16); Calcium 9.2 mg/dL (8.4-10.2); Carbon Dioxide 29 mmol/L (22-29); Chloride 103 mmol/L (96-108); Creatinine Clr Calc Pharmacy 91.2; Estimated Glomerular Filt Rate > 60; Glucose Random 91 mg/dL (60-115); Potassium 3.7 mmol/L (3.3-5.1); Sodium 141 mmol/L (135-145)
[2021-12-23 13:10] LABS: Prothrombin Time 11.1 SEC (10.0-13.1)
[2021-12-23 13:11] LABS: COVID-19 Test Negative (Negative); IDNOW Serial# 9DB6401D
[2021-12-23 14:36] LABS: OBS1 NEGATIVE (NEGATIVE)
[2021-12-23 14:37] LABS: OBS Int Ctl Valid YES
--- NOTE | 2021-12-23 14:46 | PM.IMHP ---
History of Present Illness Date of Service: 12/23/21 Chief Complaint: pneumomediastinum 56-year-old man presented to the ER with pneumomediastinum. He is status post bronchoscopy from 12/22/2021. He had a repeat x-ray which showed subcutaneous emphysema and pneumomediastinum to the bilateral neck right greater than left without pneumothorax. He reported his only symptom was feeling congested and needing to lie flat when sleeping. He denied chest pain, shortness breath, nausea, vomiting, diarrhea. He does have a history of lung cancer and is currently undergoing chemotherapeutic and radiation treatments. In the ER, labs within acceptable limits. Vital signs stable. He was started on oxygen. He will be observed overnight. Review of Systems Review of Systems: Denies any recent fever chills or decrease in appetite respiratory denies any shortness of breath coverage production cardiovascular Denies chest pain gastrointestinal denies any dysphagia abdominal pain nausea vomiting or diarrhea genitourinary denies any dysuria frequency or hematuria musculoskeletal denies any joint pain or swelling neuropsych denies any weakness or seizures all other systems reviewed are negative [facility] Medical History (Updated 12/23/21 @ 14:47 by Valencia Wallis NP) Afib Colitis Constipation COPD (chronic obstructive pulmonary disease) Depression Diverticula of intestine Gilbert's syndrome Hypertension Nicotine dependence, cigarettes, uncomplicated Non-small cell lung cancer (~2020) Obesity (BMI 35.0-39.9 without comorbidity) Obstructive sleep apnea Family History Father Colon cancer Mother Diabetes Surgical History History of colonoscopy History of ileostomy (~2021) History of lobectomy of lung (~2020) Social History Household Members: Spouse Housing: Apartment Are you a primary home health care case manager to a significant other at home: No Do you presently have visiting nurse or other home services: No Alcohol intake: never Patient Tobacco Use Status: Former Tobacco user Tobacco use type: Cigarette Cigarette Packs Per Day: 0.34 Years Smoked: 30 e-Cigarette/Vaping Use: Currently Using Second Hand Smoke Exposure: No Use of substances other than those prescribed or required for medical reasons: No Have you been hit, kicked, punched, or otherwise hurt by someone within the past year? If so, by whom?: No Do you feel safe in your current relationship?: Yes Advance Directives Date on File: 11/18/21 Do you have thoughts of harming others: None Do you have a plan to hurt others: No Plan Do you have the means to hurt others: No Recently lost weight without trying: No service: No Current occupational status: employed Current occupation: Works in [employer] at [employer] Meds Allergies Allergy/AdvReac Type Severity Reaction Status Date / Time No Known Allergies Allergy Unknown UN Verified 12/12/21 10:30 Active Medications: Current Medications Ceftriaxone Sodium 1 gm/ (Sodium Chloride) 50 mls @ 100 mls/hr IV ONCE ONE Stop: 12/23/21 14:52 Piperacillin Sod/Tazobactam (Sod 3.375 gm/ Sodium Chloride) 50 mls @ 100 mls/hr IV ONCE ONE Stop: 12/23/21 14:57 Pharmacy Consult (Consult Rx Perform Med Rec) 1 each MISCELLANE ONCE PRN PRN Reason: Consult order Home Medications Medication Instructions Recorded Confirmed Last Taken Type bupropion HCl 150 mg tablet,12 hr 1 tab PO BID 01/17/21 12/23/21 12/22/21 History sustained-release hydrochlorothiazide 25 mg tablet 1 tab PO DAILY 01/17/21 12/23/21 12/22/21 History trazodone 50 mg tablet 1 tab PO BEDTIME 01/17/21 12/23/21 12/22/21 History amlodipine 5 mg tablet 1 tab PO DAILY 12/23/21 12/23/21 12/22/21 History aspirin 81 mg tablet,delayed 1 tab PO DAILY 12/23/21 12/23/21 12/22/21 History release loperamide 2 mg capsule 1 cap PO TIDAC 12/23/21 12/23/21 12/22/21 History metoprolol succinate 100 mg 1 tab PO DAILY 12/23/21 12/23/21 12/22/21 History tablet,extended release 24 hr Physical Exam Vital Signs and Narrative: Vital Signs: Last Vital Signs Temp 98 F 12/23/21 11:36 Pulse 79 12/23/21 11:36 Resp 20 12/23/21 11:36 BP 117/77 12/23/21 11:36 Pulse Ox 99 12/23/21 11:36 O2 Del Method 12/23/21 11:36 BMI result Body Mass Index 37.8 Appearing in no acute distress head is normocephalic atraumatic eyes pupils are PERRLA sclera is anicteric mouth throat mucous membranes are intact and moist neck is supple no lymphadenopathy, no JVD noted lung sounds are clear to auscultation heart regular rate rhythm, clear S1, S2 positive bowel sounds, abdomen is soft, nontender neuro patient is alert x3, no focal deficits subcutaneous emphysema felt more to the right upper chest and neck area Results Labs CBC and Chem 7: 12/24/21 05:59 12/24/21 05:59 Labs: Laboratory Results - last 24 hr 12/23/21 12/23/21 12/23/21 12:35 12:35 12:35 MCV 88.8 MCH 30.8 MCHC 34.6 RDW 14.3 Plt Count 131 L D MPV 9.3 L Immature Gran % (Auto) 0.6 H Neut % (Auto) 46.5 Lymph % (Auto) 34.2 [place] % (Auto) 17.9 H Eos % (Auto) 0.6 Baso % (Auto) 0.2 Lymph # (Auto) 1.8 [place] # (Auto) 0.9 Eos # (Auto) 0.0 Baso # (Auto) 0.0 Abs Immat Gran (auto) 0.03 Absolute Neuts (auto) 2.5 Absolute Nucleated RBC 0.000 Nucleated RBC % (auto) 0.0 PT 11.1 INR 1.0 Anion Gap 13 Estim Creat Clear Calc 91.2 Estimated GFR > 60 Random Glucose 91 Calcium 9.2 Stool Occult Blood COVID-19 ([facility]) COVID-19 Clin Com 12/23/21 12/23/21 12:35 14:32 MCV MCH MCHC RDW Plt Count MPV Immature Gran % (Auto) Neut % (Auto) Lymph % (Auto) [place] % (Auto) Eos % (Auto) Baso % (Auto) Lymph # (Auto) [place] # (Auto) Eos # (Auto) Baso # (Auto) Abs Immat Gran (auto) Absolute Neuts (auto) Absolute Nucleated RBC Nucleated RBC % (auto) PT INR Anion Gap Estim Creat Clear Calc Estimated GFR Random Glucose Calcium Stool Occult Blood NEGATIVE COVID-19 ([facility]) Negative COVID-19 Clin Com See Note Imaging Radiologist's Impressions: Impressions Chest CT 12/23/21 12:19 IMPRESSION: Pneumomediastinum. Subcutaneous emphysema in the bilateral neck, right greater than left. No pneumothorax. Stable postsurgical changes from right upper lobe lobectomy. New heterogeneous or semisolid/ground glass attenuation area in the left lower lobe from exam from earlier this month probably related to infectious or inflammatory process. Mild emphysema and question mild peripheral interstitial lung disease. Fleischner guidelines were followed. Assessment and Plan (1) Non-small cell lung cancer: (2) Pneumomediastinum: Status: Acute Plan 56-year-old man placed on observation for pneumomediastinum status post bronchoscopy on 12/22 Pneumomediastinum with subcutaneous emphysema Observe overnight Follow respiratory status Repeat chest x-ray in the morning Pulmonology following Hypertension Blood pressure in the softer side Hold antihypertensive medications for now and restart when blood pressures allows Mental health Continue home medications DVT prophylaxis with early ambulation Attending Dr. Cortez Full code Quality Stroke Does the patient have a stroke diagnosis?: No VTE Prior VTE?: No VTE Risk Level:: Medical - moderate - high VTE Device Contraindication: Treatment Not Indicated VTE Drug Contraindication: N/A - Med Ordered
--- NOTE | 2021-12-23 15:00 | PHA.MEDREC ---
Pharmacy Consult ? Medication Reconciliation Pharmacy has completed the medication reconciliation. Pt no longer takes flecainide
[2021-12-23 15:36] LABS: Lactic Acid 1.4 mmol/L (0.5-2.0)
[2021-12-23] MEDS: cefTRIAXone sodium 1 GM in 0.9 % Sodium Chloride 50 ML IV (15:51)
[2021-12-23] MEDS: Enoxaparin Sodium 40 MG/0.4 ML SYRINGE SUBCUT (16:03)
[2021-12-23] MEDS: Piperacillin Sodium/Tazobactam 3.375 GM in 0.9 % Sodium Chloride 50 ML IV (16:03)
[2021-12-23] MEDS: 0.9 % Sodium Chloride Flush 3 ML SYRINGE IVFLUSH (16:05)
--- NOTE | 2021-12-23 18:08 | PC.NURSE ---
Pt. and his (at bedside) have been requesting a food tray for the pt. since appx. 1400 today. After the meal tray not showing up, his RN has called the kitchen x4, FREEDOM Guadarrama has called x5, FREEDOM Hu called x1, MELE Tidwell and JOHNNY Zimmerman have also made numerous calls each to the kitchen to request a meal tray. At appx. 1600, while waiting for a meal tray, this RN found a peanut butter and jelly sandwich and a cheese stick in the ED refrigerator. This RN brought the sandwich and cheese stick to the pt. while his was present, apologized numerous times re: waiting on their meal tray, informed them that many staff members have called and that the kitchen should be by shortly with the tray. At appx. 1700, the pt.'s came out of the room, verbally assaulting staff, yelling in FREEDOM Guadarrama's face, Do you want me to be a bitch?!?! We need food NOW! , threatening that she has already called her business planning analyst and will be suing the hospital. When shoe lining fitterMELE Negrete approached the pt.'s room to diffuse the situation, pt.'s screamed, Where is the fucking food?!? Cafeteria staff were also present at the time and called to the floor in attempt to try to de-escalate the situation, with a food tray in-hand. Pt. was given a jug of water by vijay Negrete and was checked for comfort. Vijay Negrete is now working on expediting a bed assignment for this pt. at this time.
--- NOTE | 2021-12-23 19:15 | PC.NURSE ---
Report called to ED overflow dept.
[2021-12-23 19:17] VITALS: BP 125/76; PULSE 84; RESP 18; TEMP 36.8; O2SAT 99
--- NOTE | 2021-12-23 22:09 | PC.NURSE ---
no assessment documented by previous shift RN
--- NOTE | 2021-12-23 22:13 | PC.NURSE ---
pt called to let this RN know that he normally takes 50 mg trazadone and 150mg of bupropion every night, to be made aware
[2021-12-23] MEDS: traZODone HCL 50 MG TABLET PO (22:58)
[2021-12-23 23:41] VITALS: BP 130/80; PULSE 84; RESP 20; TEMP 36.8; O2SAT 99
[2021-12-24] MEDS: 0.9 % Sodium Chloride Flush 3 ML SYRINGE IVFLUSH (00:05)
[2021-12-24 06:23] LABS: MANUAL DIFF FLAG NO
[2021-12-24 06:25] LABS: Basophils Percent Auto 0.2 % (0-2); Eosinophils Absolute Auto 0.1 X10*3/uL (0.0-0.4); Hematocrit 34.8 % (42.0-52.0); Hemoglobin 11.9 g/dl (14.0-18.0); Imm Gran Abs Auto 0.02 X10*3/uL (0.00-0.03); Imm Gran Pct Auto 0.4 % (0.0-0.4); Lymphocytes Absolute Auto 1.9 X10*3/uL (1.2-4.9); Lymphocytes Percent Auto 39.6 % (20-40); Mean Corpuscular HGB Conc 34.2 g/dl (31.0-36.0); Mean Corpuscular Hemoglobin 30.7 pg (27.0-33.0); Mean Corpuscular Volume 89.9 fL (80.0-98.0); Mean Platelet Volume 9.4 fL (9.4-12.4); Monocytes Absolute Auto 0.8 X10*3/uL (0.1-1.2); Monocytes Percent Auto 17.6 % (2-11); Neutrophils Percent Auto 41.2 % (45-73); Platelet Count 114 X10*3/uL (160-400); Red Blood Count 3.87 X10*6/uL (4.60-5.80); Red Cell Distribution Width 14.4 % (11.0-16.0); White Blood Count 4.8 X10*3/uL (4.8-10.8)
[2021-12-24 06:43] LABS: Anion Gap 14 (12-20); Blood Urea Nitrogen 27 mg/dL (9-16); Calcium 8.6 mg/dL (8.4-10.2); Carbon Dioxide 26 mmol/L (22-29); Chloride 103 mmol/L (96-108); Estimated Glomerular Filt Rate 57; Glucose Random 90 mg/dL (60-115); Potassium 3.7 mmol/L (3.3-5.1); Sodium 139 mmol/L (135-145)
[2021-12-24 06:48] VITALS: BP 112/74; PULSE 79; RESP 17; TEMP 36.6; O2SAT 98
[2021-12-24 08:00] VITALS: BP 140/88; PULSE 73; RESP 18; O2SAT 99
[2021-12-24] MEDS: buPROPion HCl XL 300 MG TAB.ER.24H PO (09:31)
--- NOTE | 2021-12-24 09:31 | MHC.CM.PN ---
Met with patient. Delivered GIFFORD. 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 He is independent and no needs at home. to drive home on dc.
[2021-12-24 09:36] VITALS: O2SAT 97
--- NOTE | 2021-12-24 09:59 | P.CONPL_ITS ---
History of Present Illness History of Present Illness Consult date: 12/24/21 Chief complaint: pneumomedisastinum Narrative: This is an inpatient consultation.? The patient is a 56-year-old man with a known history of lung cancer status post right upper lobe lobectomy and also receive chemotherapy. He underwent a PET scan demonstrating FDG activity in the right paratracheal lymph node. Therefore he was set up to undergo an elective endobronchial ultrasound bronchoscopy with trans tracheal needle aspiration of the 4R lymph node. The procedure was technically difficult based on the fact that the lymph node was deeper into the mediastinum in the EBUS needle had to be inserted up to 4 cm into the airway. Post off the patient did have some pneumomediastinum and some subcutaneous air but he was asymptomatic. He did go home. He was asked to come back the next day to have an x-ray. When he came back the next day the patient did have some fullness of the chest and neck and had some difficulty swallowing. His x-ray demonstrates some interval slight worsening of the pneumomediastinum and subcutaneous air. He presented to the ER with pneumomediastinum.? He is status post bronchoscopy from 12/22/2021.? He had a repeat x-ray which showed subcutaneous emphysema and pneumomediastinum to the bilateral neck right greater than left without pneumothorax.? He reported his only symptom was feeling congested and needing to lie flat when sleeping.? He denied chest pain, shortness breath, nausea, vomiting, diarrhea.? He does have a history of lung cancer and is currently undergoing chemotherapeutic and radiation treatments.? In the ER, labs within acceptable limits.? Vital signs stable.? He was started on oxygen. ?Today the patient is feeling better. Repeat x-ray demonstrated slight decrease in the pneumomediastinum and subcutaneous air. He denies any chest pains. He also underwent a CT scan of the chest again demonstrating intact lung parenchyma without evidence of pneumothorax. He was likely that the no mediastinum occurred from the puncture of the trachea with the needle aspiration. Review of Systems Review of Systems: Denies any recent fever chills or decrease in appetite respiratory denies any shortness of breath coverage production cardiovascular Denies chest pain gastrointestinal denies any dysphagia abdominal pain nausea vomiting or diarrhea genitourinary denies any dysuria frequency or hematuria musculoskeletal denies any joint pain or swelling neuropsych denies any weakness or seizures all other systems reviewed are negative PMFSH Past Medical History Medical History (Updated 12/23/21 @ 14:47 by Valencia Wallis NP) Afib Colitis Constipation Depression Diverticula of intestine Hypertension Non-small cell lung cancer (~2020) Obstructive sleep apnea Family History Family History Father Colon cancer Mother Diabetes Surgical History Surgical History History of colonoscopy History of ileostomy (~2021) History of lobectomy of lung (~2020) Social History Social History Household Members: Spouse Housing: Apartment Are you a primary certified social workers in health care to a significant other at home: No Do you presently have visiting nurse or other home services: No Alcohol intake: never Patient Tobacco Use Status: Former Tobacco user Tobacco use type: Cigarette Cigarette Packs Per Day: 0.34 Years Smoked: 30 e-Cigarette/Vaping Use: Currently Using Second Hand Smoke Exposure: No Advance Directives: Yes Advance Directives on File: Yes Advance Directives Date on File: 11/18/21 service: No Current occupational status: employed Current occupation: Works in [employer]up [employer] department at [employer] Meds Allergies Allergy/AdvReac Type Severity Reaction Status Date / Time No Known Allergies Allergy Unknown UN Verified 12/12/21 10:30 Active Medications: Current Medications Acetaminophen (Acetaminophen 325 Mg Tablet) 650 mg PO Q6H PRN PRN Reason: Pain, Mild (Pain Scale 1-3) Bupropion HCl (Bupropion Hcl Xl 300 Mg Tab.Er.24h) 300 mg PO DAILY [facility] Last Admin: 12/24/21 09:31 Dose: 300 mg Enoxaparin Sodium (Enoxaparin Sodium 40 Mg/0.4 Ml Syringe) 40 mg SUBCUT Q24H [facility] Last Admin: 12/23/21 16:03 Dose: 40 mg Ondansetron HCl (Ondansetron Hcl 4 Mg/2 Ml Vial) 4 mg IVPUSH Q8H PRN PRN Reason: Nausea and Vomiting Pharmacy Consult (Consult Rx Perform Med Rec) 1 each MISCELLANE ONCE PRN PRN Reason: Consult order Sodium Chloride (0.9 % Sodium Chloride Flush 3 Ml Syringe) 3 ml IVFLUSH QSHIFT [facility] Last Admin: 12/24/21 09:32 Dose: Not Given Trazodone HCl (Trazodone Hcl 50 Mg Tablet) 50 mg PO BEDTIME [facility] Last Admin: 12/23/21 22:58 Dose: 50 mg Home Medications Medication Instructions Recorded Confirmed Last Taken Type bupropion HCl 150 mg tablet,12 hr 1 tab PO BID 01/17/21 12/23/21 12/22/21 H istory sustained-release hydrochlorothiazide 25 mg tablet 1 tab PO DAILY 01/17/21 12/23/21 12/22/21 History trazodone 50 mg tablet 1 tab PO BEDTIME 01/17/21 12/23/21 12/22/21 History amlodipine 5 mg tablet 1 tab PO DAILY 12/23/21 12/23/21 12/22/21 History aspirin 81 mg tablet,delayed 1 tab PO DAILY 12/23/21 12/23/21 12/22/21 History release loperamide 2 mg capsule 1 cap PO TIDAC 12/23/21 12/23/21 12/22/21 History metoprolol succinate 100 mg 1 tab PO DAILY 12/23/21 12/23/21 12/22/21 History tablet,extended release 24 hr Physical Exam Vital Signs: Vital Signs: Last Vital Signs Temp 97.8 F 12/24/21 06:48 Pulse 73 12/24/21 08:00 Resp 18 12/24/21 08:00 BP 140/88 H 12/24/21 08:00 Pulse Ox 97 12/24/21 09:36 O2 Del Method 12/24/21 09:36 O2 Flow Rate 2 12/24/21 06:48 BMI result Body Mass Index 37.8 General: No acute distress HEENT: Moist mucous membranes, normocephalic, pupils equal round and reactive to light. Neck: No thyromegaly, supple, no JVD +subcut crepitus Lymph: No cervical, supraclavicular, or other lymphadenopathy Chest: No chest wall abnormalities or deformities well-healed chest wounds Heart: Regular rate and rhythm Lungs: Clear to auscultation bilaterally Abdomen: Soft, nontender, normal bowel sounds well-healed midline incision and healthy-looking stoma Extremities: No edema, cyanosis, or clubbing. Full range of motion Neuro: Grossly intact, alert and oriented x3, and nonfocal Skin: Warm and dry no rashes Affect: Normal Results Laboratory Findings CBC and BMP: 12/24/21 05:59 12/24/21 05:59 ABG, PT/INR, D-dimer: PT/INR, D-dimer PT 11.1 SEC (10.0-13.1) 12/23/21 12:35 INR 1.0 (0.9-1.1) 12/23/21 12:35 Abnormal lab findings: Abnormal Labs 12/23/21 12/23/21 12/24/21 12:35 12:35 05:59 RBC 4.03 L D 3.87 L Hgb 12.4 L D 11.9 L Hct 35.8 L D 34.8 L Plt Count 131 L D 114 L MPV 9.3 L Immature Gran % (Auto) 0.6 H Neut % (Auto) 41.2 L Converse % (Auto) 17.9 H 17.6 H BUN 27 H 12/24/21 05:59 RBC Hgb Hct Plt Count MPV Immature Gran % (Auto) Neut % (Auto) Converse % (Auto) BUN 27 H Diagnostic Findings Chest x-ray: report reviewed and image reviewed CT scan - chest: report reviewed and image reviewed Assessment and Plan (1) Pneumomediastinum: Status: Acute (2) Pneumomediastinum: Status: Acute (3) Abnormal PET scan of lung: Status: Acute Plan -ok to go home -Awaiting 4R lymphnode cytology -Repeat CXR as outpt in 2-3 days -Should return to the ED or call or office if any worsening symptoms arise Procedures Date of Service Date of Service: 12/24/21
--- NOTE | 2021-12-24 10:09 | PC.NURSE ---
Pt is A/O resting in hospital bed. VSS. pt weaned to room air. SpO2 between 96-98%. pt tolerating well. Crepitus still noted in the right neck. pt denies pain. medicated per AUG.
--- NOTE | 2021-12-24 11:14 | PC.NURSE ---
Pt stating that he does not want to wait anymore. pt stating that he wants to leave. Family at bedside stating that there is terrible service here. Provider messaged on [email or web address] with no response.
--- NOTE | 2021-12-24 11:21 | P.DS_ITS ---
DS: Providers Provider Date of Service: 12/24/21 Date of admission: 12/23/21 14:55 Primary care physician: Bogdan Ha MD Attending physician on discharge: Stas Claros Discharging clinician: Valencia aWllis DS: Diagnosis Discharge Diagnosis (1) Pneumomediastinum: Status: Acute (2) Pneumomediastinum: Status: Acute (3) Abnormal PET scan of lung: Status: Acute DS: Summary Hospital Course Hospital Course: 56-year-old man presented to the ER with pneumomediastinum.? He is status post bronchoscopy from 12/22/2021.? He had a repeat x-ray which showed subcutaneous emphysema and pneumomediastinum to the bilateral neck right greater than left without pneumothorax.? He reported his only symptom was feeling congested and needing to lie flat when sleeping.? He denied chest pain, shortness breath, nausea, vomiting, diarrhea.? He does have a history of lung cancer and is currently undergoing chemotherapeutic and radiation treatments.? In the ER, labs within acceptable limits.? Vital signs stable.? He was started on oxygen. ? He will be observed overnight. Pneumomediastinum with subcutaneous emphysema. Significantly improved Observed overnight Repeat chest x-ray showed improvement Pulmonology following as outpatient Repeat chest x-ray on Wednesday Hypertension resume blood pressure medications Mental health Continue home medications Time Spent with Patient Time attestation: Total time spent providing and/or coordinating discharge services: Discharge coordination time: Greater than 30 minutes Quality: Safe Use of Opioids Does Pt have an Active Cancer Diagnosis on the Problem List?: No Quality: Stroke Does the patient have a stroke diagnosis?: No Physical Exam Vital Signs: Vital Signs: Last Vital Signs Temp 97.8 F 12/24/21 06:48 Pulse 73 12/24/21 08:00 Resp 18 12/24/21 08:00 BP 140/88 H 12/24/21 08:00 Pulse Ox 97 12/24/21 09:36 O2 Del Method 12/24/21 09:36 O2 Flow Rate 2 12/24/21 06:48 BMI result Body Mass Index 37.8 Appearing in no acute distress head is normocephalic atraumatic eyes pupils are PERRLA sclera is anicteric mouth throat mucous membranes are intact and moist neck is supple no lymphadenopathy, no JVD noted, mild crepitus to right upper chest moving to left upper chest, none in the neck lung sounds are clear to auscultation heart regular rate rhythm, clear S1, S2 positive bowel sounds, abdomen is soft, nontender neuro patient is alert x3, no focal deficits DS: Data Data Completed and Pending Labs on day of discharge: Laboratory Results - last 24 hr 12/23/21 12/23/21 12/23/21 12:35 12:35 12:35 WBC 5.3 RBC 4.03 L D Hgb 12.4 L D Hct 35.8 L D MCV 88.8 MCH 30.8 MCHC 34.6 RDW 14.3 Plt Count 131 L D MPV 9.3 L Immature Gran % (Auto) 0.6 H Neut % (Auto) 46.5 Lymph % (Auto) 34.2 Mcnairy % (Auto) 17.9 H Eos % (Auto) 0.6 Baso % (Auto) 0.2 Lymph # (Auto) 1.8 Mcnairy # (Auto) 0.9 Eos # (Auto) 0.0 Baso # (Auto) 0.0 Abs Immat Gran (auto) 0.03 Absolute Neuts (auto) 2.5 Absolute Nucleated RBC 0.000 Nucleated RBC % (auto) 0.0 PT 11.1 INR 1.0 Sodium 141 Potassium 3.7 Chloride 103 Carbon Dioxide 29 Anion Gap 13 BUN 27 H Creatinine 1.15 Estim Creat Clear Calc 91.2 Estimated GFR > 60 Random Glucose 91 Lactic Acid Calcium 9.2 Stool Occult Blood COVID-19 ([facility]) [employer] Clin Com 12/23/21 12/23/21 12/23/21 12:35 14:32 15:13 WBC RBC Hgb Hct MCV MCH MCHC RDW Plt Count MPV Immature Gran % (Auto) Neut % (Auto) Lymph % (Auto) Mcnairy % (Auto) Eos % (Auto) Baso % (Auto) Lymph # (Auto) Mcnairy # (Auto) Eos # (Auto) Baso # (Auto) Abs Immat Gran (auto) Absolute Neuts (auto) Absolute Nucleated RBC Nucleated RBC % (auto) PT INR Sodium Potassium Chloride Carbon Dioxide Anion Gap BUN Creatinine Estim Creat Clear Calc Estimated GFR Random Glucose Lactic Acid 1.4 Calcium Stool Occult Blood NEGATIVE COVID-19 ([facility]) Negative COVID-19 Clin Com See Note 12/24/21 12/24/21 05:59 05:59 WBC 4.8 RBC 3.87 L Hgb 11.9 L Hct 34.8 L MCV 89.9 MCH 30.7 MCHC 34.2 RDW 14.4 Plt Count 114 L MPV 9.4 Immature Gran % (Auto) 0.4 Neut % (Auto) 41.2 L Lymph % (Auto) 39.6 Mcnairy % (Auto) 17.6 H Eos % (Auto) 1.0 Baso % (Auto) 0.2 Lymph # (Auto) 1.9 Mcnairy # (Auto) 0.8 Eos # (Auto) 0.1 Baso # (Auto) 0.0 Abs Immat Gran (auto) 0.02 Absolute Neuts (auto) 2.0 Absolute Nucleated RBC 0.000 Nucleated RBC % (auto) 0.0 PT INR Sodium 139 Potassium 3.7 Chloride 103 Carbon Dioxide 26 Anion Gap 14 BUN 27 H Creatinine 1.31 Estim Creat Clear Calc 80.0 Estimated GFR 57 Random Glucose 90 Lactic Acid Calcium 8.6 D Stool Occult Blood COVID-19 ([facility]) COVID-19 Clin Com Discharge Plan Discharge Anticipated Discharge Date/Time: 12/24/21 11:17 Patient Disposition: Home, Self-Care Discharge Diagnosis: pneumomediastinum Referrals: Bogdan Ha MD [Primary Care Provider] - 1 Week Discharge Medications: Continued bupropion HCl 150 mg tablet sustained-release 12 hr 1 tab PO BID trazodone 50 mg tablet 1 tab PO BEDTIME hydrochlorothiazide 25 mg tablet 1 tab PO DAILY folic acid 1 mg Tablet 1 mg PO DAILY Qty: 60 3RF nicotine 21 mg/24 hr Patch 24 Hour 1 patch TRANSDERMAL Q24H Qty: 21 0RF Rx Instructions: Subsequently Can go down to 14 mcg for 21 days. Then 7 mcg for another 21 days. loperamide 2 mg capsule 1 cap PO TIDAC metoprolol succinate 100 mg tablet extended release 24 hr 1 tab PO DAILY amlodipine 5 mg tablet 1 tab PO DAILY aspirin 81 mg tablet,delayed release (DR/EC) 1 tab PO DAILY Discharge Orders: Discharge Order (Routine); Ordered 12/24/21 Ordered By: Valencia Wallis Diet: Advance to usual diet Activity on Discharge: As tolerated Stand Alone Forms: Patient Portal Discharge page Other Ambulatory Orders: XR chest 1V (Routine) Timeframe: 2 Days Facility: [facility] - Location: Radiology Ordered By: Valencia Wallis Care Plan Goals: complete resolution of symptoms Health Concerns: pneumomediastinum Plan of Treatment: follow-up with planned giving officer as needed, repeat chest x-ray in 2 days Assessment: see discharge summary
--- NOTE | 2021-12-24 11:27 | PC.NURSE ---
Pt refusing to have DC vitals done. pt stating that he just wants to leave. Pt provided with DC instructions and verbalized understanding of teachings.
== END 2021-12-24 11:35 | disposition home or self-care (01) ==
LOC: HO.ED 14:17 → HO.EDOVER 15:16
PROVIDERS: Admitting Provider Nurse Practitioner Acute Care; Emergency Provider Emergency Medicine; PCP Internal Medicine; Visit Provider Nurse Practitioner Acute Care
DX: J43.8 Other emphysema (principal); R91.8 Other nonspecific abnormal finding of lung field; C34.11 Malignant neoplasm of upper lobe, right bronchus or lung; D64.9 Anemia, unspecified; I10 Essential (primary) hypertension; I48.91 Unspecified atrial fibrillation; F32.A Depression, unspecified; E80.4 Gilbert syndrome; E66.9 Obesity, unspecified; G47.33 Obstructive sleep apnea (adult) (pediatric); Z98.890 Other specified postprocedural states; Z79.899 Other long term (current) drug therapy; Z87.891 Personal history of nicotine dependence; Z87.440 Personal history of urinary (tract) infections; Z20.822 Contact with and (suspected) exposure to COVID-19; Z92.21 Personal history of antineoplastic chemotherapy; Z68.37 Body mass index [BMI] 37.0-37.9, adult
CPT/HCPCS: 36415; 71045; 71250; 80048; 82272; 83605; 85025; 85610; 87040; 87635; 96365; 96372; 96375; 99219; 99285; J0696; J1650; J2543

== ENCOUNTER 2021-12-30 10:57 | Outpatient (REF) | payer MEDICAID, SELFPAY ==
--- NOTE | ~2021-12-30 | XR_ITS ---
EXAMINATION: XR CHEST CLINICAL INFORMATION: Pneumomediastinum. COMPARISON: Chest radiographs 12/24/2021, 12/23/2021, 12/22/2021; CT chest 12/23/2021, 12/04/2021. TECHNIQUE: Frontal view x2 of the chest was obtained. FINDINGS: There are subcutaneous emphysema and pneumomediastinum appears to have resolved since prior imaging. There is no pneumothorax. Postsurgical changes are again seen upper right consistent with the right upper lobectomy. There are fine chain fernanda and mild volume loss as before. There is no airspace consolidation or groundglass opacity or air bronchograms. No effusion. Heart size normal. Vascularity unremarkable. XR/XR chest 1V IMPRESSION: -Postsurgical changes consistent with the right upper lobectomy. -No pneumothorax, pneumomediastinum, or subcutaneous emphysema. -No airspace consolidation or effusion.
== END 2021-12-30 10:58 | disposition home or self-care (01) ==
LOC: HO.XRAY 10:57
PROVIDERS: PCP Internal Medicine; Visit Provider Nurse Practitioner Acute Care
DX: J98.2 Interstitial emphysema (principal)
CPT/HCPCS: 71045

== ENCOUNTER 2022-02-12 16:24 | Outpatient (REF) | payer MEDICAID, SELFPAY ==
--- NOTE | ~2022-02-12 | US_ITS ---
EXAMINATION: US VENOUS WITH DOPPLER UPPER EXTREMITY, RIGHT CLINICAL INFORMATION: Pain in antecubital fossa right upper extremity COMPARISON: None TECHNIQUE: Ultrasound of the upper extremity is performed using compression sonography and color and pulse Doppler flow with assessment of augmentation of flow. There is also imaging and Doppler assessment of the jugular and subclavian veins. Spectral analysis with color-flow imaging is performed. FINDINGS: Respiratory variation, normal compression, and augmented flow are noted throughout the upper extremity including the axillary, brachial, cubital, and radial and ulnar veins. There is normal flow in the internal jugular and subclavian veins. There is no visible deep or superficial thrombophlebitis. If the patient's symptoms progress, a followup ultrasound in 5 -7 days might be of value to exclude proximal propagation from a nonvisualized distal arm vein. US/US venous duplex UE RT IMPRESSION: No DVT demonstrated in the right upper extremity
== END 2022-02-12 16:25 | disposition home or self-care (01) ==
LOC: HO.US 16:24
PROVIDERS: Visit Provider Internal Medicine Medical Oncology
DX: M79.601 Pain in right arm (principal); C34.90 Malignant neoplasm of unspecified part of unspecified bronchus or lung
CPT/HCPCS: 93971

== ENCOUNTER 2022-02-13 11:05 | Outpatient (REF) | payer MEDICAID, SELFPAY ==
--- NOTE | ~2022-02-13 | XR_ITS ---
EXAMINATION: XR SHOULDER, RIGHT CLINICAL INFORMATION: Right shoulder pain. COMPARISON: Radiographs of the right shoulder done on 06/23/2019. TECHNIQUE: 4 views of the right shoulder. FINDINGS: The bony alignments are intact. The cortices are intact. [id number] osteoarthrosis is noted at the acromioclavicular joint. No evidence of any abnormal soft tissue calcification. Incidental note is made of postsurgical changes within the visualized right upper lung field, new since prior study dated 06/23/2019. XR/XR shoulder RT min 2V IMPRESSION: [id number] osteoarthrosis of the right acromioclavicular joint, unchanged since 06/23/2019. Postsurgical changes within the included visualized part of the right upper lobe of the lung, new since prior study dated 06/23/2019. No other significant change.
== END 2022-02-13 11:06 | disposition home or self-care (01) ==
LOC: HO.XRAY 11:05
PROVIDERS: PCP Internal Medicine; Visit Provider Internal Medicine Medical Oncology
DX: M25.511 Pain in right shoulder (principal)
CPT/HCPCS: 73030

== ENCOUNTER 2022-03-12 14:30 | Observation (INO) | payer MEDICAID, SELFPAY ==
[2022-03-12] VITALS (8 sets, daily range): BP systolic 84–112; BP diastolic 44–68; PULSE 72–102; RESP 13–18; TEMP 36.6–37.1; O2SAT 98–100; BMI 37.6
--- NOTE | 2022-03-12 14:56 | ECG_ITS ---
Test Reason : WEAKNESS Blood Pressure : / mmHG Vent. Rate : 081 BPM Atrial Rate : 340 BPM P-R Int : 000 ms QRS Dur : 100 ms QT Int : 408 ms P-R-T Axes : 000 -02 123 degrees QTc Int : 473 ms Atrial flutter with variable A-V block Abnormal QRS-T angle, consider primary T wave abnormality Abnormal ECG When compared with ECG of 09-JAN-2008 06:19, Atrial flutter has replaced Sinus rhythm ST no longer depressed in Lateral leads Nonspecific T wave abnormality, worse in Inferior leads T wave inversion no longer evident in Anterolateral leads Referred By: Mayte Cobb Electronically Signed By:JESSA EID
--- NOTE | 2022-03-12 14:57 | ED.GENADULT ---
HPI - General Adult General Chief complaint: General Medical Stated complaint: dehydrated Time Seen by Provider: 03/12/22 14:41 Source: patient Mode of arrival: wheelchair History of Present Illness HPI narrative: 56 yo male with hx of A.fib, JAMIE, COPD, UTI, s/p RUL lobectomy and mediastinal lymphadenactomy 05/2021 for lung cancer post operatively his course was complicated by diverticulitis with colovesicular fistula with surgery, just completed cycle of chemotherapy and radiation, presenting to the ED from oncology suite s/p hydration day, for continued hypotension despite 2L IVF and magnesium repletion. Patient reports decreased PO intake becasue when he gets up from sitting he feelings lightheaded. Denies fever, chills, new or worsening cough, SOB, abdominal pain, nausea/vomiting, diarrhea Onset (ago): hour(s) Related Data Home Medications Medication Instructions Recorded Confirmed bupropion HCl 150 mg tablet,12 hr 1 tab PO BID 01/17/21 03/12/22 sustained-release (Wellbutrin SR) hydrochlorothiazide 25 mg tablet 1 tab PO DAILY 01/17/21 03/12/22 amlodipine 5 mg tablet 1 tab PO DAILY 12/23/21 03/12/22 aspirin 81 mg tablet,delayed 1 tab PO DAILY 12/23/21 03/12/22 release metoprolol succinate 100 mg 1 tab PO DAILY 12/23/21 03/12/22 tablet,extended release 24 hr trazodone 100 mg tablet 1 tab PO BEDTIME 03/12/22 03/12/22 Previous Rx's Medication Instructions Recorded folic acid 1 mg tablet 1 mg PO DAILY #60 tabs 07/10/21 Allergies Allergy/AdvReac Type Severity Reaction Status Date / Time No Known Allergies Allergy Unknown UN Verified 12/12/21 10:30 Review of Systems Review of Systems: Constitutional: No Fever, No Chills, No Night Sweats, + Fatigue, + Malaise ENT/Mouth: No Ear Pain, No Nasal Congestion, No sore throat, No Rhinorrhea, No Swallowing Difficulty Eyes: No Eye Pain, No Swelling, No Vision Changes Cardiovascular: No Chest Pain, + chronic SOB, No Dyspnea on Exertion, No Orthopnea, No Edema, No Palpitations Respiratory: + chronic Cough, No Sputum, No Wheezing, No Smoke Exposure, No Dyspnea Gastrointestinal: No Nausea, No Vomiting, No Diarrhea, No Constipation, No Abdominal pain Genitourinary: No Dysuria, No Urinary Frequency, No Hematuria, No Urinary Incontinence/retention, No Flank Pain Musculoskeletal: No joint pain, No Myalgias, No Joint Swelling Skin: No Skin Lesions, No rash Neuro: No Weakness, No Numbness, No Paresthesias, No Loss of Consciousness, + lightheaded, No Headache Yes all other systems are reviewed and are negative Constitutional: Constitutional: Reports as per [facility] Past Medical History Attestation statement: The following information was validated with the patient. Medical History Abnormal PET scan of lung Afib Anemia Colitis Constipation COPD (chronic obstructive pulmonary disease) Depression Diverticula of intestine Gilbert's syndrome Hypertension Nicotine dependence, cigarettes, uncomplicated Non-small cell lung cancer (~2020) Obesity (BMI 35.0-39.9 without comorbidity) Obstructive sleep apnea Opacity of lung on imaging study Surgical History History of colonoscopy History of ileostomy (~2021) History of lobectomy of lung (~2020) Family History Family History Father Colon cancer Mother Diabetes Social History Social History Household Members: Spouse Housing: Apartment Are you a primary critical care nurse specialist to a significant other at home: No Do you presently have visiting nurse or other home services: No Alcohol intake: never Patient Tobacco Use Status: Former Tobacco user Tobacco use type: Cigarette Cigarette Packs Per Day: 0.34 Years Smoked: 30 e-Cigarette/Vaping Use: Currently Using Second Hand Smoke Exposure: No Advance Directives: Yes Advance Directives on File: Yes Advance Directives Date on File: 11/18/21 service: No Current occupational status: employed Current occupation: Works in [employer] department at [employer] Physical Exam ED Vital Signs: Vital Signs - 24 hr 03/12/22 14:46 03/12/22 15:32 03/12/22 15:56 Temperature 98.3 F 97.9 F 98.7 F Pulse Rate 79 86 72 Respiratory Rate 18 13 16 Blood Pressure 96/68 98/64 97/63 Pulse Oximetry 100 99 98 Oxygen Delivery Method Room Air Room Air Room Air 03/12/22 16:10 03/12/22 16:11 03/12/22 16:11 Temperature Pulse Rate 75 75 102 H Respiratory Rate Blood Pressure 99/54 L 85/54 L 84/44 L Pulse Oximetry Oxygen Delivery Method BMI result Body Mass Index 37.6 Const General: cooperative, healthy appearing and no acute distress Orientation/consciousness: patient oriented x3 Limitations: no limitations HENMT Head: Yes normal to inspection and Yes atraumatic Ears: hearing grossly normal bilaterally General nose exam: Normal external nose present Face and sinus: Yes normal facial exam Eyes General: appearance normal, both eyes and all related structures EOM: EOMs intact bilaterally Neck Neck: Yes normal visual inspection and Yes no meningeal signs Resp Effort & Inspection: normal respiratory effort and no respiratory distress Auscultation: clear to auscultation bilaterally, no rales, no rhonchi and no wheezes Cardio Rate: regular rate Heart sounds: S1 normal heart sound present and S2 normal heart sound present GI Other: Old surgical scars noted. Ostomy in place to RLQ Inspection: Yes normal to inspection Palpation (GI): Soft to palpation, nontender, no guarding and not rigid General: Yes no CVA tenderness Back/Spine/Pelvis Back: no CVA tenderness Skin Rashes: no rashes Wounds: no wounds Neuro General: patient oriented x3, tone normal, moves all extremities, no meningeal signs and no focal motor deficits Gait exam (Neuro): Normal gait present Extrem General: Yes normal to inspection and Yes no pedal edema Course Course Course Narrative: -orthostatic vital signs positive with increase in heart rate and decrease in diastolic BP -renal function with mild improvement after IVF, still higher than baseline -1718--patient is still hypotensive 90s over 60s after total 3L IVF. Orthostatics were positive. Plan to admit for further management Medical Decision Making [facility] Narrative Medical decision making narrative: 56 yo male with hx of A.fib, JAMIE, COPD, UTI, s/p RUL lobectomy and mediastinal lymphadenactomy 05/2021 for lung cancer post operatively his course was complicated by diverticulitis with colovesicular fistula with surgery, just completed cycle of chemotherapy and radiation, presenting to the ED from oncology suite s/p hydration day, for continued hypotension despite 2L IVF and magnesium repletion. On exam hypotensive, NAD/nontoxic-appearing, physical exam as above. Concern for dehydration vs metabolic abnormalities. Rule out infectious etiology. Low suspicion for severe sepsis Labs from earlier this morning prior to intervention with noted MOISES on CKD with a BUN of 81 and creatinine of 3.13. Magnesium was low at 1.4 Plan: EKG, repeat labs, UA, IVF, re-evaluate, anticipate admission Medical Records Medical records reviewed: Yes I reviewed the patient's medical records. Lab Data Lab results reviewed: Yes I reviewed the patient's lab results. Result diagrams: 03/12/22 16:23 03/12/22 16:23 Labs: Lab Results 03/12/22 03/12/22 03/12/22 Range/Units 16: 16: 16:23 WBC 2.2 L (4.8-10.8) X10*3/uL RBC 2.35 L (4.60-5.80) X10*6/uL Hgb 8.4 L (14.0-18.0) g/dl Hct 23.0 L (42.0-52.0) % MCV 97.9 (80.0-98.0) fL MCH 35.7 H (27.0-33.0) pg MCHC 36.5 H (31.0-36.0) g/dl RDW 17.5 H (11.0-16.0) % Plt Count 142 L (160-400) X10*3/uL MPV 9.9 (9.4-12.4) fL Immature Gran % (Auto) 0.9 H (0.0-0.4) % Neut % (Auto) 65.7 (45-73) % Lymph % (Auto) 26.6 (20-40) % [place] % (Auto) 4.5 (2-11) % Eos % (Auto) 1.8 (0-4) % Baso % (Auto) 0.5 (0-2) % Lymph # (Auto) 0.6 L (1.2-4.9) X10*3/uL [place] # (Auto) 0.1 (0.1-1.2) X10*3/uL Eos # (Auto) 0.0 (0.0-0.4) X10*3/uL Baso # (Auto) 0.0 (0.0-0.2) X10*3/uL Abs Immat Gran (auto) 0.02 (0.00-0.03) X10*3/uL Absolute Neuts (auto) 1.5 L (2.0-8.3) x10*3/uL Absolute Nucleated RBC 0.000 (0.0-0.012) X10*3/uL Nucleated RBC % (auto) 0.0 (0.0-0.2) /100WBC Sodium 139 (135-145) mmol/L Potassium 3.3 (3.3-5.1) mmol/L Chloride 102 (96-108) mmol/L Carbon Dioxide 23 (22-29) mmol/L Anion Gap 17 (12-20) BUN 74 H (9-16) mg/dL Creatinine 2.59 H (0.5-1.4) mg/dL Estim Creat Clear Calc 40.4 Estimated GFR 26 Random Glucose 126 H (60-115) mg/dL Calcium 8.4 D (8.4-10.2) mg/dL Magnesium 1.6 (1.6-2.6) mg/dL Total Bilirubin 0.8 (0.0-1.0) mg/dL Direct Bilirubin 0.3 (0.0-0.5) mg/dL AST 20 (5-37) U/L ALT 22 (0-40) U/L Alkaline Phosphatase 60 (39-117) U/L Total Protein 6.8 (6.5-8.0) g/dL Albumin 4.0 (3.5-5.0) g/dL Urine Color Urine Appearance Urine pH (5.0-9.0) Ur Specific [place] (1.005-1.025) Urine Protein (Neg-Trace) mg/dL Urine Glucose (UA) (Negative) mg/dL Urine Ketones (Negative) mg/dL Urine Blood (Negative) Urine Nitrite (Negative) Ur Leukocyte Esterase (Negative) COVID-19 ([facility]) Negative (Negative) COVID-19 Clin Com See Note 03/12/22 Range/Units 16:51 WBC (4.8-10.8) X10*3/uL RBC (4.60-5.80) X10*6/uL Hgb (14.0-18.0) g/dl Hct (42.0-52.0) % MCV (80.0-98.0) fL MCH (27.0-33.0) pg MCHC (31.0-36.0) g/dl RDW (11.0-16.0) % Plt Count (160-400) X10*3/uL MPV (9.4-12.4) fL Immature Gran % (Auto) (0.0-0.4) % Neut % (Auto) (45-73) % Lymph % (Auto) (20-40) % [place] % (Auto) (2-11) % Eos % (Auto) (0-4) % Baso % (Auto) (0-2) % Lymph # (Auto) (1.2-4.9) X10*3/uL [place] # (Auto) (0.1-1.2) X10*3/uL Eos # (Auto) (0.0-0.4) X10*3/uL Baso # (Auto) (0.0-0.2) X10*3/uL Abs Immat Gran (auto) (0.00-0.03) X10*3/uL Absolute Neuts (auto) (2.0-8.3) x10*3/uL Absolute Nucleated RBC (0.0-0.012) X10*3/uL Nucleated RBC % (auto) (0.0-0.2) /100WBC Sodium (135-145) mmol/L Potassium (3.3-5.1) mmol/L Chloride (96-108) mmol/L Carbon Dioxide (22-29) mmol/L Anion Gap (12-20) BUN (9-16) mg/dL Creatinine (0.5-1.4) mg/dL Estim Creat Clear Calc Estimated GFR Random Glucose (60-115) mg/dL Calcium (8.4-10.2) mg/dL Magnesium (1.6-2.6) mg/dL Total Bilirubin (0.0-1.0) mg/dL Direct Bilirubin (0.0-0.5) mg/dL AST (5-37) U/L ALT (0-40) U/L Alkaline Phosphatase (39-117) U/L Total Protein (6.5-8.0) g/dL Albumin (3.5-5.0) g/dL Urine Color Yellow Urine Appearance Clear Urine pH 5.0 (5.0-9.0) Ur Specific [place] 1.015 (1.005-1.025) Urine Protein Negative (Neg-Trace) mg/dL Urine Glucose (UA) Negative (Negative) mg/dL Urine Ketones Negative (Negative) mg/dL Urine Blood Negative (Negative) Urine Nitrite Negative (Negative) Ur Leukocyte Esterase Negative (Negative) COVID-19 ([facility]) (Negative) COVID-19 Clin Com ECG Data Attestation: I personally reviewed and interpreted this ECG as follows: Prior ECG tracings: available for review Interpretation: EKG showing a flutter with variable AV block at a rate of 81. QTC 437. No STEMI. Discharge Plan Discharge Clinical Impression: Acute kidney injury superimposed on CKD, Hypomagnesemia, Orthostasis Patient Disposition: Admitted As Inpatient
[2022-03-12] MEDS: 0.9 % Sodium Chloride 1,000 ML 999 ML IV (15:30)
[2022-03-12 16:49] LABS: Alanine Aminotransferase 22 U/L (0-40); Alkaline Phosphatase 60 U/L (39-117); Anion Gap 17 (12-20); Aspartate Amino Transferase 20 U/L (5-37); Bilirubin Direct 0.3 mg/dL (0.0-0.5); Bilirubin Total 0.8 mg/dL (0.0-1.0); Blood Urea Nitrogen 74 mg/dL (9-16); Calcium 8.4 mg/dL (8.4-10.2); Carbon Dioxide 23 mmol/L (22-29); Chloride 102 mmol/L (96-108); Creatinine Clr Calc Pharmacy 40.4; Estimated Glomerular Filt Rate 26; Glucose Random 126 mg/dL (60-115); Magnesium 1.6 mg/dL (1.6-2.6); Potassium 3.3 mmol/L (3.3-5.1); Sodium 139 mmol/L (135-145); Total Protein 6.8 g/dL (6.5-8.0)
--- NOTE | 2022-03-12 16:51 | PHA.MEDREC ---
Pharmacy Consult ? Medication Reconciliation Pharmacy has completed the medication reconciliation. Patient confirmed medications. Reports no medications were taking today. Rj LinkD
[2022-03-12 16:52] LABS: COVID-19 Test Negative (Negative); IDNOW Serial# 16C4AD1C
[2022-03-12 16:59] LABS: Basophils Percent Auto 0.5 % (0-2); Eosinophils Percent Auto 1.8 % (0-4); Hemoglobin 8.4 g/dl (14.0-18.0); Imm Gran Abs Auto 0.02 X10*3/uL (0.00-0.03); Imm Gran Pct Auto 0.9 % (0.0-0.4); Lymphocytes Absolute Auto 0.6 X10*3/uL (1.2-4.9); Lymphocytes Percent Auto 26.6 % (20-40); MANUAL DIFF FLAG SCAN; Mean Corpuscular HGB Conc 36.5 g/dl (31.0-36.0); Mean Corpuscular Hemoglobin 35.7 pg (27.0-33.0); Mean Corpuscular Volume 97.9 fL (80.0-98.0); Mean Platelet Volume 9.9 fL (9.4-12.4); Monocytes Absolute Auto 0.1 X10*3/uL (0.1-1.2); Monocytes Percent Auto 4.5 % (2-11); Neutrophils Absolute Auto 1.5 x10*3/uL (2.0-8.3); Neutrophils Percent Auto 65.7 % (45-73); Platelet Count 142 X10*3/uL (160-400); Red Blood Count 2.35 X10*6/uL (4.60-5.80); Red Cell Distribution Width 17.5 % (11.0-16.0); SCAN SMEAR FLAG 1; White Blood Count 2.2 X10*3/uL (4.8-10.8)
[2022-03-12 17:03] LABS: Appearance Urine Clear; Color Urine Yellow; Glucose Urine UA Negative (Negative); Leukocyte Esterase Urine Negative (Negative); Nitrite Urine Negative (Negative); Specific Gravity - Urine 1.015 (1.005-1.025); Urine Blood Negative (Negative); Urine Ketones Negative (Negative); Urine Protein Negative (Neg-Trace)
[2022-03-12 17:29] LABS: SLIDE REVIEW VERIFIED
--- NOTE | 2022-03-12 17:44 | PC.NURSE ---
pt a&ox3, vss, denies any pain at this time, resting comfortably, pending admission orders.
--- NOTE | 2022-03-12 18:08 | PM.IMHP ---
History of Present Illness Date of Service: 03/12/22 Chief Complaint: Dizziness and low blood pressure 56 yo male with hx of A.fib not on anticoagulation, CKD 2, JAMIE, COPD, UTI, s/p RUL lobectomy and mediastinal lymphadenactomy 05/2021 for lung cancer post operatively his course was complicated by diverticulitis with colovesicular fistula s/p colectomy/colostomy. He has been on chemo and radiation and , just completed cycle of chemotherapy last week and and radiation this week. He has been feeling dizzy at home and was seen in the oncology clinic today for hydration and was noted to be hypotensive. He received 2 liters and magnesium repletion and was subsequently sent to the ED for further evaluation. He has received a 3rd liter of fluid in the ED. On presentation, his SBP was in 80s, lowest 82 following the fluid it has steadily improved and so is BP most recent vitals as below He denies fever, shortness of breath, no chest pain, no rash, no diarrhea, no covid synmptoms. UA is negative No other stigmata of infection He is uptodate on his covid vaccine Review of Systems Review of Systems: Gen: no fever Resp: no sob, no cough CV: no chest, no HERNANDEZ, no leg edema GI: No n/v, no abd pain Neuro: No confusion Yes all other systems are reviewed and are negative [facility] Medical History Abnormal PET scan of lung Afib Anemia Colitis Constipation COPD (chronic obstructive pulmonary disease) Depression Diverticula of intestine Gilbert's syndrome Hypertension Nicotine dependence, cigarettes, uncomplicated Non-small cell lung cancer (~2020) Obesity (BMI 35.0-39.9 without comorbidity) Obstructive sleep apnea Opacity of lung on imaging study Family History Father Colon cancer Mother Diabetes Surgical History History of colonoscopy History of ileostomy (~2021) History of lobectomy of lung (~2020) Social History Household Members: Spouse Housing: Apartment Are you a primary managed care analyst to a significant other at home: No Do you presently have visiting nurse or other home services: No Alcohol intake: never Patient Tobacco Use Status: Former Tobacco user Tobacco use type: Cigarette Cigarette Packs Per Day: 0.34 Years Smoked: 30 e-Cigarette/Vaping Use: Currently Using Second Hand Smoke Exposure: No Advance Directives: Yes Advance Directives on File: Yes Advance Directives Date on File: 11/18/21 service: No Current occupational status: employed Current occupation: Works in [employer] at [employer] Meds Allergies Allergy/AdvReac Type Severity Reaction Status Date / Time No Known Allergies Allergy Unknown UN Verified 12/12/21 10:30 Active Medications: Current Medications Pharmacy Consult (Consult Rx Perform Med Rec) 1 each MISCELLANE ONCE PRN PRN Reason: Consult order Home Medications Medication Instructions Recorded Confirmed Last Taken Type bupropion HCl 150 mg tablet,12 hr 1 tab PO BID 01/17/21 03/12/22 12/22/21 History sustained-release (Wellbutrin SR) hydrochlorothiazide 25 mg tablet 1 tab PO DAILY 01/17/21 03/12/22 12/22/21 History amlodipine 5 mg tablet 1 tab PO DAILY 12/23/21 03/12/22 12/22/21 History aspirin 81 mg tablet,delayed 1 tab PO DAILY 12/23/21 03/12/22 12/22/21 History release metoprolol succinate 100 mg 1 tab PO DAILY 12/23/21 03/12/22 12/22/21 History tablet,extended release 24 hr trazodone 100 mg tablet 1 tab PO BEDTIME 03/12/22 03/12/22 Unknown History Physical Exam Vital Signs and Narrative: Vital Signs: Last Vital Signs Temp 98.7 F 03/12/22 15:56 Pulse 83 03/12/22 17:44 Resp 14 03/12/22 17:44 BP 99/63 03/12/22 17:44 Pulse Ox 99 03/12/22 17:44 O2 Del Method 03/12/22 17:44 BMI result Body Mass Index 37.6 Const: Other: Constitutional: Alert, in no distress, overweight. Mental Status: Oriented to person, place and time. Eyes: Pupils are equal, round and reactive to light. Ear, Nose and Throat: Oropharynx clear, mucous membranes moist. Ears and nose without eformities. Trachea midline. Respiratory: Clear to auscultation. No wheezing, rales or rhonchi. Cardiovascular: S1 S2 regular. No murmurs, rubs or gallops. Gastrointestinal: Abdomen soft, non-tender, non-distended. Normal bowel sounds.? colostomy functioning fine Neurologic: Cranial nerves II-XII grossly intact. No focal neurological deficits. Moves all extremities spontaneously.? Skin: No rashes or lesions.? Musculoskeletal: No cyanosis or clubbing. Psychiatric: Normal mood and affect? Results Labs CBC and Chem 7: 03/12/22 16:23 03/12/22 19:44 Assessment and Plan (1) Acute kidney injury superimposed on CKD: Status: Acute (2) Hypomagnesemia: Status: Acute (3) Dehydration: Status: Acute Plan 56 yo male with hx of A.fib not on anticoagulation, CKD 2, JAMIE, COPD, UTI, s/p RUL lobectomy and mediastinal lymphadenactomy 05/2021 for lung cancer post operatively his course was complicated by diverticulitis with colovesicular fistula s/p colectomy/colostomy in september 2021. He has been on chemo and radiation and , just completed cycle of chemotherapy last week and and radiation this week. He has been feeling dizzy at home and was seen in the oncology clinic today for hydration and was noted to be hypotensive and send to the ED for further evaluation following persistent hypotension after 2 liters of fluid, he has MOISES with Creat 3.31 baseline 2.. 1/ MOISES on [id number]--[id number] from pre renal from dehydration post chemo 2/Hypotenison--NOT due to sepsis, rather due to dehdration, decrease oral intake related to chemo -BP and Creatine is already improving with the fluid givven -will continue Normal saline overnight and repeat labs in the morning -no stigmata of infection at this time and will thus hold of further infectious work up -Hold BP meds and if doing better in the morning discharge 3/Pancytopenia--d/t chronic disease, malignancy and chemo--monitor, no inidcation for blood products at this time 4/HTN--hold Norvasc and HCTZ 5/ I am ancipate quick recover and home in next day, hold of Lovenox/heparin dvt prophylaxis but if stays beyond tomorrow will consider 6/ Full code, Plan discussed with patient and signficant other at bedside smoking cessation discussed Quality Stroke Does the patient have a stroke diagnosis?: No VTE Prior VTE?: No VTE Risk Level:: Medical - moderate - high VTE Device Contraindication: Treatment Not Tolerated VTE Drug Contraindication: Treatment Not Indicated
--- NOTE | 2022-03-12 19:27 | PC.NURSE ---
PATIENT WAS GIVEN DINNER ,WAS NOT ABLE TO EAT IT ,I OFFER HIM ICE CREAM ,JUICE AND A PICTURE OF WATER ,WHICH HE ACCEPTED AND ATE THE ICE CREAM AND DRANK THE JUICE .
[2022-03-12 20:06] LABS: Anion Gap 15 (12-20); Blood Urea Nitrogen 69 mg/dL (9-16); Calcium 8.4 mg/dL (8.4-10.2); Carbon Dioxide 26 mmol/L (22-29); Chloride 102 mmol/L (96-108); Creatinine Clr Calc Pharmacy 39.8; Estimated Glomerular Filt Rate 25; Glucose Random 122 mg/dL (60-115); Potassium 3.4 mmol/L (3.3-5.1); Sodium 140 mmol/L (135-145)
[2022-03-12] MEDS: 0.9 % Sodium Chloride 1,000 ML 150 ML IVCONT (20:53)
--- NOTE | 2022-03-12 20:53 | PC.NURSE ---
pt a&ox3, vss, NS running at 150ml/hr, denies any pain at this time. no new orders noted.
[2022-03-13 02:36] VITALS: BP 98/52; PULSE 80; RESP 17; O2SAT 96
[2022-03-13] MEDS: 0.9 % Sodium Chloride 1,000 ML 150 ML IVCONT (04:20)
[2022-03-13 07:21] VITALS: BP 119/70; PULSE 74; RESP 16; O2SAT 99
--- NOTE | 2022-03-13 09:04 | P.DS_ITS ---
DS: Providers Provider Date of Service: 03/13/22 Date of admission: 03/12/22 19:25 Primary care physician: Deepika Christopher MD DS: Diagnosis Discharge Diagnosis (1) Acute kidney injury superimposed on CKD: Status: Acute (2) Hypomagnesemia: Status: Acute (3) Dehydration: Status: Acute DS: Summary Hospital Course Hospital Course: 56 yo male with hx of A.fib not on anticoagulation, CKD 2, JAMIE, COPD, UTI, s/p RUL lobectomy and mediastinal lymphadenactomy 05/2021 for lung cancer post operatively his course was complicated by diverticulitis with colovesicular fistula s/p colectomy/colostomy. He has been on chemo and radiation and , just completed cycle of chemotherapy last week and and radiation this week. He has been feeling dizzy at home and was seen in the oncology clinic today for hydration and was noted to be hypotensive. He received 2 liters and magnesium repletion and was subsequently sent to the ED for further evaluation. He has received a 3rd liter of fluid in the ED.? On presentation, his SBP was in 80s, lowest 82 following the fluid it has steadily improved and so is BP most recent vitals as below He denies fever, shortness of breath, no chest pain, no rash, no diarrhea, no covid synmptoms. UA is negative No other stigmata of infection He is uptodate on his covid vaccine. Hospital course: Patient was admitted overnight for hydration for Agnes, dehydration leading to low blood pressure and dizziness. He is now feeling better with no more dizziness upon ambulation, renal function has improved and near baseline, he is tolerating diet, ileostomy is working fine. He takes multiple BP meds including Norvasc 5 daily, HCTZ 25 daily and Toprolol XL 100. His HR is within normal, BP 119/70. At this point will hold HCTZ and DC norvasc and reduce Toprol to 50 mg and should follow up with PCP within a week for further BP check and medication adjustment as needed. He is very comfortable with plan to go home. Final diagnoses: Acute dehydration Acute kidney injury HypOtension Dizziness Pancytopenia Time Spent with Patient Time attestation: Total time spent providing and/or coordinating discharge services: Discharge coordination time: Greater than 30 minutes Quality: Safe Use of Opioids Does Pt have an Active Cancer Diagnosis on the Problem List?: No Quality: Stroke Does the patient have a stroke diagnosis?: No Physical Exam Vital Signs: Vital Signs: Last Vital Signs Temp 98.0 F 03/12/22 21:02 Pulse 74 03/13/22 07:21 Resp 16 03/13/22 07:21 BP 119/70 03/13/22 07:21 Pulse Ox 99 03/13/22 07:21 O2 Del Method 03/13/22 07:21 BMI result Body Mass Index 37.6 DS: Data Data Completed and Pending Labs on day of discharge: Laboratory Results - last 24 hr 03/12/22 03/12/22 03/12/22 16:22 16:23 16:23 WBC 2.2 L RBC 2.35 L Hgb 8.4 L Hct 23.0 L MCV 97.9 MCH 35.7 H MCHC 36.5 H RDW 17.5 H Plt Count 142 L MPV 9.9 Immature Gran % (Auto) 0.9 H Neut % (Auto) 65.7 Lymph % (Auto) 26.6 [place] % (Auto) 4.5 Eos % (Auto) 1.8 Baso % (Auto) 0.5 Lymph # (Auto) 0.[address] [place] # (Auto) 0.1 Eos # (Auto) 0.0 Baso # (Auto) 0.0 Abs Immat Gran (auto) 0.02 Absolute Neuts (auto) 1.5 L Absolute Nucleated RBC 0.000 Nucleated RBC % (auto) 0.0 Smear Tech's Comments VERIFIED Sodium 139 Potassium 3.3 Chloride 102 Carbon Dioxide 23 Anion Gap 17 BUN 74 H Creatinine 2.59 H Estim Creat Clear Calc 40.4 Estimated GFR 26 Random Glucose 126 H Calcium 8.4 D Magnesium 1.6 Total Bilirubin 0.8 Direct Bilirubin 0.3 AST 20 ALT 22 Alkaline Phosphatase 60 Total Protein 6.8 Albumin 4.0 Urine Color Urine Appearance Urine pH Ur Specific [place] Urine Protein Urine Glucose (UA) Urine Ketones Urine Blood Urine Nitrite Ur Leukocyte Esterase COVID-19 ([facility]) Negative COVID-19 Clin Com See Note 03/12/22 03/12/22 16:51 19:44 WBC RBC Hgb Hct MCV MCH MCHC RDW Plt Count MPV Immature Gran % (Auto) Neut % (Auto) Lymph % (Auto) [place] % (Auto) Eos % (Auto) Baso % (Auto) Lymph # (Auto) [place] # (Auto) Eos # (Auto) Baso # (Auto) Abs Immat Gran (auto) Absolute Neuts (auto) Absolute Nucleated RBC Nucleated RBC % (auto) Smear Tech's Comments Sodium 140 Potassium 3.4 Chloride 102 Carbon Dioxide 26 Anion Gap 15 BUN 69 H Creatinine 2.63 H Estim Creat Clear Calc 39.8 Estimated GFR 25 Random Glucose 122 H Calcium 8.4 Magnesium Total Bilirubin Direct Bilirubin AST ALT Alkaline Phosphatase Total Protein Albumin Urine Color Yellow Urine Appearance Clear Urine pH 5.0 Ur Specific [place] 1.015 Urine Protein Negative Urine Glucose (UA) Negative Urine Ketones Negative Urine Blood Negative Urine Nitrite Negative Ur Leukocyte Esterase Negative COVID-19 ([facility]) COVID-19 Clin Com Discharge Plan Discharge Anticipated Discharge Date/Time: 03/13/22 08:59 Patient Disposition: Home, Self-Care Discharge Diagnosis: Acute Kidney injury, Dehydration, Dizziness Referrals: Deepika Christopher MD [Primary Care Provider] - 1 Week Discharge Medications: New metoprolol succinate [Toprol XL] 50 mg tablet extended release 24 hr 50 mg PO DAILY Qty: 30 0RF Continued bupropion HCl [Wellbutrin SR] 150 mg tablet sustained-release 12 hr 1 tab PO BID folic acid 1 mg Tablet 1 mg PO DAILY Qty: 60 3RF aspirin 81 mg tablet,delayed release (DR/EC) 1 tab PO DAILY trazodone 100 mg tablet 1 tab PO BEDTIME Discontinued hydrochlorothiazide 25 mg tablet 1 tab PO DAILY metoprolol succinate 100 mg tablet extended release 24 hr 1 tab PO DAILY amlodipine 5 mg tablet 1 tab PO DAILY Discharge Orders: Discharge Order (Routine); Ordered 03/13/22 Ordered By: Moose Somers Diet: Advance to usual diet Activity on Discharge: As tolerated Stand Alone Forms: Patient Portal Discharge page Care Plan Goals: full recovery from dehydration, renal failure, and dizziness Health Concerns: renal failure, dehydration, low blood pressure Plan of Treatment: as above Assessment: as above
--- NOTE | 2022-03-13 09:14 | MHC.CM.PN ---
ppt dcd home no skilled servcies ordered by
[2022-03-13 10:00] LABS: Anion Gap 16 (12-20); Blood Urea Nitrogen 61 mg/dL (9-16); Calcium 8.6 mg/dL (8.4-10.2); Carbon Dioxide 27 mmol/L (22-29); Chloride 102 mmol/L (96-108); Creatinine Clr Calc Pharmacy 42.9; Estimated Glomerular Filt Rate 28; Glucose Random 91 mg/dL (60-115); Potassium 3.6 mmol/L (3.3-5.1); Sodium 141 mmol/L (135-145)
[2022-03-13] MEDS: Metoprolol Succinate ER 50 MG TAB.ER.24H PO (10:11)
[2022-03-13 10:12] VITALS: BP 110/64; PULSE 88
== END 2022-03-13 10:20 | disposition home or self-care (01) ==
LOC: HO.ED 17:20 → HO.EDOVER 19:26
PROVIDERS: Physician Assistant; Admitting Provider Internal Medicine; Emergency Provider Emergency Medicine Emergency Medical Services; PCP Student in an Organized Health Care Education/Training Program; Visit Provider Internal Medicine
DX: N17.9 Acute kidney failure, unspecified (principal); N18.9 Chronic kidney disease, unspecified; E86.0 Dehydration; E83.42 Hypomagnesemia; R42 Dizziness and giddiness; G47.33 Obstructive sleep apnea (adult) (pediatric); Z20.822 Contact with and (suspected) exposure to COVID-19; Z79.899 Other long term (current) drug therapy
CPT/HCPCS: 36415; 80048; 80076; 81003; 83735; 85025; 87635; 93005; 96360; 96361; 99219; 99285

== ENCOUNTER 2022-03-24 14:48 | Outpatient (REF) | payer MEDICAID, SELFPAY ==
--- NOTE | ~2022-03-24 | CT_ITS ---
EXAMINATION: CT CHEST WITHOUT CONTRAST CLINICAL INFORMATION: Follow-up lung cancer. COMPARISON: Previous chest x-ray most recent December [address] most recent November 2021 TECHNIQUE: Multidetector volumetric CT imaging of the chest was done. Axial MIP volume rendering provided. Sagittal and coronal reformatted images were obtained. This CT examination was performed using dose optimization techniques as appropriate, variously including the following: *Automated exposure control *Adjustment of mA and/or kV according to patient size (this includes techniques or standardized protocols for targeted exams where dose is matched to indication/reason for exam; i.e. extremities or head) *Use of iterative reconstruction technique DLP: 281 mGy-cm FINDINGS: LUNGS: There is evidence of emphysema. The previously identified semisolid 1 x 2.3 cm nodule in the left lower lobe on November 2021 exam is no longer seen. There are increased peripheral reticular markings seen throughout the lungs. Appearance is questionable for interstitial lung disease. The lungs are otherwise clear. There are postsurgical changes following right upper lobe lobectomy. MEDIASTINUM: The heart is enlarged. There is no pericardial effusion. There is mild coronary artery calcification. The thoracic aorta is upper normal in size. There are no enlarged hilar or mediastinal lymph nodes. Previously identified pneumomediastinum is no longer seen. CORONARY ARTERY CALCIFICATION: Mild PLEURA: There is no pleural effusion. No pleural mass or thickening. AXILLA: Small bilateral axillary lymph nodes. No enlarged lymph nodes or chest wall mass. Subcutaneous emphysema is no longer seen. UPPER ABDOMEN: Mild diverticulosis of the colon. Small calcifications in the pancreas suggestive of evidence of chronic pancreatitis. OSSEOUS STRUCTURES: Degenerative changes of the spine. CT/CT chest wo IV con IMPRESSION: Postoperative changes following right upper lobe lobectomy. Previously identified left lower lobe nodule on November 2021 exam is no longer seen. Increased interstitial peripheral markings questionable for interstitial lung disease. Resolved pneumomediastinum and subcutaneous emphysema. Fleischner guidelines were followed.
== END 2022-03-24 14:49 | disposition home or self-care (01) ==
LOC: HO.CT 14:48
PROVIDERS: PCP Internal Medicine; Visit Provider Internal Medicine Medical Oncology
DX: C34.90 Malignant neoplasm of unspecified part of unspecified bronchus or lung (principal)
CPT/HCPCS: 71250

== ENCOUNTER 2022-04-28 08:56 | Outpatient (REF) | payer MEDICAID, SELFPAY ==
--- NOTE | ~2022-04-28 | PE_ITS ---
EXAMINATION: Fluorine-18 FDG PET/CT Scan CLINICAL INDICATION: Subsequent treatment management. Adenocarcinoma of lung, restaging. PROCEDURE: 69 minutes following the intravenous administration of 18.1 mCi of fluorine 18 FDG, images from the base of the skull to the mid thighs were obtained using a combined PET/CT scanner with CT scan based attenuation correction. No oral contrast was administered. No intravenous contrast was administered. Transverse, coronal, sagittal, and volume reconstruction projections were obtained. The patient's blood glucose as determined by a finger stick, was 86 mg/dl immediately prior to injection. Total CT exam dose-length product 1230.61 mGy-cm * These CT images were obtained using dose optimization techniques as appropriate, variously including the following: Automated exposure control * Adjustment of mA and/or kV according to patient size (this includes techniques or standardized protocols for targeted exams where dose is matched to indication/reason for exam; i.e. extremities or head) * Use of iterative reconstruction technique COMPARISON: The previous PET CT scans dated 11/18/2021 and 04/08/2021 are available for comparison. CT scan of the chest dated 03/24/2022 is also available for comparison. FINDINGS: (Slice numbers described in this report are numbered superiorly to inferiorly with slice #1 in the head) NECK AND VISUALIZED HEAD: No foci of abnormal FDG activity are noted. The distribution of FDG activity is physiological. There is no cervical lymphadenopathy. THORAX: The patient is status post right upper lobectomy. There are new FDG avid airspace opacities present posteriorly in the superior segment of the right lower lobe abutting the interlobar fissure. These were not present on the 03/24/2022 CT scan. No additional foci of abnormal FDG activity are present in the lung parenchyma. Some scarring or atelectasis is present in the lung bases bilaterally, more prominently on the left and in the lingula. A previously FDG avid right lower paratracheal lymph node is now subcentimeter in size and shows no abnormal FDG activity. There is weak FDG activity associated with some pleural fluid anterolaterally in the interlobar fissure, now showing SUVmax 2.4 versus SUVmax 3.1 on the prior 11/18/[address] scan. This is in the region of a suture line and likely represents some mild postoperative inflammatory changes, with some improvement.. No additional foci of abnormal FDG activity are present in the lungs. There is now no mediastinal, supraclavicular, or axillary lymphadenopathy. There is an FDG avid cutaneous/subcutaneous focus in the posterolateral aspect of the left chest wall at the T11-T12 level showing SUVmax 6.4, slice 133/267 an corresponding to a soft tissue density measuring 1.8 x 0.8 cm in size on the CT images. This was smaller on the 03/24/2022 CT scan, measured in retrospect at approximately 1.5 x 0.8 cm and was not present on less recent prior studies. ABDOMEN AND PELVIS: No foci of abnormal FDG activity are present in the abdomen or pelvis. Mild FDG activity is present throughout the gastrointestinal tract without a suspicious focal component, likely physiological. Again noted are postsurgical changes in the rectosigmoid colon with no abnormal FDG activity associated with the suture lines. There is diverticulosis without evidence of diverticulitis. A right lower quadrant colostomy is in place unchanged from the prior study and a midline transverse colon suture line is noted, with no associated abnormal FDG activity. There is only minimal FDG activity associated with the midline periumbilical incision and this activity is less intense than on the prior 11/18/[address] scan. The liver, gallbladder, and spleen are unremarkable. The kidneys, adrenal glands and pancreas are unremarkable. There is no retroperitoneal, mesenteric, pelvic or inguinal lymphadenopathy. MUSCULOSKELETAL: No foci of abnormal FDG activity are present in the osseous structures. There are stable degenerative changes in the spine. There are no suspicious sclerotic or lytic lesions present. VASCULAR: Vascular calcifications including coronary are noted. PET/PET CT fusion skull to thigh IMPRESSION: 1. Opacities in the superior segment of the right lower lobe have developed since the 03/24/2022 CT scan and these are FDG avid. The rapid development and FDG avidity only suggest these are inflammatory in etiology. Clinical correlation is recommended. These may be better characterized with a repeat diagnostic CT scan of the chest, if clinically indicated. 2. Postsurgical changes from a right upper lobectomy, bowel surgery and placement of colostomy are noted. Minimal FDG activity associated with pleural fluid in the interlobar fissure laterally on the right is less intense than on the prior PET CT scan and likely represents resolving inflammatory changes. 3. There is been complete resolution of abnormal FDG activity associated with a right paratracheal mediastinal lymph node, suggesting a complete metabolic response to therapy of this focus. 4. A moderately intense FDG avid cutaneous/subcutaneous focus in the left posterolateral chest wall is present. While this may represent a focal inflammatory lesion, a cutaneous or subcutaneous malignancy may also be responsible for this finding. Clinical correlation is recommended. Excisional biopsy may be required to determine the etiology of this focus. 5. No additional abnormalities suspicious for other metastatic or malignant lesions are noted.
== END 2022-04-28 08:57 | disposition home or self-care (01) ==
LOC: HO.PET 08:56
PROVIDERS: Visit Provider Internal Medicine Medical Oncology
DX: Z13.89 Encounter for screening for other disorder (principal)

== ENCOUNTER → 2022-05-05 14:21 | Outpatient (BNVA) | payer MEDICAID, SELFPAY | PROVIDERS: PCP Internal Medicine; Visit Provider Internal Medicine Pulmonary Disease | DX: J44.9 Chronic obstructive pulmonary disease, unspecified (principal); R93.89 Abnormal findings on diagnostic imaging of other specified body structures | CPT/HCPCS: 99202 ==

== ENCOUNTER 2022-05-29 15:45 | Outpatient (REF) | payer MEDICAID, SELFPAY ==
--- NOTE | 2022-05-29 17:51 | PFT_ITS ---
FLOWS: FEV1 75% of predicted at 2.74 L, FVC 82% of predicted at 3.91 L. FEV1 to FVC ratio of 0.70. No bronchodilator response. LUNG VOLUMES: Total lung capacity 76% of predicted at 5.21 L. Residual volume 79% of predicted at 1.67 L. Slow vital capacity 75% of predicted at 3.55 L. Expiratory reserve volume 120% of predicted at 1.66 L. Diffusion capacity is moderately decreased, diffusion capacity adjust to being mildly decreased after correction to alveolar ventilation. In comparison to pulmonary function test from April of 2021, FEV1 has decreased by 1.77 L, FVC has decreased by 1.46 L, total lung capacity has decreased by 2.34 L, residual volume has decreased by 0.69 L, slow vital capacity has decreased by 1.65 L, expiratory reserve volume has decreased by 0.45 L, diffusion capacity has decreased by 10.72 mL/minute per minutes mmHg. IMPRESSION: Moderate restrictive ventilatory defect with no bronchodilator response. Decreased diffusion capacity suggests emphysema. MD LOLA Nichole/MODL / [id number]
== END 2022-05-29 15:46 | disposition home or self-care (01) ==
LOC: HO.RESP 15:45
PROVIDERS: PCP Internal Medicine; Visit Provider Internal Medicine Pulmonary Disease
DX: J44.9 Chronic obstructive pulmonary disease, unspecified (principal)
CPT/HCPCS: 94060; 94727; 94729

== ENCOUNTER 2022-06-30 15:51 | Outpatient (REF) | payer MEDICAID, SELFPAY ==
--- NOTE | ~2022-06-30 | CT_ITS ---
EXAMINATION: CT CHEST WITH CONTRAST CLINICAL INFORMATION: Follow-up lung cancer. COMPARISON: PET/CT 04/28/[address] chest 03/24/2022. TECHNIQUE: Multidetector volumetric CT imaging of the chest was obtained after the administration of 50 mL of Omnipaque 350 intravenous contrast without immediate adverse reactions. Axial MIP volume rendering provided. Sagittal and coronal reformatted images were obtained. This CT examination was performed using dose optimization techniques as appropriate, variously including the following: *Automated exposure control *Adjustment of mA and/or kV according to patient size (this includes techniques or standardized protocols for targeted exams where dose is matched to indication/reason for exam; i.e. extremities or head) *Use of iterative reconstruction technique DLP: 240 mGy-cm. 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 LUNGS: There is loss of right lung volume status post right upper lobectomy. There is paramediastinal parenchymal opacity with air bronchogram in the suprahilar region and posterior aspect of right superior segment, likely chronic scarring and/or atelectasis. Mild FDG activity seen on 04/28/2022 PET study but new since the last CT chest 03/24/2022. There is no new pulmonary nodule mass seen. There is subpleural fine reticular stranding in both lower lobes lingula and right middle lobe, likely postradiation changes or chronic scarring. MEDIASTINUM: Heart size and the great vessels are normal caliber. There is mild coronary artery calcification. Central trachea and the bronchi are widely patent. Thyroid lobes are somewhat symmetrical and normal. No abnormal-sized mediastinal or hilar lymphadenopathy seen. There is a prominent vessel extending from the left brachiocephalic vein along the superior mediastinum and emptying into the azygos vein. A question of narrowing of the distal left brachiocephalic vein is raised. There is no pericardial effusion. PLEURA: There is no pleural effusion. No pleural mass or thickening. AXILLA: Small shotty bilateral axillary lymph nodes seen. The chest wall is unremarkable. UPPER ABDOMEN: Visualized liver, spleen, pancreas and bilateral adrenal glands are unremarkable. OSSEOUS STRUCTURES: No aggressive lytic or sclerotic process seen. CT/CT chest w IV con IMPRESSION: Postsurgical changes right lung with loss of right lung volume and ipsilateral mediastinal shift. Since the last exam, there is airspace bronchogram and parenchymal opacity right upper lobe likely chronic scarring more solid posteriorly in the superior segment of the right upper lobe. Also visualized is fine interstitial prominence peripherally based in both lower lobes and lingula. No pulmonary nodule or abnormal mediastinal or hilar adenopathy seen. Suspect mild narrowing of the left distal brachiocephalic vein. Fleischner guidelines were followed.
[2022-06-30] MEDS: iohexoL 350 MG/ML 100 ML INFUS..BTL IV (17:11)
[2022-07-01 06:44] LABS: Creatinine POC 1.4 mg/dL (0.5-1.4); GFR POC 55
== END 2022-06-30 15:52 | disposition home or self-care (01) ==
LOC: HO.CT 15:51
PROVIDERS: PCP Internal Medicine; Visit Provider Internal Medicine Medical Oncology
DX: C34.90 Malignant neoplasm of unspecified part of unspecified bronchus or lung (principal)
CPT/HCPCS: 71260; 82565; Q9967

== ENCOUNTER → 2022-07-10 10:24 | Outpatient (BNVA) | payer MEDICAID, SELFPAY | PROVIDERS: PCP Internal Medicine; Visit Provider Surgery | DX: C34.90 Malignant neoplasm of unspecified part of unspecified bronchus or lung (principal) | CPT/HCPCS: 99212 ==

== ENCOUNTER 2022-07-17 14:12 | Outpatient (REF) | payer MEDICAID, SELFPAY ==
--- NOTE | ~2022-07-17 | US_ITS ---
EXAMINATION: US RETROPERITONEAL LIMITED (RENAL ONLY) CLINICAL INFORMATION: Acute kidney failure. Hypertension. COMPARISON: CT abdomen and pelvis 08/08/2021. MRI abdomen 04/15/2021. TECHNIQUE: Real-time imaging of the kidneys. FINDINGS: RIGHT KIDNEY: 12.3 x 5.3 x 5.1 cm (SAG x AP x TRV). The kidney is normal in size, contour, and echogenicity. Renal cortical thickness is normal. No focal parenchymal lesions or hydronephrosis. At the interpolar aspect, 1.1 cm and 4 mm nonobstructing calculi are seen, with twinkle artifact LEFT KIDNEY: 10.0 x 4.6 x 4.6 cm (SAG x AP x TRV). The kidney is normal in size, contour, and echogenicity. Renal cortical thickness is normal. No calculi or focal parenchymal lesions. No hydronephrosis. US/US renal BI IMPRESSION: There are nonobstructing right renal calculi. The examination is otherwise unremarkable.
[2022-07-17 14:30] LABS: MANUAL DIFF FLAG NO
[2022-07-17 14:57] LABS: Basophils Percent Auto 0.8 % (0-2); Eosinophils Absolute Auto 0.3 X10*3/uL (0.0-0.4); Eosinophils Percent Auto 6.2 % (0-4); Hematocrit 33.9 % (42.0-52.0); Hemoglobin 11.6 g/dl (14.0-18.0); Imm Gran Pct Auto 2.1 % (0.0-0.4); Lymphocytes Absolute Auto 0.8 X10*3/uL (1.2-4.9); Lymphocytes Percent Auto 16.4 % (20-40); Mean Corpuscular HGB Conc 34.2 g/dl (31.0-36.0); Mean Corpuscular Hemoglobin 32.5 pg (27.0-33.0); Mean Platelet Volume 8.8 fL (9.4-12.4); Monocytes Absolute Auto 0.6 X10*3/uL (0.1-1.2); Monocytes Percent Auto 11.6 % (2-11); Neutrophils Percent Auto 62.9 % (45-73); Platelet Count 176 X10*3/uL (160-400); Red Blood Count 3.57 X10*6/uL (4.60-5.80); Red Cell Distribution Width 13.9 % (11.0-16.0); White Blood Count 4.8 X10*3/uL (4.8-10.8)
[2022-07-17 15:45] LABS: Creatinine Urine 154.15 mg/dL; Protein/Creatinine Ratio, Ur 0.18 (<0.2); Total Protein Urine Random 27 mg/dL (<12)
[2022-07-17 15:46] LABS: Anion Gap 16 (12-20); Blood Urea Nitrogen 36 mg/dL (9-16); Calcium 9.8 mg/dL (8.4-10.2); Carbon Dioxide 26 mmol/L (22-29); Chloride 102 mmol/L (96-108); Estimated Glomerular Filt Rate 27; Potassium 4.1 mmol/L (3.3-5.1); Sodium 140 mmol/L (135-145); Uric Acid 10.3 mg/dL (3.4-7.0)
[2022-07-20 16:29] LABS: PTHI 55 pg/mL (16-77)
== END 2022-07-17 14:13 | disposition home or self-care (01) ==
LOC: HO.US 14:12
PROVIDERS: PCP Internal Medicine; Visit Provider Internal Medicine Nephrology
DX: N17.9 Acute kidney failure, unspecified (principal); I10 Essential (primary) hypertension
CPT/HCPCS: 36415; 76775; 80051; 82310; 82565; 83970; 84156; 84520; 84550; 85025

== ENCOUNTER → 2022-07-21 14:38 | Outpatient (BNVA) | payer MEDICAID, SELFPAY | PROVIDERS: PCP Internal Medicine; Visit Provider Internal Medicine Pulmonary Disease | DX: Z01.811 Encounter for preprocedural respiratory examination (principal); J44.9 Chronic obstructive pulmonary disease, unspecified; R05.9 Cough, unspecified; Z79.899 Other long term (current) drug therapy | CPT/HCPCS: 99212 ==

== ENCOUNTER 2022-12-25 08:27 | Outpatient (REF) | payer MEDICAID, SELFPAY ==
--- NOTE | ~2022-12-25 | CT_ITS ---
EXAMINATION: CT CHEST WITH CONTRAST CLINICAL INFORMATION: Follow-up lung cancer COMPARISON: Previous chest CT most recent June 2022 TECHNIQUE: Multidetector volumetric CT imaging of the chest was obtained after the administration of 65 mL of Omnipaque 350 intravenous contrast without immediate adverse reactions. Axial MIP volume rendering provided. Sagittal and coronal reformatted images were obtained. This CT examination was performed using dose optimization techniques as appropriate, variously including the following: *Automated exposure control *Adjustment of mA and/or kV according to patient size (this includes techniques or standardized protocols for targeted exams where dose is matched to indication/reason for exam; i.e. extremities or head) *Use of iterative reconstruction technique DLP: 253 mGy-cm FINDINGS: There is evidence of mild emphysema. LUNGS: Stable postsurgical changes following right upper lobe lobectomy. There is a sacralization bronchiectasis, some surrounding consolidation and scarring in the central right middle and right lower lobes probably representing post radiation change. This is similar to previous exams. There are increased peripheral interstitial markings questionable for mild interstitial lung disease. Appears unchanged. MEDIASTINUM: Small mediastinal and bilateral hilar lymph nodes that are stable. No enlarged lymph nodes. Normal heart size. Trace stable pericardial fluid or thickening. Normal caliber thoracic aorta. Visualized thyroid gland is normal. Mild coronary artery calcification. PLEURA: Loculated small amount of pleural fluid or thickening at the right lung apex is AXILLA: No lymphadenopathy. UPPER ABDOMEN: Unremarkable OSSEOUS STRUCTURES: Degenerative changes of the spine. CT/CT chest w IV con IMPRESSION: Stable postsurgical changes following right upper lobe lobectomy. Probable post radiation change to the central right middle and right lower lobes. Mild emphysema and peripheral interstitial lung disease. Fleischner guidelines were followed.
[2022-12-25] MEDS: iohexoL 350 MG/ML 100 ML INFUS..BTL 85 ML IV (09:20)
[2022-12-25 10:25] LABS: Creatinine POC 1.8 mg/dL (0.5-1.4); GFR POC > 60
== END 2022-12-25 08:28 | disposition home or self-care (01) ==
LOC: HO.CT 08:27
PROVIDERS: PCP Internal Medicine; Visit Provider Internal Medicine Medical Oncology
DX: C34.90 Malignant neoplasm of unspecified part of unspecified bronchus or lung (principal)
CPT/HCPCS: 71260; 82565; Q9967

== ENCOUNTER 2023-02-12 10:07 | Outpatient (AMB) | payer MEDICAID, SELFPAY ==
--- NOTE | 2023-02-12 10:09 | MHC.OFFVIS ---
Intake Vital Signs 02/12/23 10:19 Height 5 ft 8 in Weight 278 lb BMI 42.3 BP 130/70 Blood Pressure Location Lt brachial Position Sitting Pulse 102 H Pulse Oximetry (%) 96 Intake Visit Reasons: 6 month follow up Allergies No Known Allergies Allergy (Unknown, Verified 10/30/22 08:44) UN Medication List - Last Reconciled 02/12/23 by Ketan Herrmann MD albuterol sulfate 90 mcg/actuation 2 puffs inhalation Q4-6H PRN 30 days aspirin 1 tab PO DAILY budesonide-formoterol 160-4.5 mcg/actuation (Symbicort) 2 puffs inhalation BID budesonide-formoterol 160-4.5 mcg/actuation (Symbicort) 2 puffs inhalation BID 30 days bupropion HCl (Wellbutrin SR) 1 tab PO BID folic acid 1 mg PO DAILY magnesium 500 mg PO DAILY metoprolol succinate ER (Toprol XL) 50 mg PO DAILY trazodone 1 tab PO BEDTIME HPI 6 month follow up HPI Details 57-year-old male former smoker who is status post Ciro inci right upper l obe wedge with com pletion right uppe r lobectomy and me diastinal lymphade nectomy on 06/02/20 21 for what turned out to be a stage II (PT 2 a N1) corrina ng cancer.? Postop eratively he did q uite well and plan was for adjuvant chemotherapy howev er he had a signif icant episode of d iverticulitis and colovesicular fist mauro with surgery f or that and chemot herapy was delayed any started late. ? A PET scan was d one on 11/18/2021 w hich I reviewed sh owing no distant i ncreased uptake ho wever there is a r ight paratracheal lymph node that is PET avid and bord emiliano enlarged.? The decision at th at time was this w as possibly inflam matory or infectio us and he was give n antibiotics and a follow-up CT sca n was arranged whi ch he just had on 06/30/2022.? There i s no lymphadenopat hy and no nodules as interpreted by me directly. He ul timately had an EB US and that lymph node was positive. Since then has samreen veliz chemo/rads a nd clinically is d oing quite well. His ileostomy has finally been rever sed. CT scan done compare d with 06/30/22 show s no evidence of r ecurrence or new d isease. Postopera tive changes, post radiation changes and no lymphadeno leila. He denies significant short ness of breath, co ugh, or hemoptysis .? He denies any n ew neurologic symp toms.? After his l ast chemo therapy session he did say last night he had some vomiting and abdominal pain.? Other than above, 12 point review of systems was done and documented sep arately in the off ice chart with det jose social and f amily history. ? ? [facility] Medical History Abnormal PET scan of lung Afib Anemia Colitis Constipation COPD (chronic obstructive pulmonary disease) Depression Diverticula of intestine Gilbert's syndrome Hypertension Nicotine dependence, cigarettes, uncomplicated Non-small cell lung cancer (~2020) Obesity (BMI 35.0-39.9 without comorbidity) Obstructive sleep apnea Opacity of lung on imaging study Surgical History History of bronchoscopy History of colonoscopy History of ileostomy (~2021) History of lobectomy of lung (~2020) Family History Father Colon cancer Mother Diabetes Social History Household Members: Spouse Housing: Apartment Are you a primary date night caregiver to a significant other at home: No Do you presently have visiting nurse or other home services: No Alcohol intake: never Patient Tobacco Use Status: Former Tobacco user Tobacco use type: Cigarette Cigarette Packs Per Day: 0.34 Years Smoked: 30 e-Cigarette/Vaping Use: Currently Using Second Hand Smoke Exposure: No Advance Directives Date on File: 11/18/21 service: No Current occupational status: employed Current occupation: Works in [employer] department at [employer] Physical Exam Vital Signs: Last Vital Signs Pulse 102 H 02/12/23 10:19 BP 130/70 02/12/23 10:19 Pulse Ox 96 02/12/23 10:19 BMI result Body Mass Index 42.3 nad rrr ctab abd soft well healed incisions chest wounds well healed Assessment & Plan Assessment & Plan (1) Non-small cell lung cancer: Onset Date: ~2020 Comment: (Acinar/Adenocarcinoma pT2a pN1 - s/p RUL lobectomy 06/02/21) Code(s): C34.90 - Malignant neoplasm of unspecified part of unspecified bronchus or lung Plan: Discussed the results of his CT scan with him as described above. He looks clincally well and scan shows no evidence of recurrence or new disease. I explained the surveillance protocol which is ct scan every 6 months with office visit for the first two years followed by yearly for three years after that as long as there are no new changes. All questions were answered and will arrange for ct in 6 months with follow up in the office after that. Coding Level of Care Code Est Pt Level 4 (82930) Diagnoses Non-small cell lung cancer C34.90
[2023-02-12 10:19] VITALS: BP 130/70; PULSE 102; O2SAT 96; BMI 42.3
== END 2023-02-12 10:37 | disposition home or self-care (01) ==
PROVIDERS: PCP Internal Medicine; Visit Provider Surgery
DX: C34.90 Malignant neoplasm of unspecified part of unspecified bronchus or lung (principal)

== ENCOUNTER → 2023-02-12 10:07 | Outpatient (BNVA) | payer MEDICAID, SELFPAY | PROVIDERS: PCP Internal Medicine; Visit Provider Surgery | DX: C34.91 Malignant neoplasm of unspecified part of right bronchus or lung (principal); Z87.891 Personal history of nicotine dependence; Z90.2 Acquired absence of lung [part of] | CPT/HCPCS: 99212 ==

== ENCOUNTER 2023-03-30 13:47 | Outpatient (AMB) | payer MEDICAID, SELFPAY ==
[2023-03-30 13:50] VITALS: BP 122/82; PULSE 73; O2SAT 97; BMI 39.4
--- NOTE | 2023-03-30 13:50 | MHC.OFFVIS ---
Intake Vital Signs 03/30/23 13:50 Height 5 ft 8 in Weight 259 lb 0.69 oz BMI 39.4 BP 122/82 Blood Pressure Location Lt brachial Position Sitting Pulse 73 Pulse Source Doppler Pulse Oximetry (%) 97 Oxygen Delivery Method Room Air Intake Visit Reasons: dyspnea Allergies No Known Allergies Allergy (Unknown, Verified 03/30/23 13:52) UN HPI dyspnea HPI Details 57-year-old gentleman, active 40 pack-year smoker with underlying history of of [id number] lung cancer status post right upper lobectomy followed by adjuvant chemo and radiation, believed to be in remission, who continues to follow-up with thoracic surgery and oncology, followed for moderate COPD. After the last office visit patient stop using any other bronchodilators except albuterol MDI and reports good symptomatic control and no recent exacerbations. [facility] Medical History Abnormal PET scan of lung Afib Anemia Colitis Constipation COPD (chronic obstructive pulmonary disease) Depression Diverticula of intestine Gilbert's syndrome Hypertension Nicotine dependence, cigarettes, uncomplicated Non-small cell lung cancer (~2020) Obesity (BMI 35.0-39.9 without comorbidity) Obstructive sleep apnea Opacity of lung on imaging study Surgical History History of bronchoscopy History of colonoscopy History of ileostomy (~2021) History of lobectomy of lung (~2020) Family History Father Colon cancer Mother Diabetes Social History (Updated 03/30/23 @ 13:53 by Diana Silva [facility]) Household Members: Spouse Housing: Apartment Are you a primary child care giver to a significant other at home: No Do you presently have visiting nurse or other home services: No Alcohol intake: never Patient Tobacco Use Status: Current someday Tobacco user Tobacco use type: Cigarette Cigarettes Per Day: 2 Years Smoked: 30 e-Cigarette/Vaping Use: Currently Using Second Hand Smoke Exposure: No Advance Directives Date on File: 11/18/21 service: No Current occupational status: employed Current occupation: Works in [employer] department at [employer] Review of Systems Const Denies daytime sleepiness, Denies excessive sweating, Denies fatigue, Denies fever(s), Denies lethargy, Denies malaise, Denies night sweats, Denies snoring and Denies weight loss Eyes Denies blurry vision and Denies itchy eyes ENT Denies nasal congestion, Denies post nasal drip, Denies sinus pain, Denies sinus pressure and Denies other ( Thrush) Card Denies chest pain, Denies pedal edema, Denies dyspnea, Denies orthopnea and Denies paroxysmal nocturnal dyspnea Resp Denies cough, Denies hemoptysis, Denies excessive phlegm production, Denies dyspnea, Denies snoring and Denies wheezing GI Denies abdominal pain and Denies heartburn Musc Denies myalgias, Denies arthralgias and Denies joint swelling Skin/Breast Denies rash Neuro Denies memory loss and Denies seizure-like activity Psych Denies abnormal sleep pattern, Denies anxiety and Denies memory loss Endo Denies excessive sweating, Denies fatigue and Denies heat intolerance Shane/Lymph Denies easy bruising Aller/Immun Denies itchy eyes, Denies seasonal rhinorrhea and Denies wheezing Physical Exam Vital Signs: Last Vital Signs Pulse 73 03/30/23 13:50 BP 122/82 03/30/23 13:50 Pulse Ox 97 03/30/23 13:50 Oxygen Delivery Method Room Air 03/30/23 13:50 BMI result Body Mass Index 39.4 Const General: no acute distress and alert Nutritional Appearance: not obese Orientation/consciousness: Other orientation findings ( oriented) HEENT Head: Yes atraumatic Eyes General: appearance normal, both eyes and all related structures Sclerae: sclerae normal EOM: EOMs intact bilaterally Neck Neck: Yes supple Lymphatic: no lymphadenopathy noted Resp Effort & Inspection: normal respiratory effort and no use of accessory muscles Auscultation: clear to auscultation bilaterally Cardio Rate: regular rate Rhythm: regular rhythm Heart sounds: no gallops, no murmurs and no rubs Skin General skin exam: other ( warm) Extrem General: No clubbing, No cyanosis and No edema Assessment & Plan Assessment & Plan (1) COPD (chronic obstructive pulmonary disease): Code(s): J44.9 - Chronic obstructive pulmonary disease, unspecified Plan: Well controlled on as needed albuterol MDI. Continue current regimen. (2) Abnormal CT scan, chest: Code(s): R93.89 - Abnormal findings on diagnostic imaging of other specified body structures Plan: Status post right upper lobectomy and continues to follow-up with thoracic surgery. Coding Level of Care Code Est Pt Level 3 (79345) Diagnoses COPD (chronic obstructive pulmonary disease) J44.[address] scan, chest R93.89
== END 2023-03-30 14:08 | disposition home or self-care (01) ==
PROVIDERS: PCP Internal Medicine; Visit Provider Internal Medicine Pulmonary Disease
DX: J44.9 Chronic obstructive pulmonary disease, unspecified (principal); R93.89 Abnormal findings on diagnostic imaging of other specified body structures
CPT/HCPCS: 99213

== ENCOUNTER → 2023-03-30 13:47 | Outpatient (BNVA) | payer MEDICAID, SELFPAY | PROVIDERS: PCP Internal Medicine; Visit Provider Internal Medicine Pulmonary Disease | DX: J44.9 Chronic obstructive pulmonary disease, unspecified (principal); R93.89 Abnormal findings on diagnostic imaging of other specified body structures | CPT/HCPCS: 99212 ==

== ENCOUNTER 2023-05-29 17:08 | Emergency (ER) | payer MEDICAID, SELFPAY ==
--- NOTE | 2023-05-29 17:15 | ED.ANIMALBIT ---
HPI - Animal Bite General Chief Complaint: Animal Bite Stated Complaint: attacked by cat Time Seen by Provider: 05/29/23 17:28 Source: patient Mode of arrival: ambulatory Limitations: no limitations History of Present Illness HPI narrative: Patient is a 57-year-old male who presents emergency department for evaluation after injury by cat. This was his personal cat, when he was attempting to introduce to a new kitten. The cat got angry and scratched his right hand and forearm, uncertain whether the cat may have bit him or not. This happened earlier this morning. He continued about his day as they were currently moving. Presenting to the emergency department today for swelling and redness to the hand. Reports cat is not up-to-date on vaccinations for rabies, but they do not have any symptomatic suspicion for rabies. Declining prophylactic rabies treatment which I think is appropriate. Last tetanus vaccination 1 year ago. Related Data Home Medications Medication Instructions Recorded Confirmed bupropion HCl 150 mg tablet,12 hr 1 tab PO BID 01/17/21 02/12/23 sustained-release (Wellbutrin SR) aspirin 81 mg tablet,delayed 1 tab PO DAILY 12/23/21 02/12/23 release trazodone 100 mg tablet 1 tab PO BEDTIME 03/12/22 02/12/23 magnesium 500 mg tablet 500 mg PO DAILY 05/19/22 02/12/23 budesonide-formoterol HFA 160 2 puff inhalation BID 10/30/22 02/12/23 mcg-4.5 mcg/actuation aerosol inhaler (Symbicort) Previous Rx's Medication Instructions Recorded metoprolol succinate 50 mg 50 mg PO DAILY #30 tabs 03/13/22 tablet,extended release 24 hr (Toprol XL) albuterol sulfate 90 mcg/actuation 2 puff inhalation Q4-6H PRN 05/05/22 aerosol inhaler shortness of breath or wheezing 30 days #1 ea folic acid 1 mg tablet 1 mg PO DAILY #60 tabs 06/20/22 budesonide-formoterol HFA 160 2 puff inhalation BID 30 days 07/29/22 mcg-4.5 mcg/actuation aerosol #10.2 grams inhaler (Symbicort) amoxicillin 875 mg-potassium 1 tab PO BID #13 tabs 05/29/23 clavulanate 125 mg tablet Allergies Allergy/AdvReac Type Severity Reaction Status Date / Time No Known Allergies Allergy Unknown UN Verified 05/29/23 17:16 Review of Systems Review of Systems: Yes all other systems are reviewed and are negative [facility] Past Medical History Attestation statement: The following information was validated with the patient. Source: old records reviewed Medical History Opacity of lung on imaging study Anemia Afib Abnormal PET scan of lung Non-small cell lung cancer (~2020) Diverticula of intestine COPD (chronic obstructive pulmonary disease) Nicotine dependence, cigarettes, uncomplicated Obstructive sleep apnea Obesity (BMI 35.0-39.9 without comorbidity) Gilbert's syndrome Constipation Colitis Depression Hypertension Surgical History History of bronchoscopy History of ileostomy (~2021) History of lobectomy of lung (~2020) History of colonoscopy Family History Family History Father Colon cancer Mother Diabetes Social History Social History (Updated 03/30/23 @ 13:53 by JOHN Castano) Household Members: Spouse Housing: Apartment Are you a primary ostomy care nurse to a significant other at home: No Do you presently have visiting nurse or other home services: No Alcohol intake: never Patient Tobacco Use Status: Current someday Tobacco user Tobacco use type: Cigarette Cigarettes Per Day: 2 Years Smoked: 30 e-Cigarette/Vaping Use: Currently Using Second Hand Smoke Exposure: No Advance Directives: Yes Advance Directives on File: Yes Advance Directives Date on File: 11/18/21 service: No Current occupational status: employed Current occupation: Works in [employer] department at [employer] Physical Exam ED Vital Signs: Vital Signs - 24 hr 05/29/23 17:16 Temperature 97.6 F Pulse Rate 67 Respiratory Rate 18 Blood Pressure 144/79 H Pulse Oximetry 98 Oxygen Delivery Method Room Air BMI result Body Mass Index 38.4 Appearance: Alert.?Oriented to person, place and time. No acute distress.?Normal affect. Eyes: Pupils equal, round and reactive to light.? ENT: Pharynx normal.?? Neck: Normal inspection.? Neck supple.?? CVS: Heart sounds normal. Normal heart rate and rhythm.? Pulses normal.?? Respiratory: No respiratory distress.? Lung sounds clear to auscultation bilaterally??? Skin: Skin warm and dry.? Normal skin color.? Extremities: Dorsal right with localized swelling, erythema, multiple superficial abrasions, and fine puncture orozco. Right forearm with scattered abrasions as well. No active drainage or bleeding. Full AROM to the digits and wrist. 2+ radial pulse bilaterally. Neuro: Moves all extremities spontaneously. Sensation intact bilaterally. Ambulates with normal steady gait. Medications Administered Discontinued Medications Generic Name Dose Route Start Last Admin Trade Name Omero PRN Reason Stop Dose Admin Amoxicillin/Clavulanate Potassium 875 mg 05/29/23 17:23 05/29/23 17:26 Amoxicillin/Potassium Clav 875 Mg Tablet PO 05/29/23 17:24 875 mg ONCE ONE Administration Medical Decision Making Medical Decision Making [facility] Narrative: Patient is a 57-year-old male presents emergency department for evaluation of cat scratch/possible bite to the right hand and forearm as per HPI. Overall is well-appearing, nontoxic, afebrile. Localized swelling and erythema to the dorsum of the right hand with abrasions, and with full AROM to the digits and wrist. Extremities neurovascularly intact distally. Cat is not up-to-date on vaccinations but family does not have concern for review symptoms, declining prophylactic treatment. Received initial dose of Augmentin in the emergency department. Sent prescription for remainder to the pharmacy. None of the bites/scratches require any suture repair, superficial in nature. Discussed worrisome signs and symptoms that would warrant re-evaluation in the emergency department. All questions answered. Stable for discharge. Differential Diagnosis Differential Diagnoses: The differential diagnosis associated with the presentation includes (As noted above) Independent Historian Clinical information obtained from an independent historian. History obtained from or confirmed by: Spouse (Present who confirms history) External Record Review External record reviewed: Outpatient record Tests considered The following testing was considered but not selected: Critically low suspicion for osseous involvement, XR deferred Prescription Management I considered prescription management with: Pain Medication (Tylenol) and Antibiotic Discharge Plan Discharge Clinical Impression: Cat bite Patient Disposition: Home, Self-Care Instructions: Animal Bite (ED) Additional Instructions: Return back to emergency department for re-evaluation if you develop worsening redness, pain, swelling, fevers, chills, pus-like discharge, or any new/worsening symptoms or concerns. He received the 1st dose of antibiotic tonight in the emergency department, pick up and delivery driver your prescription tomorrow morning from the pharmacy and begin taking as prescribed. Prescriptions: New amoxicillin-pot clavulanate 875-125 mg tablet 1 tab PO BID Qty: 13 0RF No Action budesonide-formoterol [Symbicort] 160-4.5 mcg/actuation HFA aerosol inhaler 2 puff inhalation BID 30 Days Qty: 10.2 6RF bupropion HCl [Wellbutrin SR] 150 mg tablet sustained-release 12 hr 1 tab PO BID magnesium 500 mg Tablet 500 mg PO DAILY folic acid 1 mg Tablet 1 mg PO DAILY Qty: 60 3RF budesonide-formoterol [Symbicort] 160-4.5 mcg/actuation HFA aerosol inhaler 2 puff INHALATION BID aspirin 81 mg tablet,delayed release (DR/EC) 1 tab PO DAILY trazodone 100 mg tablet 1 tab PO BEDTIME metoprolol succinate [Toprol XL] 50 mg tablet extended release 24 hr 50 mg PO DAILY Qty: 30 0RF albuterol sulfate 90 mcg/actuation HFA aerosol inhaler 2 puff inhalation Q4-6H PRN (Reason: shortness of breath or wheezing) 30 Days Qty: 1 6RF Referrals: Bogdan Ha MD [Primary Care Provider] - Interventions: ED Discharge Assessment Last Done: 05/29/23 17:38 Discharge Date/Time: 05/29/23 17:38
[2023-05-29 17:16] VITALS: BP 144/79; PULSE 67; RESP 18; TEMP 36.4; O2SAT 98; BMI 38.4
[2023-05-29] MEDS: Amoxicillin/Potassium Clav 875 MG TABLET PO (17:26)
== END 2023-05-29 17:38 | disposition home or self-care (01) ==
PROVIDERS: Emergency Provider Internal Medicine; PCP Internal Medicine
DX: S60.511A Abrasion of right hand, initial encounter (principal); W55.01XA Bitten by cat, initial encounter; Y93.9 Activity, unspecified; Y92.9 Unspecified place or not applicable; Y99.9 Unspecified external cause status
CPT/HCPCS: 99282; 99283

== ENCOUNTER 2024-03-23 14:13 | Outpatient (REF) | payer MEDICAID, SELFPAY | END 2024-03-23 14:14 | disposition home or self-care (01) | LOC: HO.XRAY 14:13 | PROVIDERS: PCP Internal Medicine; Visit Provider Internal Medicine Medical Oncology | DX: Z13.89 Encounter for screening for other disorder (principal) ==

== ENCOUNTER 2024-03-23 14:50 | Outpatient (REF) | payer MEDICAID, SELFPAY ==
--- NOTE | ~2024-03-23 | XR_ITS ---
EXAMINATION: CHEST RADIOGRAPH WITH DECUBITUS FILMS CLINICAL INFORMATION: Lung cancer COMPARISON: CT chest 12/25/2022 TECHNIQUE: PA and lateral chest along with bilateral decubitus images FINDINGS: There is volume loss in the right hemithorax with a right effusion and right lower lobe consolidation/collapse in this patient status post right upper lobectomy. With decubitus positioning, there is a change in configuration of the fluid indicative that some component since free fluid. Difficult to assess heart size. A loop recorder is present. XR/XR chest w decubitus IMPRESSION: Right-sided effusion with some free fluid component. Electronically signed by: Chris Shaw MD 03/23/2024 05:07 PM EDT RP
== END 2024-03-23 14:51 | disposition home or self-care (01) ==
LOC: HO.XRAY 14:50
PROVIDERS: PCP Internal Medicine; Visit Provider Internal Medicine Medical Oncology
DX: J90 Pleural effusion, not elsewhere classified (principal)
CPT/HCPCS: 71048

== ENCOUNTER 2024-03-24 11:22 | Inpatient (IN) | payer MEDICAID, SELFPAY ==
[2024-03-24] VITALS (9 sets, daily range): BP systolic 113–141; BP diastolic 73–89; PULSE 69–183; RESP 14–33; TEMP 36.9–37.2; O2SAT 95–100; BMI 31.5
--- NOTE | ~2024-03-24 | XR_ITS ---
EXAMINATION: XR CHEST CLINICAL INFORMATION: Follow up pleural effusion. COMPARISON: Chest x-ray dated March 26, 2024. Chest CT dated March 24, 2024. TECHNIQUE: Portable AP view of the chest was obtained. FINDINGS: The study is limited by portable technique and low lung volumes. There has been no gross significant radiographic change compared with one day prior. The [place] loop of a right drainage tube projects over the right lung base. Ovoid air with surrounding soft tissue density remains. Findings suggest loculated hydropneumothorax, pleural thickening, atelectasis, infiltrate, and/or mass. Right upper lung field pleural thickening and/or loculated pleural fluid. Mild shift of the mediastinum to the right. Left lung appears grossly clear. The cardiac silhouette is suboptimally evaluated. The aorta may be mildly uncoiled, suggesting hypertension. Bones appear unremarkable. XR/XR chest 1V IMPRESSION: No gross significant radiographic change compared with one day prior. Electronically signed by: Julius Frye MD 03/27/2024 02:33 PM EDT RP
--- NOTE | ~2024-03-24 | CT_ITS ---
EXAMINATION: CT ANGIOGRAM CHEST CLINICAL INFORMATION: Shortness of breath evaluate for pulmonary embolism COMPARISON: None available. TECHNIQUE: Multiple axial images were obtained through the chest after the administration of 65 mL of Omnipaque 350 intravenous contrast. Extensive vascular post-processing including two-dimensional and three-dimensional reformatted images were created and reviewed on an independent workstation. This CT examination was performed using dose optimization techniques as appropriate, variously including the following: *Automated exposure control *Adjustment of mA and/or kV according to patient size (this includes techniques or standardized protocols for targeted exams where dose is matched to indication/reason for exam; i.e. extremities or head) *Use of iterative reconstruction technique DLP: 304 mGy-cm FINDINGS: QUALITY OF STUDY/CONTRAST BOLUS: Satisfactory. PULMONARY ARTERIES: No pulmonary emboli. THORACIC AORTA: Thoracic aorta is ectatic, measured 4.1 x 3.9 cm . LUNG: Right lung revealed right lower lobe consolidation and small pleural effusion there is air bronchogram in the right upper lobe. Left lung is clear PLEURA: There is large pleural effusion on the right MEDIASTINUM: There is mediastinal shift to the right there is no mediastinal or hilar lymphadenopathy. There is no pericardial effusion. No evidence of septal bowing or right heart strain. CORONARY ARTERY CALCIFICATION: Mild CHEST WALL/AXILLA: No axillary or internal mammary lymphadenopathy. OSSEOUS STRUCTURES: No acute or suspicious osseous abnormality. UPPER ABDOMEN: Unremarkable. No reflux of contrast into the hepatic veins to suggest elevated right heart pressures. CT/CT angio chest PE protocol IMPRESSION: No evidence of pulmonary embolism Large pleural effusion and airspace disease on the right VTE: negative Fleischner guidelines were followed. Electronically signed by: Saige Walls MD 03/24/2024 04:17 PM EDT
--- NOTE | ~2024-03-24 | XR_ITS ---
EXAMINATION: XR CHEST CLINICAL INFORMATION: Chest pain. Shortness of breath. COMPARISON: Chest radiograph dated March 23, 2024. TECHNIQUE: Frontal view of the chest was obtained. FINDINGS: There is a moderate-sized right pleural effusion. There is considerable right upper lobe airspace disease. The left lung is clear. No large left pleural effusion. No pneumothorax. Heart size is difficult to assess. There is a loop recorder. XR/XR chest 1V IMPRESSION: Moderate-sized right pleural effusion. Right upper lobe airspace disease. Electronically signed by: Antonio Spencer DO 03/24/2024 02:33 PM EDT
--- NOTE | ~2024-03-24 | XR_ITS ---
EXAMINATION: XR CHEST CLINICAL INFORMATION: f/u chest tube removal COMPARISON: Chest radiograph 03/27/2024 TECHNIQUE: AP view of the chest was obtained. FINDINGS/ XR/XR chest 1V IMPRESSION: Interval removal of right basilar pigtail chest tube. Otherwise, no significant interval change compared to 03/27/2024. Right perihilar dense opacity with air bronchograms, could represent atelectasis/consolidation. Loculation of lucency at the right lung base with lung markings, could represent aerated lung with fissural fluid versus a pocket of hydropneumothorax. Right apical density likely represents residual layering pleural effusion. There is right-sided volume loss with rightward mediastinal shift, as before. The right heart boarder is obscured limiting evaluation of the cardiomediastinal silhouette. Left lung is well expanded and clear. Electronically signed by: Madelin Lloyd DO 03/28/2024 04:46 PM EDT
--- NOTE | ~2024-03-24 | CT_ITS ---
CLINICAL HISTORY: Metastatic lung cancer with large loculated right pleural effusion PROCEDURES: 1. Limited preprocedure CT of the chest. Permanent images saved in PACS. 2. CT-guided right chest tube placement. 3. Limited post procedure CT of the chest. Permanent images saved in PACS. CLINICIANS: Kyree Baer PA-C MEDICATIONS: -Fentanyl 100 mcg, and lidocaine 1% 10 mL SQ -Antibiotics: None -For additional details, please see nursing flowsheet. COMPLICATIONS: None ESTIMATED BLOOD LOSS: < 5 ml CONTRAST: None SPECIMENS: A specimen was sent for culture. PROCEDURE NOTE: The procedure, risks, benefits, and alternatives were carefully explained to the patient and written informed consent was obtained. The patient was placed in the left lateral decubitus position on the CT table. A timeout was performed. A limited CT of the chest was performed to localize the fluid collection and choose appropriate needle entry and trajectory. The patient was prepped and draped in usual sterile fashion. The skin and subcutaneous tissues were anesthetized with lidocaine. Under CT guidance, a trocar was advanced into the right loculated pleural effusion. Non-clotting, blood tinged fluid was immediately aspirated. A 0.0035 J wire was inserted through the the trocar needle and coiled in the fluid collection. The trocar needle was then removed over the wire. The tract was then serially dilated. Over the wire, a 12 fr all-purpose drainage catheter was advanced and coiled into the loculated right pleural fluid under CT guidance. The wire was then removed. A total of 20 ml of non-clotting, blood tinged fluid was removed and sent for culture. The catheter was secured to the skin with a 2-0 nylon suture. The drain was then connected to a closed drainage system.. A limited postprocedure CT was then obtained. The patient was stable after the procedure and was transferred to the emergency room. CT/CT chest tube placement Impression: CT guided right chest tube. This procedure was performed by Kyree Baer PA-C and supervised by Dr. Portillo. Electronically signed by: David Meeks MD 04/24/2024 02:31 PM EDT
--- NOTE | ~2024-03-24 | XR_ITS ---
EXAMINATION: XR CHEST CLINICAL INFORMATION: Follow-up right chest tube placement COMPARISON: Multiple priors with the last chest tube placement CT of 03/24/2024 TECHNIQUE: Frontal view of the chest was obtained. FINDINGS: A right chest pigtail catheter is noted projecting at the right lung bases. There is significantly improved aeration in the right lower lung zone suggesting interval decrease in the size of the loculated right pleural effusion noted on the CT scan of 03/24/2024. There is persistent small pleural effusion. Right perihilar consolidative opacities and right apical pleural widening are redemonstrated. No visible pneumothorax otherwise. No evidence of pulmonary edema or left pleural effusion. Cardiomediastinal silhouette is unchanged. A cardiac loop recorder device projecting over the left mid chest medially is redemonstrated. XR/XR chest 1V IMPRESSION: Interval decrease in the size of the loculated right pleural effusion. A lucent portion noted in the region of previous loculated right pleural effusion in the lower lung zone may represent aerated lung or component of hydropneumothorax; former is favored. Otherwise no visible pneumothorax. Persistent small right pleural effusion. Electronically signed by: Amanda Claros MD 03/26/2024 08:17 AM EDT
--- NOTE | 2024-03-24 11:23 | ECG_ITS ---
Test Reason : tachycardia Blood Pressure : / mmHG Vent. Rate : 164 BPM Atrial Rate : 000 BPM P-R Int : 000 ms QRS Dur : 094 ms QT Int : 288 ms P-R-T Axes : 000 -16 138 degrees QTc Int : [address] & T wave abnormality, consider lateral ischemia Abnormal ECG When compared with ECG of 24-MAR-2024 10:59, No significant change was found Referred By: Rxoanne Vivas Electronically Signed By:JESSA EID
--- NOTE | 2024-03-24 11:26 | ED_ITS ---
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 Denies CP, palpitations, nausea, vomiting, abd pain, headache, vision changes, dizziness, weakness Related Data Home Medications ?Medication ?Instructions ?Recorded ?Confirmed bupropion HCl 150 mg tablet,12 hr 1 tab PO BID 01/17/21 03/23/24 sustained-release (Wellbutrin SR) aspirin 81 mg tablet,delayed 1 tab PO DAILY 12/23/21 03/23/24 release trazodone 100 mg tablet 1 tab PO BEDTIME 03/12/22 03/23/24 Previous Rx's ?Medication ?Instructions ?Recorded budesonide-formoterol HFA 160 2 puff inhalation BID 30 days 07/29/22 mcg-4.5 mcg/actuation aerosol #10.2 grams inhaler (Symbicort) albuterol sulfate 90 mcg/actuation 2 puff PO Q4-6H PRN for wheezing 07/13/23 aerosol inhaler (Ventolin HFA) #18 grams cyanocobalamin (vitamin B-12) 1,000 mcg sublingual DAILY #30 ea 02/03/24 1,000 mcg sublingual lozenge ferrous sulfate 325 mg (65 mg 325 mg PO DAILY #30 tabs 02/03/24 iron) tablet oxycodone 5 mg tablet 5 mg PO Q8H PRN Breakthrough Pain, 03/08/24 Moderate #60 tabs ondansetron 8 mg disintegrating 8 mg PO Q8H #60 tabs 03/20/24 tablet lidocaine 4 % topical cream (LMX 4) 1 appl topical BID #35 grams 03/23/24 Allergies Allergy/AdvReac Type Severity Reaction Status Date / Time No Known Allergies Allergy Unknown UN Verified 03/24/24 11:27 Review of Systems 2 Review of Systems: Yes all other systems are reviewed and are negative [facility] Past Medical History Attestation statement: The following information was validated with the patient. Source: old records reviewed and nursing notes reviewed Medical History Opacity of lung on imaging study Anemia Afib Abnormal PET scan of lung Non-small cell lung cancer (~2020) Diverticula of intestine COPD (chronic obstructive pulmonary disease) Nicotine dependence, cigarettes, uncomplicated Obstructive sleep apnea Obesity (BMI 35.0-39.9 without comorbidity) Gilbert's syndrome Constipation Colitis Depression Hypertension Surgical History History of bronchoscopy History of ileostomy (~2021) History of lobectomy of lung (~2020) History of colonoscopy Family History Family History Father Colon cancer Mother Diabetes Social History Social History Household Members: Spouse Housing: Apartment Are you a primary clinical care leader to a significant other at home: No Do you presently have visiting nurse or other home services: No Alcohol intake: never Patient Tobacco Use Status: Current someday Tobacco user Tobacco use type: Cigarette Cigarettes Per Day: 2 Years Smoked: 30 Smoked in Last 30 Days: No e-Cigarette/Vaping Use: Currently Using Second Hand Smoke Exposure: No Use of substances other than those prescribed or required for medical reasons: No Advance Directives: Yes Advance Directives on File: Yes Advance Directives Date on File: 11/18/21 Do you have a plan to hurt others: No Plan service: No Current occupational status: employed Current occupation: Works in [employer] department at [employer] Physical Exam ED Vital Signs: Vital Signs - 24 hr 03/24/24 11:26 03/24/24 11:38 03/24/24 12:00 Temperature 98.9 F 98.6 F Pulse Rate 183 H 94 91 Respiratory Rate 16 16 20 Blood Pressure 115/86 141/78 H 130/83 Pulse Oximetry 98 98 98 Oxygen Delivery Method Nasal Cannula Nasal Cannula Nasal Cannula Oxygen Flow Rate 2 2 03/24/24 14:26 Temperature 98.4 F Pulse Rate 69 Respiratory Rate 16 Blood Pressure 125/89 Pulse Oximetry 100 Oxygen Delivery Method Nasal Cannula Oxygen Flow Rate 2 BMI result Body Mass Index 31.5 vss Appearance: Alert.? Oriented X3.? No acute distress.? Head: Normocephalic, atraumatic, no step-offs or deformities Eyes: Pupils equal, round and reactive to light.? ENT: Pharynx normal.? Neck: Normal inspection.? Neck supple.? CVS: Rapid regular rhythm likely SVT heart rate around 150-160 Pulses normal.? Respiratory: No respiratory distress.? Breath sounds diminished on r .? Abdomen: Soft and nontender.? Skin: Skin warm and dry.? Normal skin color.? Normal skin turgor.? Extremities: No lower extremity edema.? No calf ttp. 5/5 strength to bilateral upper and lower extremities Back: No midline tenderness, no C-spine tenderness, full range of motion, no CVA tenderness bilaterally Neuro: Oriented X 3.? No motor deficit.? No sensory deficit. CN 2-12 intact Course Reevaluation(s) Reevaluation #1: Patient noted to be in a rapid SVT heart rate fluctuating between 150s to 170s. 6 mg of adenosine push with good response, patient now in sinus rhythm. Will continue to monitor on a heart monitor. Time: 11:40 Reevaluation #2: CBC unremarkable appears to have a baseline normocytic anemia. Chemistry no acute findings needing intervention. Baseline elevated BUN and creatinine. Troponin 10.4 likely secondary to demand ischemia. Coags unremarkable. Moderat sized right pleural effusion. Right upper lobe airspace diseae ( will better evaluate with CT of chest) CTA will be done to ro pe still pending. Oncology tells me patient may require thoracentesis for right pleural effusion, IR will do a chest tube and Thoracics states may need a pleurodesis. Plan Chest tube today and hospital admission Time: 14:39 Medications Administered Discontinued Medications Generic Name Dose Route Start Last Admin Trade Name Freq PRN Reason Stop Dose Admin Adenosine 6 mg 03/24/24 11:25 03/24/24 11:32 Adenosine 6 Mg/2 Ml Vial IVPUSH 03/24/24 11:26 6 mg STAT STA Administration Adenosine 12 mg 03/24/24 11:25 03/24/24 12:38 Adenosine 6 Mg/2 Ml Vial IVPUSH 03/24/24 11:26 Not Given STAT STA Iohexol 65 ml 03/24/24 13:55 03/24/24 13:56 Iohexol 350 Mg/Ml 75 Ml Infus..Btl IV 03/24/24 13:56 65 ml ONCE ONE Administration Medical Decision Making Medical Decision Making [facility] Narrative: 1128 58-year-old male presents with shortness of breath for awhile and was told he was in SVT today while at oncology Physical exam rapid regular rhythm likely sinus tach versus SVT, diminished breathsounds on right History and physical exam concerning for SVT versus AFib versus arrhythmia. Will rule out metabolic derangement Plan labs, imaging Differential Diagnosis Differential Diagnoses: The differential diagnosis associated with the presentation includes History and physical exam concerning for SVT versus AFib versus arrhythmia. Will rule out metabolic derangement Admission/Observation Consideration of admission/observation: Escalation of care including admission/observation considered (possible ) Lab Data 03/24/24 11:29 03/24/24 12:06 Labs: Lab Results 03/24/24 03/24/24 Range/Units 11:29 12:06 WBC 7.3 (4.8-10.8) X10*3/uL RBC 3.78 L (4.60-5.80) X10*6/uL Hgb 9.6 L (14.0-18.0) g/dl Hct 31.2 L (42.0-52.0) % MCV 82.5 (80.0-98.0) fL MCH 25.4 L (27.0-33.0) pg MCHC 30.8 L (31.0-36.0) g/dl RDW 16.2 H (11.0-16.0) % Plt Count 221 (160-400) X10*3/uL MPV 8.9 L (9.4-12.4) fL Immature Gran % (Auto) 0.5 H (0.0-0.4) % Neut % (Auto) 72.0 (45-73) % Lymph % (Auto) 12.3 L (20-40) % Toole % (Auto) 13.5 H (2-11) % Eos % (Auto) 1.0 (0-4) % Baso % (Auto) 0.7 (0-2) % Lymph # (Auto) 0.9 L (1.2-4.9) X10*3/uL Toole # (Auto) 1.0 (0.1-1.2) X10*3/uL Eos # (Auto) 0.1 (0.0-0.4) X10*3/uL Baso # (Auto) 0.1 (0.0-0.2) X10*3/uL Abs Immat Gran (auto) 0.04 H (0.00-0.03) X10*3/uL Absolute Neuts (auto) 5.3 (2.0-8.3) x10*3/uL Absolute Nucleated RBC 0.000 (0.0-0.012) X10*3/uL Nucleated RBC % (auto) 0.0 (0.0-0.2) /100WBC PT 12.1 (10.9-12.4) SEC INR 1.0 (0.9-1.1) Sodium 141 (135-145) mmol/L Potassium 3.8 (3.3-5.1) mmol/L Chloride 103 (96-108) mmol/L Carbon Dioxide 30 H (22-29) mmol/L Anion Gap 12 (12-20) BUN 19 H (9-16) mg/dL Creatinine 1.37 (0.5-1.4) mg/dL Estim Creat Clear Calc 68.2 Estimated GFR 54 Random Glucose 96 (60-115) mg/dL Calcium 9.6 (8.4-10.2) mg/dL Magnesium 1.6 (1.6-2.6) mg/dL Total Bilirubin 0.4 (0.0-1.0) mg/dL AST 13 (5-37) U/L ALT 16 (0-40) U/L Alkaline Phosphatase 80 (39-117) U/L Troponin I High Sens 10.4 (<3.5-35.0) ng/L Total Protein 7.2 (6.5-8.0) g/dL Albumin 3.4 L (3.5-5.0) g/dL Critical Care Time Critical Care Time Critical Care Time: Yes Total Critical Care Time: 35 Attestation: I attest to this time spent taking care of the patient, obtaining history, physical, reviewing labs, imaging, treatment of patients condition +/- specialist/hospitalist consult Discharge Plan Discharge Clinical Impression: SVT (supraventricular tachycardia), Pleural effusion Patient Disposition: Still a Patient Prescriptions: No Action budesonide-formoterol [Symbicort] 160-4.5 mcg/actuation HFA aerosol inhaler 2 puff inhalation BID 30 Days Qty: 10.2 6RF albuterol sulfate [Ventolin HFA] 90 mcg/actuation HFA aerosol inhaler 2 puff PO Q4-6H PRN (Reason: for wheezing) Qty: 18 6RF bupropion HCl [Wellbutrin SR] 150 mg tablet sustained-release 12 hr 1 tab PO BID cyanocobalamin (vitamin B-12) 1,000 mcg Lozenge 1,000 mcg SUBLINGUAL DAILY Qty: 30 6RF ferrous sulfate 325 mg (65 mg iron) Tablet 325 mg PO DAILY Qty: 30 5RF oxycodone 5 mg Tablet 5 mg PO Q8H PRN (Reason: Breakthrough Pain, Moderate) Qty: 60 0RF Rx Instructions: Partial Fill upon patient request. ondansetron 8 mg Tablet,Disintegrating 8 mg PO Q8H Qty: 60 3RF lidocaine [LMX 4] 4 % Cream 1 appl TOPICAL BID Qty: 35 2RF Rx Instructions: Apply to Port-A-Cath site 1 hour prior to use. Q.2 weeks aspirin 81 mg tablet,delayed release (DR/EC) 1 tab PO DAILY trazodone 100 mg tablet 1 tab PO BEDTIME Print Language: Arabic
[2024-03-24] MEDS: Adenosine 6 MG/2 ML VIAL IVPUSH (11:32)
[2024-03-24 11:34] LABS: MANUAL DIFF FLAG NO
[2024-03-24 11:37] LABS: Basophils Absolute Auto 0.1 X10*3/uL (0.0-0.2); Basophils Percent Auto 0.7 % (0-2); Eosinophils Absolute Auto 0.1 X10*3/uL (0.0-0.4); Hematocrit 31.2 % (42.0-52.0); Hemoglobin 9.6 g/dl (14.0-18.0); Imm Gran Abs Auto 0.04 X10*3/uL (0.00-0.03); Imm Gran Pct Auto 0.5 % (0.0-0.4); Lymphocytes Absolute Auto 0.9 X10*3/uL (1.2-4.9); Lymphocytes Percent Auto 12.3 % (20-40); Mean Corpuscular HGB Conc 30.8 g/dl (31.0-36.0); Mean Corpuscular Hemoglobin 25.4 pg (27.0-33.0); Mean Corpuscular Volume 82.5 fL (80.0-98.0); Mean Platelet Volume 8.9 fL (9.4-12.4); Monocytes Percent Auto 13.5 % (2-11); Neutrophils Absolute Auto 5.3 x10*3/uL (2.0-8.3); Platelet Count 221 X10*3/uL (160-400); Red Blood Count 3.78 X10*6/uL (4.60-5.80); Red Cell Distribution Width 16.2 % (11.0-16.0); White Blood Count 7.3 X10*3/uL (4.8-10.8)
[2024-03-24 11:47] LABS: Prothrombin Time 12.1 SEC (10.9-12.4)
[2024-03-24 12:00] LABS: Troponin-I High Sensitivity 10.4 ng/L (<3.5-35.0)
[2024-03-24 12:43] LABS: Alanine Aminotransferase 16 U/L (0-40); Albumin Level 3.4 g/dL (3.5-5.0); Alkaline Phosphatase 80 U/L (39-117); Anion Gap 12 (12-20); Aspartate Amino Transferase 13 U/L (5-37); Bilirubin Total 0.4 mg/dL (0.0-1.0); Blood Urea Nitrogen 19 mg/dL (9-16); Calcium 9.6 mg/dL (8.4-10.2); Carbon Dioxide 30 mmol/L (22-29); Chloride 103 mmol/L (96-108); Creatinine Clr Calc Pharmacy 68.2; Estimated Glomerular Filt Rate 54; Glucose Random 96 mg/dL (60-115); Magnesium 1.6 mg/dL (1.6-2.6); Potassium 3.8 mmol/L (3.3-5.1); Sodium 141 mmol/L (135-145); Total Protein 7.2 g/dL (6.5-8.0)
--- NOTE | 2024-03-24 13:01 | ECG_ITS ---
Test Reason : SVT Blood Pressure : / mmHG Vent. Rate : 093 BPM Atrial Rate : 093 BPM P-R Int : 192 ms QRS Dur : 092 ms QT Int : 352 ms P-R-T Axes : 002 -13 023 degrees QTc Int : 437 ms Sinus rhythm with Premature atrial complexes Otherwise normal ECG When compared with ECG of 24-MAR-2024 11:24, Premature atrial complexes are now Present Vent. rate has decreased BY [address] no longer depressed in Lateral leads Referred By: Roxanne Vivas Electronically Signed By:JESSA EID
[2024-03-24] MEDS: iohexoL 350 MG/ML 75 ML INFUS..BTL 65 ML IV (13:56)
--- NOTE | 2024-03-24 14:16 | PC.NURSE ---
Report given to Interventional Radiology department. Preparing for transfer to IR for Chest Tube Insertion.
--- NOTE | 2024-03-24 14:28 | PC.NURSE ---
transferred to IR for procedure.
--- NOTE | 2024-03-24 14:49 | PC.NURSE ---
Patient away at IR for chest tube insertion.
--- NOTE | 2024-03-24 14:52 | P.HPHOSP_ITS ---
History of Present Illness Date of Service: 03/24/24 Chief Complaint: sent from oncology for tachycardia The patient is a 58-year-old male with a history of atrial fibrillation (not on anticoagulation), stage 2 chronic kidney disease (CKD), obstructive sleep apnea (JAMIE), chronic obstructive pulmonary disease (COPD), and a urinary tract infection (UTI). He underwent right upper lobectomy and mediastinal lymphadenectomy in May 2021 for lung cancer, with a history of chemotherapy and radiation. 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 He has recurrent lung cancer with a malignant pleural effusion and a history of prior chest tube placement. The patient was seen in the oncology clinic for chemotherapy and noted to have tachycardia and supraventricular tachycardia (SVT) but was asymptomatic. He was brought to the ED and treated with adenosine. A chest X-ray performed yesterday showed a moderate-sized pleural effusion. Review of Systems 2 Review of Systems: Gen: no fever Resp: no sob, no cough CV: no chest, no HERNANDEZ, no leg edema GI: No n/v, no abd pain Neuro: No confusion Yes all other systems are reviewed and are negative [facility] Medical History Opacity of lung on imaging study Anemia Afib Abnormal PET scan of lung Non-small cell lung cancer (~2020) Diverticula of intestine COPD (chronic obstructive pulmonary disease) Nicotine dependence, cigarettes, uncomplicated Obstructive sleep apnea Obesity (BMI 35.0-39.9 without comorbidity) Gilbert's syndrome Constipation Colitis Depression Hypertension Family History Father Colon cancer Mother Diabetes Surgical History History of bronchoscopy History of ileostomy (~2021) History of lobectomy of lung (~2020) History of colonoscopy Social History Household Members: Spouse Housing: Condominium Housing Other:: pt states moving into [facility] this week Are you a primary doggy daycare activities director to a significant other at home: No Do you presently have visiting nurse or other home services: No Alcohol intake: never Patient Tobacco Use Status: Never used Tobacco Tobacco use type: Cigarette Cigarettes Per Day: 2 Years Smoked: 30 Smoked in Last 30 Days: No e-Cigarette/Vaping Use: Currently Using Second Hand Smoke Exposure: No Use of substances other than those prescribed or required for medical reasons: Yes Substance Use Type: Marijuana Substance Use Type Other:: edibles Substance Use Frequency: Daily Currently Displaying Signs/Symptoms of Drug Intoxication Withdrawal: No Any prior treatment program specific to substance use: No Have you been hit, kicked, punched, or otherwise hurt by someone within the past year? If so, by whom?: No Do you feel safe in your current relationship?: Yes Is there a partner from a previous relationship who is making you feel unsafe now?: No Are you made to feel afraid or neglected: No Confucianism Healthcare Practices: Mormonism Advance Directives: Yes Advance Directives on File: Yes Advance Directives Date on File: 11/18/21 Do you have a plan to hurt others: No Plan Recently lost weight without trying: Yes How much weight loss: 34pounds or more Eating poorly because of decreased appetite: No Nutrition screen score: 6 Nutrition Risks: Dental problems Poor oral hygiene: No service: No Current occupational status: employed 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 [employer] Meds Allergies Allergy/AdvReac Type Severity Reaction Status Date / Time No Known Allergies Allergy Unknown UN Verified 03/24/24 11:27 Home Medications ?Medication ?Instructions ?Recorded ?Confirmed ?Last Taken ?Type bupropion HCl 150 mg tablet,12 hr 1 tab PO BID 01/17/21 03/24/24 12/22/21 History sustained-release (Wellbutrin SR) aspirin 81 mg tablet,delayed 1 tab PO DAILY 12/23/21 03/24/24 12/22/21 History release trazodone 100 mg tablet 1 tab PO BEDTIME 03/12/22 03/24/24 Unknown History acetaminophen 500 mg tablet 500 mg PO Q6H PRN Pain 03/24/24 03/24/24 Unknown History folic acid 1 mg tablet 1 mg PO DAILY 03/24/24 03/24/24 Unknown History Physical Exam 2 Vital Signs and Narrative: Vital Signs: Last Vital Signs Temp 98.4 F 03/24/24 14:26 Pulse 69 03/24/24 14:26 Resp 16 03/24/24 14:26 BP 125/89 03/24/24 14:26 Pulse Ox 100 03/24/24 14:26 O2 Del Method Nasal Cannula 03/24/24 14:26 O2 Flow Rate 2 03/24/24 14:26 Oxygen Flow Rate 2 03/24/24 11:26 BMI result Body Mass Index 31.5 Const: Other: Constitutional: Alert, in no distress, overweight. Mental Status: Oriented to person, place and time. Eyes: Pupils are equal, round and reactive to light. Ear, Nose and Throat: Oropharynx clear, mucous membranes moist. Ears and nose without eformities. Trachea midline. Respiratory: Clear to auscultation. No wheezing, rales or rhonchi. Cardiovascular: S1 S2 regular. No murmurs, rubs or gallops. Gastrointestinal: Abdomen soft, non-tender, non-distended. Normal bowel sounds.? Neurologic: Cranial nerves II-XII grossly intact. No focal neurological deficits. Moves all extremities spontaneously.? Skin: No rashes or lesions.? Musculoskeletal: No cyanosis or clubbing. Psychiatric: Normal mood and affect? Results Labs 03/24/24 11:29 03/24/24 16:59 Labs: Laboratory Results - last 24 hr 03/24/24 03/24/24 11:29 12:06 MCV 82.5 MCH 25.4 L MCHC 30.8 L RDW 16.2 H Plt Count 221 MPV 8.9 L Immature Gran % (Auto) 0.5 H Neut % (Auto) 72.0 Lymph % (Auto) 12.3 L Morrill % (Auto) 13.5 H Eos % (Auto) 1.0 Baso % (Auto) 0.7 Lymph # (Auto) 0.9 L [place] # (Auto) 1.0 Eos # (Auto) 0.1 Baso # (Auto) 0.1 Abs Immat Gran (auto) 0.04 H Absolute Neuts (auto) 5.3 Absolute Nucleated RBC 0.000 Nucleated RBC % (auto) 0.0 PT 12.1 INR 1.0 Anion Gap 12 Estim Creat Clear Calc 68.2 Estimated GFR 54 Random Glucose 96 Calcium 9.6 Magnesium 1.6 Total Bilirubin 0.4 AST 13 ALT 16 Alkaline Phosphatase 80 Troponin I High Sens 10.4 Total Protein 7.2 Albumin 3.4 L Imaging Radiologist's Impressions: Impressions Chest X-Ray 03/24/24 11:35 IMPRESSION: Moderate-sized right pleural effusion. Right upper lobe airspace disease. Electronically signed by: Antonio Spencer DO 03/24/2024 02:33 PM EDT RP Assessment and Plan (1) Pleural effusion: Status: Acute Plan 58 yo male with hx of A.fib not on anticoagulation, CKD 2, JAMIE, COPD, UTI, s/p RUL lobectomy and mediastinal lymphadenactomy 05/2021 for lung cancer s/p chemo and xrt, has recurrent lung cancer with malignant pleural effusion and was seen in oncologist clinic for chemo and noted to be in SVT and bropught to the ED and received adonosine and broke. He has a large right sided pleural effusion and has had pig tail catheter inserted by IR Malignant R pleural effusion s/p chest tube -thoracic surgery consult -will have pleurodesis on wednesday [id number] SVT--likely related to P. efffusion resolved with adenosiv -add low dose beta gala HTN--not on meds, BP normal PAF--not anticoagulated Recurrent lung cancer -outpatient treatment Quality Stroke Does the patient have a stroke diagnosis?: No VTE Prior VTE?: No VTE Risk Level:: Medical - moderate - high VTE Device Contraindication: Treatment Not Indicated VTE Drug Contraindication: N/A - Med Ordered
--- NOTE | 2024-03-24 15:06 | PM.PROC ---
Brief Operative Note Date of procedure: 03/24/24 Pre-op diagnosis: Metastatic lung cancer, loculated right pleural effusion Post-op diagnosis: same Procedure: CT right chest tube 12 fr drain placed into large encapsulated pleural effusion. Susana fluid aspirated and sent for analysis. Due to thick rind around this effusion, this drain is unlikely to resolve this effusion. Recommend Thoracic surgery consultation. No immediate complications. Anesthesia: local and other (fentanyl 100 mcg)
--- NOTE | 2024-03-24 15:07 | PHA.MEDREC ---
Addendum entered by Paul Zavala [facility] 03/24/24 15:13: Med rec reviewed Original Note: Pharmacy Consult ? Medication Reconciliation Pharmacy has completed the medication reconciliation. Spoke to patients at bedside. was able to confirm all patients medication. states patient hasn't started Lidocaine LMX and Ondansertron 8 mg , however will be starting when he starts chemo. wasn't sure when the last time patient took his medication. I wasn't able to speak to patient due to him getting a procedure done
[2024-03-24 17:17] LABS: Glucose Random 91 mg/dL (60-115); Lactate Dehydrogenase 158 U/L (118-273); Total Protein 7.2 g/dL (6.5-8.0)
[2024-03-24] MEDS: oxyCODONE HCl Immed Release 5 MG TABLET PO (21:07)
[2024-03-24] MEDS: Acetaminophen 325 MG TABLET 650 MG PO (21:07)
[2024-03-24] MEDS: cefTRIAXone sodium 1 GM in 0.9 % Sodium Chloride 50 ML IV (21:08)
[2024-03-24] MEDS: 0.9 % Sodium Chloride Flush 3 ML SYRINGE IVFLUSH (21:08)
[2024-03-25] VITALS (9 sets, daily range): BP systolic 113–144; BP diastolic 68–81; PULSE 68–80; RESP 18–20; TEMP 36.2–37.3; O2SAT 95–100; BMI 31.5
[2024-03-25] MEDS: traZODone HCL 100 MG TABLET PO ×2 (00:42→23:19)
[2024-03-25] MEDS: 0.9 % Sodium Chloride Flush 3 ML SYRINGE IVFLUSH ×4 (00:48→20:52)
[2024-03-25] MEDS: Morphine Sulfate 4 MG/ML CARTRIDGE IVPUSH (01:08)
[2024-03-25] MEDS: Acetaminophen 325 MG TABLET 650 MG PO (08:32)
[2024-03-25] MEDS: Aspirin Enteric Coated 81 MG TABLET.DR PO (08:32)
[2024-03-25] MEDS: Cyanocobalamin (Vitamin B-12) 1,000 MCG TABLET 1000 MCG PO (08:32)
[2024-03-25] MEDS: Ferrous Sulfate 324 MG TABLET.DR PO (08:32)
[2024-03-25] MEDS: Metoprolol Tartrate 12.5 MG HALFTAB PO ×2 (08:33→20:51)
[2024-03-25] MEDS: Enoxaparin Sodium 40 MG/0.4 ML SYRINGE SUBCUT (08:33)
[2024-03-25] MEDS: Folic Acid 1 MG TABLET PO (08:33)
--- NOTE | 2024-03-25 08:52 | P.PNIM_ITS ---
Subjective Subjective Date of Service: 03/25/24 Interval History: f/u malignant P. effusion needing chest tube doing well, no sob Review of Systems Gen: no fever Resp: no sob, no cough CV: no chest, no HERNANDEZ, no leg edema GI: No n/v, no abd pain Neuro: No confusion Physical Exam 2 Vital Signs: Vital Signs: Last Vital Signs Temp 99.2 F 03/25/24 07:38 Pulse 80 03/25/24 07:38 Resp 20 03/25/24 07:38 BP 144/78 H 03/25/24 07:38 Pulse Ox 98 03/25/24 07:38 O2 Del Method Nasal Cannula 03/25/24 07:38 O2 Flow Rate 2 03/25/24 07:38 Oxygen Flow Rate 2 03/24/24 11:26 BMI result Body Mass Index 31.5 Const: Other: Constitutional: Alert, in no distress, overweight. Mental Status: Oriented to person, place and time. Respiratory: Clear to auscultation. No wheezing, rales or rhonchi. right chest tube in place Cardiovascular: S1 S2 regular. No murmurs, rubs or gallops. Gastrointestinal: Abdomen soft, non-tender, non-distended. Normal bowel sounds.? Neurologic: Cranial nerves II-XII grossly intact. No focal neurological deficits. Moves all extremities spontaneously.? Skin: No rashes or lesions.? Psychiatric: Normal mood and affect? Objective Data Active Medications Acetaminophen (Acetaminophen 325 Mg Tablet) 650 mg PO Q6H PRN PRN Reason: Pain, Mild (Pain Scale 1-3), fever or headache Last Admin: 03/25/24 08:32 Dose: 650 mg Documented By: EDWIGE Albuterol Sulfate (Albuterol Sulfate 90 Mcg 8 Gm Inhaler) 2 puff INHALE Q4H PRN PRN Reason: for wheezing Aspirin (Aspirin Enteric Coated 81 Mg Tablet.) 81 mg PO DAILY [facility] Last Admin: 03/25/24 08:32 Dose: 81 mg Documented By: EDWIGE Bupropion HCl (Bupropion Hcl Xl 300 Mg Tab.Er.24h) 300 mg PO BEDTIME TORREY Calcium Carbonate (Calcium Carbonate 750 Mg Tab.Chew) 750 mg PO Q4H PRN PRN Reason: Heartburn Cyanocobalamin (Cyanocobalamin (Vitamin B-12) 1,000 Mcg Tablet) 1,000 mcg PO DAILY [facility] [place] Last Admin: 03/25/24 08:32 Dose: 1,000 mcg Documented By: EDWIGE Enoxaparin Sodium (Enoxaparin Sodium 40 Mg/0.4 Ml Syringe) 40 mg SUBCUT DAILY [facility] [place] Last Admin: 03/25/24 08:33 Dose: 40 mg Documented By: EDWIGE Ferrous Sulfate (Ferrous Sulfate 324 Mg Tablet.Dr) 324 mg PO DAILY [facility] [place] Last Admin: 03/25/24 08:32 Dose: 324 mg Documented By: EDWIGE Fluticasone/Vilanterol (Fluticasone/Vilanterol 200/25 Blst.W.Dev) 1 puff INHALE RDAILY [facility] [place] Folic Acid (Folic Acid 1 Mg Tablet) 1 mg PO DAILY [facility] [place] Last Admin: 03/25/24 08:33 Dose: 1 mg Documented By: EDWIGE Ceftriaxone Sodium 1 gm/ (Sodium Chloride) 50 mls @ 100 mls/hr IV Q24H [facility] [place] Last Infusion: 03/25/24 06:45 Dose: Infused Documented By: EDWIGE Lidocaine HCl (Lidocaine 4 % Cream Kit) 1 appl TOPICAL BID PRN PRN Reason: PORT A CATH Magnesium Hydroxide (Milk Of Magnesia 30 Ml Oral.Susp) 30 ml PO DAILY PRN PRN Reason: Constipation Melatonin (Melatonin 3 Mg Tablet) 6 mg PO BEDTIME PRN PRN Reason: Insomnia Metoprolol Tartrate (Metoprolol Tartrate 12.5 Mg Halftab) 12.5 mg PO BID [facility] [place]; Protocol Last Admin: 03/25/24 08:33 Dose: 12.5 mg Documented By: EDWIGE Ondansetron HCl (Ondansetron Hcl 4 Mg/2 Ml Vial) 4 mg IVPUSH Q8H PRN PRN Reason: Nausea and Vomiting Oxycodone HCl (Oxycodone Hcl Immed Release 5 Mg Tablet) 5 mg PO Q8H PRN PRN Reason: Breakthrough Pain, Moderate Last Admin: 03/24/24 21:07 Dose: 5 mg Documented By: ANGEL Polyethylene Glycol (Polyethylene Glycol 3350 17 Gm Powd.Pack) 17 gm PO DAILY PRN PRN Reason: Constipation Sodium Chloride (0.9 % Sodium Chloride Flush 3 Ml Syringe) 3 ml IVFLUSH QSHIFT [facility] [place] Last Admin: 03/25/24 08:33 Dose: 3 ml Documented By: EDWIGE Trazodone HCl (Trazodone Hcl 100 Mg Tablet) 100 mg PO BEDTIME TORREY Last Admin: 03/25/24 00:42 Dose: 100 mg Documented By: CHERYL Labs 03/24/24 11:29 03/24/24 16:59 Labs: Laboratory Results - last 24 hr 03/24/24 03/24/24 03/24/24 11:29 12:06 16:59 MCV 82.5 MCH 25.4 L MCHC 30.8 L RDW 16.2 H Plt Count 221 MPV 8.9 L Immature Gran % (Auto) 0.5 H Neut % (Auto) 72.0 Lymph % (Auto) 12.3 L [place] % (Auto) 13.5 H Eos % (Auto) 1.0 Baso % (Auto) 0.7 Lymph # (Auto) 0.9 L [place] # (Auto) 1.0 Eos # (Auto) 0.1 Baso # (Auto) 0.1 Abs Immat Gran (auto) 0.04 H Absolute Neuts (auto) 5.3 Absolute Nucleated RBC 0.000 Nucleated RBC % (auto) 0.0 PT 12.1 INR 1.0 Anion Gap 12 Estim Creat Clear Calc 68.2 Estimated GFR 54 Random Glucose 96 91 Calcium 9.6 Magnesium 1.6 Total Bilirubin 0.4 AST 13 ALT 16 Alkaline Phosphatase 80 Lactate Dehydrogenase 158 Troponin I High Sens 10.4 Total Protein 7.2 7.2 Albumin 3.4 L Assessment and Plan (1) Pleural effusion: Status: Acute Plan 58 yo male with hx of A.fib not on anticoagulation, CKD 2, JAMIE, COPD, UTI, s/p RUL lobectomy and mediastinal lymphadenactomy 05/2021 for lung cancer s/p chemo and xrt, has recurrent lung cancer with malignant pleural effusion and was seen in oncologist clinic for chemo and noted to be in SVT and bropught to the ED and received adonosine and broke. He has a large right sided pleural effusion and has had pig tail catheter inserted by IR Malignant R pleural effusion s/p chest tube -thoracic surgery consult -will have pleurodesis on wednesday Airspace disease/PNA -continue Ceftriaxone [id number]--[id number] SVT--likely related to P. efffusion resolved with adenosine,no further episode -stated he's allergic to metoprolol, cardiology consult if happens again HTN--not on meds, BP normal PAF--not anticoagulated Recurrent lung cancer -outpatient treatment dvt prophylaxis--lovenox full need for inpatient; chest tube management for pleural effusion Quality Stroke Does the patient have a stroke diagnosis?: No VTE Prior VTE?: No VTE Risk Level:: Medical - moderate - high VTE Device Contraindication: N/A - Device Ordered VTE Drug Contraindication: N/A - Med Ordered
[2024-03-25] MEDS: oxyCODONE HCl Immed Release 5 MG TABLET PO ×2 (12:19→20:57)
[2024-03-25] MEDS: cefTRIAXone sodium 1 GM in 0.9 % Sodium Chloride 50 ML IV (20:51)
--- NOTE | 2024-03-25 21:05 | PC.NURSE ---
Patient offered scheduled 21:00 wellbutrin and trazodone with other scheduled evening meds. Pt states he takes these later in the night at home, and requested these to be given later. Pt states he will call curriculum writer when he is ready for those two meds. Call taylor within reach. Pt rings appropriately to make needs known. Chair alarm and safety measures in place.
[2024-03-25] MEDS: buPROPion HCl XL 300 MG TAB.ER.24H PO (23:19)
[2024-03-26 04:00] VITALS: BP 140/90; PULSE 80; RESP 20; TEMP 36.4; O2SAT 98
[2024-03-26 07:46] VITALS: BP 122/68; PULSE 99; RESP 19; TEMP 36.4; O2SAT 98
[2024-03-26] MEDS: Folic Acid 1 MG TABLET PO (08:17)
[2024-03-26] MEDS: Ferrous Sulfate 324 MG TABLET.DR PO (08:17)
[2024-03-26] MEDS: Metoprolol Tartrate 12.5 MG HALFTAB PO ×2 (08:17→20:00)
[2024-03-26] MEDS: Aspirin Enteric Coated 81 MG TABLET.DR PO (08:17)
[2024-03-26] MEDS: Enoxaparin Sodium 40 MG/0.4 ML SYRINGE SUBCUT (08:17)
[2024-03-26] MEDS: Cyanocobalamin (Vitamin B-12) 1,000 MCG TABLET 1000 MCG PO (08:17)
[2024-03-26] MEDS: 0.9 % Sodium Chloride Flush 3 ML SYRINGE IVFLUSH ×3 (08:18→19:52)
--- NOTE | 2024-03-26 10:15 | HO.PM.IMPN ---
Subjective Subjective Date of Service: 03/26/24 Interval History: f/u malignant P. effusion needing chest tube doing well, no sob. No new issues Physical Exam Vital Signs: Vital Signs: Last Vital Signs Temp 97.6 F 03/26/24 07:46 Pulse 99 03/26/24 07:46 Resp 19 03/26/24 07:46 BP 122/68 03/26/24 07:46 Pulse Ox 98 03/26/24 07:46 O2 Del Method Nasal Cannula 03/26/24 07:46 O2 Flow Rate 2 03/26/24 07:46 Oxygen Flow Rate 2 03/24/24 11:26 BMI result Body Mass Index 31.5 Const: Other: Constitutional: Alert, in no distress, overweight. Mental Status: Oriented to person, place and time. Respiratory: Clear to auscultation. No wheezing, rales or rhonchi. right chest tube in place Cardiovascular: S1 S2 regular. No murmurs, rubs or gallops. Gastrointestinal: Abdomen soft, non-tender, non-distended. Normal bowel sounds.? Neurologic: Cranial nerves II-XII grossly intact. No focal neurological deficits. Moves all extremities spontaneously.? Skin: No rashes or lesions.? Psychiatric: Normal mood and affect? Objective Data Active Medications Acetaminophen (Acetaminophen 325 Mg Tablet) 650 mg PO Q6H PRN PRN Reason: Pain, Mild (Pain Scale 1-3), fever or headache Last Admin: 03/25/24 08:32 Dose: 650 mg Documented By: EDWIGE Albuterol Sulfate (Albuterol Sulfate 90 Mcg 8 Gm Inhaler) 2 puff INHALE Q4H PRN PRN Reason: for wheezing Aspirin (Aspirin Enteric Coated 81 Mg Tablet.) 81 mg PO DAILY [facility] Last Admin: 03/26/24 08:17 Dose: 81 mg Documented By: BROLlay Bupropion HCl (Bupropion Hcl Xl 300 Mg Tab.Er.24h) 300 mg PO BEDTIME [facility] Last Admin: 03/25/24 23:19 Dose: 300 mg Documented By: CHERYL Calcium Carbonate (Calcium Carbonate 750 Mg Tab.Chew) 750 mg PO Q4H PRN PRN Reason: Heartburn Cyanocobalamin (Cyanocobalamin (Vitamin B-12) 1,000 Mcg Tablet) 1,000 mcg PO DAILY [facility] Last Admin: 03/26/24 08:17 Dose: 1,000 mcg Documented By: RENATA Enoxaparin Sodium (Enoxaparin Sodium 40 Mg/0.4 Ml Syringe) 40 mg SUBCUT DAILY [facility] Last Admin: 03/26/24 08:17 Dose: 40 mg Documented By: RENATA Ferrous Sulfate (Ferrous Sulfate 324 Mg Tablet.Dr) 324 mg PO DAILY [facility] Last Admin: 03/26/24 08:17 Dose: 324 mg Documented By: RENATA Fluticasone/Vilanterol (Fluticasone/Vilanterol 200/25 Blst.W.Dev) 1 puff INHALE RDAILY [facility] Last Admin: 03/25/24 10:51 Dose: Not Given Documented By: SHAWANDA Non-Admin Reason: Med Not Available Folic Acid (Folic Acid 1 Mg Tablet) 1 mg PO DAILY [facility] Last Admin: 03/26/24 08:17 Dose: 1 mg Documented By: RENATA Ceftriaxone Sodium 1 gm/ (Sodium Chloride) 50 mls @ 100 mls/hr IV Q24H [facility] Last Infusion: 03/25/24 21:21 Dose: Infused Documented By: CHERYL Lidocaine HCl (Lidocaine 4 % Cream Kit) 1 appl TOPICAL BID PRN PRN Reason: PORT A CATH Magnesium Hydroxide (Milk Of Magnesia 30 Ml Oral.Susp) 30 ml PO DAILY PRN PRN Reason: Constipation Melatonin (Melatonin 3 Mg Tablet) 6 mg PO BEDTIME PRN PRN Reason: Insomnia Metoprolol Tartrate (Metoprolol Tartrate 12.5 Mg Halftab) 12.5 mg PO BID [facility]; Protocol Last Admin: 03/26/24 08:17 Dose: 12.5 mg Documented By: RENATA Ondansetron HCl (Ondansetron Hcl 4 Mg/2 Ml Vial) 4 mg IVPUSH Q8H PRN PRN Reason: Nausea and Vomiting Oxycodone HCl (Oxycodone Hcl Immed Release 5 Mg Tablet) 5 mg PO Q8H PRN PRN Reason: Breakthrough Pain, Moderate Last Admin: 03/25/24 20:57 Dose: 5 mg Documented By: CHERYL Polyethylene Glycol (Polyethylene Glycol 3350 17 Gm Powd.Pack) 17 gm PO DAILY PRN PRN Reason: Constipation Sodium Chloride (0.9 % Sodium Chloride Flush 3 Ml Syringe) 3 ml IVFLUSH QSHIFT [facility] Last Admin: 03/26/24 08:18 Dose: 3 ml Documented By: DOBROB Trazodone HCl (Trazodone Hcl 100 Mg Tablet) 100 mg PO BEDTIME [facility] Last Admin: 03/25/24 23:19 Dose: 100 mg Documented By: ALMA DELIAAJIK Labs 03/24/24 11:29 03/24/24 16:59 Microbiology Microbiology Results: Microbiology 03/24/24 15:05 Gram Stain - Final Thoracentesis Fluid Routine Culture - Final No growth after 2 days Anaerobic Culture - Preliminary No growth to date. Assessment and Plan (1) Pleural effusion: Status: Acute Plan 58 yo male with hx of A.fib not on anticoagulation, CKD 2, JAMIE, COPD, UTI, s/p RUL lobectomy and mediastinal lymphadenactomy 05/2021 for lung cancer s/p chemo and xrt, has recurrent lung cancer with malignant pleural effusion and was seen in oncologist clinic for chemo and noted to be in SVT and bropught to the ED and received adonosine and broke. He has a large right sided pleural effusion and has had pig tail catheter inserted by IR Malignant R pleural effusion s/p chest tube -thoracic surgery consult -will have pleurodesis on wednesday Airspace disease/PNA, no fever, wbc normla -continue Ceftriaxone KRS8D--saivon SVT--likely related to P. efffusion resolved with adenosine,no further episode -stated he's allergic to metoprolol, cardiology consult if happens again HTN--not on meds, BP normal PAF--not anticoagulated Recurrent lung cancer -outpatient treatment dvt prophylaxis--lovenox full need for inpatient; chest tube management for pleural effusion Quality Stroke Does the patient have a stroke diagnosis?: No VTE Prior VTE?: No VTE Risk Level:: Medical - moderate - high VTE Device Contraindication: N/A - Device Ordered VTE Drug Contraindication: N/A - Med Ordered
--- NOTE | 2024-03-26 10:28 | MHC.CM.PN ---
PT REPORTS HE LIVES WITH HIS , HOWEVER HE HAS BEEN IN A A MEDICAL RESPITE HE SAYS HE WAS SUPPOSED TO DC FROM RESPITE THIS WEDNESDAY AT WHICH TIME HE AND HIS WERE SUPPOSED TO BE MOVING INTO THEIR [place]. HE SAYS THEY HAVE MOVERS HIRED TO ASSIST. HE USES HOME O2 AND A CPAP FROM [facility] ON FILE PCP: NAYE WHITLEY TBD: RETURN TO A MEDICAL RESPITE VS HOME TO [place] WITH , DEPENDING ON DATE OF DC. TRANSPORT TBD BY DISPO
[2024-03-26 11:04] LABS: Hematocrit 30.1 % (42.0-52.0); Hemoglobin 9.4 g/dl (14.0-18.0); Mean Corpuscular HGB Conc 31.2 g/dl (31.0-36.0); Mean Corpuscular Hemoglobin 25.6 pg (27.0-33.0); Mean Platelet Volume 8.4 fL (9.4-12.4); Platelet Count 247 X10*3/uL (160-400); Red Blood Count 3.67 X10*6/uL (4.60-5.80); Red Cell Distribution Width 16.3 % (11.0-16.0); White Blood Count 6.6 X10*3/uL (4.8-10.8)
[2024-03-26 11:16] LABS: Anion Gap 14 (12-20); Blood Urea Nitrogen 20 mg/dL (9-16); Calcium 9.7 mg/dL (8.4-10.2); Carbon Dioxide 29 mmol/L (22-29); Chloride 99 mmol/L (96-108); Creatinine Clr Calc Pharmacy 62.3; Estimated Glomerular Filt Rate 48; Glucose Random 101 mg/dL (60-115); Magnesium 1.6 mg/dL (1.6-2.6); Potassium 3.8 mmol/L (3.3-5.1); Sodium 138 mmol/L (135-145)
[2024-03-26 12:00] VITALS: BP 120/56; PULSE 67; RESP 16; TEMP 36.8; O2SAT 99
[2024-03-26 15:28] VITALS: BP 109/65; PULSE 76; RESP 16; TEMP 36.5; O2SAT 99
[2024-03-26] MEDS: Lactated Ringers 1,000 ML 80 ML IVCONT (15:43)
[2024-03-26 19:39] VITALS: BP 134/82; PULSE 78; RESP 18; TEMP 36.9; O2SAT 98
[2024-03-26] MEDS: oxyCODONE HCl Immed Release 5 MG TABLET PO (20:00)
[2024-03-26] MEDS: cefTRIAXone sodium 1 GM in 0.9 % Sodium Chloride 50 ML IV (20:01)
--- NOTE | 2024-03-26 20:41 | PC.NURSE ---
Patient requesting scheduled 21:00 trazodone and wellbutrin be given closer to 23:00 per home admin scheduled. Patient NPO at midnight as clarified with covering Dr. Guerin, per attending note stating plan for pleurodesis tomorrow/Wednesday. Plan of care discussed with patient who is accepting and verbalized plan with teach back. Right lateral chest tube remains intact and functioning to -20sx oer order. LR held during abx administration due to incompatibility/single IV. Plan of care continues.
[2024-03-26] MEDS: buPROPion HCl XL 300 MG TAB.ER.24H PO (23:05)
[2024-03-26] MEDS: traZODone HCL 100 MG TABLET PO (23:05)
[2024-03-26] MEDS: Acetaminophen 325 MG TABLET 650 MG PO (23:07)
[2024-03-26 23:45] VITALS: BP 140/86; PULSE 68; RESP 18; TEMP 37; O2SAT 99
[2024-03-27] VITALS (8 sets, daily range): BP systolic 113–133; BP diastolic 61–84; PULSE 64–104; RESP 16–20; TEMP 36.3–37.5; O2SAT 99–100
[2024-03-27] MEDS: Lactated Ringers 1,000 ML 80 ML IVCONT ×2 (02:55→15:48)
[2024-03-27 06:56] LABS: Anion Gap 10 (12-20); Blood Urea Nitrogen 22 mg/dL (9-16); Calcium 9.6 mg/dL (8.4-10.2); Carbon Dioxide 33 mmol/L (22-29); Chloride 99 mmol/L (96-108); Creatinine Clr Calc Pharmacy 62.7; Estimated Glomerular Filt Rate 49; Glucose Random 87 mg/dL (60-115); Potassium 3.2 mmol/L (3.3-5.1); Sodium 139 mmol/L (135-145)
[2024-03-27] MEDS: Ferrous Sulfate 324 MG TABLET.DR PO (09:11)
[2024-03-27] MEDS: Aspirin Enteric Coated 81 MG TABLET.DR PO (09:11)
[2024-03-27] MEDS: Acetaminophen 325 MG TABLET 650 MG PO (09:12)
[2024-03-27] MEDS: Enoxaparin Sodium 40 MG/0.4 ML SYRINGE SUBCUT (09:12)
[2024-03-27] MEDS: Folic Acid 1 MG TABLET PO (09:12)
[2024-03-27] MEDS: Cyanocobalamin (Vitamin B-12) 1,000 MCG TABLET 1000 MCG PO (09:12)
[2024-03-27] MEDS: Metoprolol Tartrate 12.5 MG HALFTAB PO ×2 (09:12→20:24)
[2024-03-27] MEDS: oxyCODONE HCl Immed Release 5 MG TABLET PO (09:17)
[2024-03-27] MEDS: Fluticasone/Vilanterol 200/25 BLST.W.DEV 1 PUFF INHALE (09:28)
--- NOTE | 2024-03-27 10:11 | HO.THORCONS ---
Documented by User: Vidya Connelly PA-C 03/27/24 14:24 History of Present Illness Consult details Consult date: 03/27/24 Reason for consult: other (pleural effusion) Narrative: Jose Webster is a 58-year-old male with a history of atrial fibrillation, stage 2 CKD, JAMIE, COPD. He has a history of right upper lobe wedge resection with completion right upper lobectomy and mediastinal lymphadenectomy in May 2021 for stage II lung cancer by Dr. Herrmann. His chemo/radiation was unfortunately delayed due to a significant episode of diverticulitis with fistula requiring ex lap, sigmoid resection, primary colorectal anastmosis with diverting loop ileostomy. He subsequently had a PET scan in 10/2021 which showed a right paratracheal lymph node that was PET avid and borderline enlarged. He ultimately had an EBUS and that lymph node was positive and was treated with chemo/radiation and was clinically doing well. He had his ileostomy reversed in 11/17 and unfortunately was lost to follow up after this until he was admitted to [facility] this past summer with right sided pleural effusion and found to have recurrent disease. He underwent right-sided thoracentesis without evacuation of significant amount of fluid, concerning for loculated pleural effusion. He was apparently scheduled to have surgical pleurodesis with Dr. Herrmann and he denies this happening. He was being seen at the oncology clinic for chemotherapy and found to be in supraventricular tachycardia and was brought to the ED and treated with adenosine. A chest X-ray performed yesterday showed a moderate-sized right pleural effusion. Chest tube was placed by IR with about 1L drained. His breathing feels improved. He is frustrated at his hospital stay and reports he is supposed to be moving apartments. Review of Systems Constitutional: Constitutional: Denies chills and Denies fever(s) ENT: Denies dizziness Cardiovascular: Cardiovascular: Denies chest pain Respiratory: Respiratory: Reports as per HPI Gastrointestinal: Gastrointestinal: Denies abdominal pain and Denies vomiting Integumentary/Breasts: Skin/Breast: Denies rash and Denies jaundice Neurologic: Denies dizziness PMFSH Past Medical History Medical History Opacity of lung on imaging study Anemia Afib Abnormal PET scan of lung Non-small cell lung cancer (~2020) Diverticula of intestine COPD (chronic obstructive pulmonary disease) Nicotine dependence, cigarettes, uncomplicated Obstructive sleep apnea Obesity (BMI 35.0-39.9 without comorbidity) Gilbert's syndrome Constipation Colitis Depression Hypertension Family History Family History Father Colon cancer Mother Diabetes Surgical History Surgical History History of bronchoscopy History of ileostomy (~2021) History of lobectomy of lung (~2020) History of colonoscopy Social History Social History Household Members: Spouse Housing: Condominium Housing Other:: pt states moving into [employer] this week Are you a primary resident care assistant to a significant other at home: No Do you presently have visiting nurse or other home services: No Alcohol intake: never Patient Tobacco Use Status: Never used Tobacco Tobacco use type: Cigarette Years Smoked: 30 Smoked in Last 30 Days: No e-Cigarette/Vaping Use: Currently Using Second Hand Smoke Exposure: No Use of substances other than those prescribed or required for medical reasons: Yes Substance Use Type: Marijuana Substance Use Type Other:: edibles Substance Use Frequency: Daily Currently Displaying Signs/Symptoms of Drug Intoxication Withdrawal: No Any prior treatment program specific to substance use: No Have you been hit, kicked, punched, or otherwise hurt by someone within the past year? If so, by whom?: No Do you feel safe in your current relationship?: Yes Is there a partner from a previous relationship who is making you feel unsafe now?: No Are you made to feel afraid or neglected: No L[employer] Day Healthcare Practices: Mormonism Advance Directives: Yes Advance Directives on File: Yes Advance Directives Date on File: 11/18/21 Do you have a plan to hurt others: No Plan Recently lost weight without trying: Yes How much weight loss: 34pounds or more Eating poorly because of decreased appetite: No Nutrition screen score: 6 Nutrition Risks: Dental problems Poor oral hygiene: No service: No Current occupational status: employed Current occupation: Works in [employer] department at [employer] Meds Allergies Allergy/AdvReac Type Severity Reaction Status Date / Time No Known Allergies Allergy Unknown UN Verified 03/24/24 11:27 Active Medications: Current Medications Acetaminophen (Acetaminophen 325 Mg Tablet) 650 mg PO Q6H PRN PRN Reason: Pain, Mild (Pain Scale 1-3), fever or headache Last Admin: 03/27/24 09:12 Dose: 650 mg Albuterol Sulfate (Albuterol Sulfate 90 Mcg 8 Gm Inhaler) 2 puff INHALE Q4H PRN PRN Reason: for wheezing Aspirin (Aspirin Enteric Coated 81 Mg Tablet.Dr) 81 mg PO DAILY [facility] Last Admin: 03/27/24 09:11 Dose: 81 mg Bupropion HCl (Bupropion Hcl Xl 300 Mg Tab.Er.24h) 300 mg PO BEDTIME [facility] Last Admin: 03/26/24 23:05 Dose: 300 mg Calcium Carbonate (Calcium Carbonate 750 Mg Tab.Chew) 750 mg PO Q4H PRN PRN Reason: Heartburn Cyanocobalamin (Cyanocobalamin (Vitamin B-12) 1,000 Mcg Tablet) 1,000 mcg PO DAILY [facility] Last Admin: 03/27/24 09:12 Dose: 1,000 mcg Enoxaparin Sodium (Enoxaparin Sodium 40 Mg/0.4 Ml Syringe) 40 mg SUBCUT DAILY [facility] Last Admin: 03/27/24 09:12 Dose: 40 mg Ferrous Sulfate (Ferrous Sulfate 324 Mg Tablet.Dr) 324 mg PO DAILY [facility] Last Admin: 03/27/24 09:11 Dose: 324 mg Fluticasone/Vilanterol (Fluticasone/Vilanterol 200/25 Blst.W.Dev) 1 puff INHALE RDAILY [facility] Last Admin: 03/27/24 09:28 Dose: 1 puff Folic Acid (Folic Acid 1 Mg Tablet) 1 mg PO DAILY [facility] Last Admin: 03/27/24 09:12 Dose: 1 mg Ceftriaxone Sodium 1 gm/ (Sodium Chloride) 50 mls @ 100 mls/hr IV Q24H [facility] Last Infusion: 03/26/24 20:31 Dose: Infused Lactated Ringer's (Lr) 1,000 mls @ 80 mls/hr IVCONT .[id number] [facility] Last Admin: 03/27/24 02:55 Dose: 80 mls/hr Lidocaine HCl (Lidocaine 4 % Cream Kit) 1 appl TOPICAL BID PRN PRN Reason: PORT A CATH Magnesium Hydroxide (Milk Of Magnesia 30 Ml Oral.Susp) 30 ml PO DAILY PRN PRN Reason: Constipation Melatonin (Melatonin 3 Mg Tablet) 6 mg PO BEDTIME PRN PRN Reason: Insomnia Metoprolol Tartrate (Metoprolol Tartrate 12.5 Mg Halftab) 12.5 mg PO BID [facility]; Protocol Last Admin: 03/27/24 09:12 Dose: 12.5 mg Ondansetron HCl (Ondansetron Hcl 4 Mg/2 Ml Vial) 4 mg IVPUSH Q8H PRN PRN Reason: Nausea and Vomiting Oxycodone HCl (Oxycodone Hcl Immed Release 5 Mg Tablet) 5 mg PO Q8H PRN PRN Reason: Breakthrough Pain, Moderate Last Admin: 03/27/24 09:17 Dose: 5 mg Polyethylene Glycol (Polyethylene Glycol 3350 17 Gm Powd.Pack) 17 gm PO DAILY PRN PRN Reason: Constipation Sodium Chloride (0.9 % Sodium Chloride Flush 3 Ml Syringe) 3 ml IVFLUSH QSHIFT [facility] Last Admin: 03/27/24 09:13 Dose: Not Given Trazodone HCl (Trazodone Hcl 100 Mg Tablet) 100 mg PO BEDTIME [facility] Last Admin: 03/26/24 23:05 Dose: 100 mg Home Medications ?Medication ?Instructions ?Recorded ?Confirmed ?Last Taken ?Type bupropion HCl 150 mg tablet,12 hr 1 tab PO BID 01/17/21 03/24/24 12/22/21 History sustained-release (Wellbutrin SR) aspirin 81 mg tablet,delayed 1 tab PO DAILY 12/23/21 03/24/24 12/22/21 History release trazodone 100 mg tablet 1 tab PO BEDTIME 03/12/22 03/24/24 Unknown History acetaminophen 500 mg tablet 500 mg PO Q6H PRN Pain 03/24/24 03/24/24 Unknown History folic acid 1 mg tablet 1 mg PO DAILY 03/24/24 03/24/24 Unknown History Physical Exam Vital Signs: Vital Signs: Last Vital Signs Temp 99.5 F 03/27/24 07:19 Pulse 82 03/27/24 09:33 Resp 16 03/27/24 09:33 BP 133/84 03/27/24 07:19 Pulse Ox 100 03/27/24 07:19 O2 Del Method Nasal Cannula 03/27/24 07:19 O2 Flow Rate 2 03/27/24 07:19 Oxygen Flow Rate 2 03/24/24 11:26 BMI result Body Mass Index 31.5 Const: General: comfortable, no acute distress and alert Orientation/consciousness: patient oriented x3 Chest: Other: right posterior chest tube in place serosanguineous drainage in pleurvac ~200cc since last night no air leak on exam Resp: Effort & Inspection: normal respiratory effort, no respiratory distress, not tachypneic and no use of accessory muscles Skin: General skin exam: no rashes or lesions noted Neuro: General: patient oriented x3 and moves all extremities Results Labs 03/26/24 10:52 03/27/24 05:37 Labs: Abnormal lab results 03/26/24 03/27/24 Range/Units 10:52 05:37 RBC 3.67 L (4.60-5.80) X10*6/uL Hgb 9.4 L (14.0-18.0) g/dl Hct 30.1 L (42.0-52.0) % MCH 25.6 L (27.0-33.0) pg RDW 16.3 H (11.0-16.0) % MPV 8.4 L (9.4-12.4) fL Potassium 3.2 L (3.3-5.1) mmol/L Carbon Dioxide 33 H (22-29) mmol/L Anion Gap 10 L (12-20) BUN 20 H 22 H (9-16) mg/dL Creatinine 1.50 H 1.49 H (0.5-1.4) mg/dL Short CBC 03/26/24 03/27/24 Range/Units 10:52 05:37 WBC 6.6 Cancelled (4.8-10.8) X10*3/uL Hgb 9.4 L Cancelled (14.0-18.0) g/dl Hct 30.1 L Cancelled (42.0-52.0) % Plt Count 247 Cancelled (160-400) X10*3/uL BMP 03/26/24 03/27/24 10:52 05:37 Sodium 138 139 Potassium 3.8 3.2 L Chloride 99 99 Carbon Dioxide 29 33 H BUN 20 H 22 H Creatinine 1.50 H 1.49 H Calcium 9.7 9.6 All other labs normal. Imaging CT scan - chest: report reviewed and image reviewed Assessment and Plan (1) Pleural effusion: Status: Acute (2) Non-small cell lung cancer: Status: Acute Plan 58-year-old male with multiple medical comorbidities with hx right upper lobe wedge resection with completion right upper lobectomy and mediastinal lymphadenectomy in 05/2021 for stage II lung cancer with unfortunately recurrence of disease and recurrent right pleural effusion. IR has placed a R chest tube. It has had almost 1L at this point with ~200cc since last night. Can continue chest tube at this time until output <100cc/day. Unfortunately, the effusion appears loculated with possible trapped lung on CXR and he would require decortication to attempt to resolve this, prevent recurrence. The other options would be periodic thoracentesis when he becomes symptomatic versus pleurx catheter. This will be discussed with the patient. This can be performed on an outpatient basis if he remains stable from respiratory standpoint. Once patient was stabilized, he can follow-up at [facility] with his thoracic surgeon there. Procedures Date of Service Date of Service: 03/27/24 Documented by User: Julián Faulkner MD 03/27/24 11:13 PMFSH Past Medical History Medical History Opacity of lung on imaging study Anemia Afib Abnormal PET scan of lung Non-small cell lung cancer (~2020) Diverticula of intestine COPD (chronic obstructive pulmonary disease) Nicotine dependence, cigarettes, uncomplicated Obstructive sleep apnea Obesity (BMI 35.0-39.9 without comorbidity) Gilbert's syndrome Constipation Colitis Depression Hypertension Family History Family History Father Colon cancer Mother Diabetes Surgical History Surgical History History of bronchoscopy History of ileostomy (~2021) History of lobectomy of lung (~2020) History of colonoscopy Social History Social History Household Members: Spouse Housing: Condominium Housing Other:: pt states moving into [facility] this week Are you a primary resident care assistant to a significant other at home: No Do you presently have visiting nurse or other home services: No Alcohol intake: never Patient Tobacco Use Status: Never used Tobacco Tobacco use type: Cigarette Years Smoked: 30 Smoked in Last 30 Days: No e-Cigarette/Vaping Use: Currently Using Second Hand Smoke Exposure: No Use of substances other than those prescribed or required for medical reasons: Yes Substance Use Type: Marijuana Substance Use Type Other:: edibles Substance Use Frequency: Daily Currently Displaying Signs/Symptoms of Drug Intoxication Withdrawal: No Any prior treatment program specific to substance use: No Have you been hit, kicked, punched, or otherwise hurt by someone within the past year? If so, by whom?: No Do you feel safe in your current relationship?: Yes Is there a partner from a previous relationship who is making you feel unsafe now?: No Are you made to feel afraid or neglected: No L[employer] Day Healthcare Practices: Mormonism Advance Directives: Yes Advance Directives on File: Yes Advance Directives Date on File: 11/18/21 Do you have a plan to hurt others: No Plan Recently lost weight without trying: Yes How much weight loss: 34pounds or more Eating poorly because of decreased appetite: No Nutrition screen score: 6 Nutrition Risks: Dental problems Poor oral hygiene: No service: No Current occupational status: employed Current occupation: Works in [employer] department at [employer] Meds Allergies Allergy/AdvReac Type Severity Reaction Status Date / Time No Known Allergies Allergy Unknown UN Verified 03/24/24 11:27 Home Medications ?Medication ?Instructions ?Recorded ?Confirmed ?Last Taken ?Type bupropion HCl 150 mg tablet,12 hr 1 tab PO BID 01/17/21 03/24/24 12/22/21 History sustained-release (Wellbutrin SR) aspirin 81 mg tablet,delayed 1 tab PO DAILY 12/23/21 03/24/24 12/22/21 History release trazodone 100 mg tablet 1 tab PO BEDTIME 03/12/22 03/24/24 Unknown History acetaminophen 500 mg tablet 500 mg PO Q6H PRN Pain 03/24/24 03/24/24 Unknown History folic acid 1 mg tablet 1 mg PO DAILY 03/24/24 03/24/24 Unknown History Results Labs 03/26/24 10:52 03/27/24 05:37 Assessment and Plan (1) Pleural effusion: Status: Acute (2) Non-small cell lung cancer: Status: Acute Plan 58-year-old male with multiple medical comorbidities with hx right upper lobe wedge resection with completion right upper lobectomy and mediastinal lymphadenectomy in 05/2021 for stage II lung cancer with unfortunately recurrence of disease and recurrent right pleural effusion. IR has placed a R chest tube. It has had almost 1L at this point with ~200cc since last night. Can continue chest tube at this time. Unfortunately, the effusion appears loculated with possible trapped lung on CXR and he would require decortication to attempt to resolve this, prevent recurrence. The other options would be periodic thoracentesis when he becomes symptomatic versus pleurx catheter. This will be discussed with the patient. Once patient was stabilized, he can follow-up at [facility] with his thoracic surgeon there. Procedures Date of Service Date of Service: 03/27/24
--- NOTE | 2024-03-27 10:33 | MHC.CM.PN ---
Per ROUNDS discussion, Patient is not yet medically cleared for dc (draining chest tube in place); home is the goal and CM will continue to follow.
--- NOTE | 2024-03-27 11:04 | P.PNIM_ITS ---
Subjective Subjective Date of Service: 03/27/24 Interval History: f/u malignant P. effusion needing chest tube doing well, no sob. No new issues. Chest tube still draining signficantly Physical Exam 2 Vital Signs: Vital Signs: Last Vital Signs Temp 99.5 F 03/27/24 07:19 Pulse 82 03/27/24 09:33 Resp 16 03/27/24 09:33 BP 133/84 03/27/24 07:19 Pulse Ox 100 03/27/24 07:19 O2 Del Method Nasal Cannula 03/27/24 07:19 O2 Flow Rate 2 03/27/24 07:19 Oxygen Flow Rate 2 03/24/24 11:26 BMI result Body Mass Index 31.5 Const: Other: Constitutional: Alert, in no distress, overweight. Mental Status: Oriented to person, place and time. Respiratory: Clear to auscultation. No wheezing, rales or rhonchi. right chest tube in place Cardiovascular: S1 S2 regular. No murmurs, rubs or gallops. Gastrointestinal: Abdomen soft, non-tender, non-distended. Normal bowel sounds.? Neurologic: Cranial nerves II-XII grossly intact. No focal neurological deficits. Moves all extremities spontaneously.? Skin: No rashes or lesions.? Psychiatric: Normal mood and affect? Objective Data Active Medications Acetaminophen (Acetaminophen 325 Mg Tablet) 650 mg PO Q6H PRN PRN Reason: Pain, Mild (Pain Scale 1-3), fever or headache Last Admin: 03/27/24 09:12 Dose: 650 mg Documented By: BOB Albuterol Sulfate (Albuterol Sulfate 90 Mcg 8 Gm Inhaler) 2 puff INHALE Q4H PRN PRN Reason: for wheezing Aspirin (Aspirin Enteric Coated 81 Mg Tablet.) 81 mg PO DAILY [facility] Last Admin: 03/27/24 09:11 Dose: 81 mg Documented By: BOB Bupropion HCl (Bupropion Hcl Xl 300 Mg Tab.Er.24h) 300 mg PO BEDTIME [facility] Last Admin: 03/26/24 23:05 Dose: 300 mg Documented By: CHERYL Calcium Carbonate (Calcium Carbonate 750 Mg Tab.Chew) 750 mg PO Q4H PRN PRN Reason: Heartburn Cyanocobalamin (Cyanocobalamin (Vitamin B-12) 1,000 Mcg Tablet) 1,000 mcg PO DAILY [facility] Last Admin: 03/27/24 09:12 Dose: 1,000 mcg Documented By: BOB Enoxaparin Sodium (Enoxaparin Sodium 40 Mg/0.4 Ml Syringe) 40 mg SUBCUT DAILY [facility] Last Admin: 03/27/24 09:12 Dose: 40 mg Documented By: BOB Ferrous Sulfate (Ferrous Sulfate 324 Mg Tablet.Dr) 324 mg PO DAILY [facility] Last Admin: 03/27/24 09:11 Dose: 324 mg Documented By: BOB Fluticasone/Vilanterol (Fluticasone/Vilanterol 200/25 Blst.W.Dev) 1 puff INHALE RDAILY [facility] Last Admin: 03/27/24 09:28 Dose: 1 puff Documented By: DEBBIE Folic Acid (Folic Acid 1 Mg Tablet) 1 mg PO DAILY [facility] Last Admin: 03/27/24 09:12 Dose: 1 mg Documented By: BOB Ceftriaxone Sodium 1 gm/ (Sodium Chloride) 50 mls @ 100 mls/hr IV Q24H [facility] Last Infusion: 03/26/24 20:31 Dose: Infused Documented By: CHERYL Lactated Ringer's (Lr) 1,000 mls @ 80 mls/hr IVCONT .[id number] [facility] Last Admin: 03/27/24 02:55 Dose: 80 mls/hr Documented By: CHERYL Lidocaine HCl (Lidocaine 4 % Cream Kit) 1 appl TOPICAL BID PRN PRN Reason: PORT A CATH Magnesium Hydroxide (Milk Of Magnesia 30 Ml Oral.Susp) 30 ml PO DAILY PRN PRN Reason: Constipation Melatonin (Melatonin 3 Mg Tablet) 6 mg PO BEDTIME PRN PRN Reason: Insomnia Metoprolol Tartrate (Metoprolol Tartrate 12.5 Mg Halftab) 12.5 mg PO BID [facility]; Protocol Last Admin: 03/27/24 09:12 Dose: 12.5 mg Documented By: BOB Ondansetron HCl (Ondansetron Hcl 4 Mg/2 Ml Vial) 4 mg IVPUSH Q8H PRN PRN Reason: Nausea and Vomiting Oxycodone HCl (Oxycodone Hcl Immed Release 5 Mg Tablet) 5 mg PO Q8H PRN PRN Reason: Breakthrough Pain, Moderate Last Admin: 03/27/24 09:17 Dose: 5 mg Documented By: BOB Polyethylene Glycol (Polyethylene Glycol 3350 17 Gm Powd.Pack) 17 gm PO DAILY PRN PRN Reason: Constipation Sodium Chloride (0.9 % Sodium Chloride Flush 3 Ml Syringe) 3 ml IVFLUSH QSHIFT [facility] Last Admin: 03/27/24 09:13 Dose: Not Given Documented By: BOB Non-Admin Reason: IV Running Trazodone HCl (Trazodone Hcl 100 Mg Tablet) 100 mg PO BEDTIME [facility] Last Admin: 03/26/24 23:05 Dose: 100 mg Documented By: JCARLOSK Labs 03/26/24 10:52 03/27/24 05:37 Labs: Laboratory Results - last 24 hr 03/26/24 03/27/24 10:52 05:37 MCV 82.0 Cancelled MCH 25.6 L Cancelled MCHC 31.2 Cancelled RDW 16.3 H Cancelled Plt Count 247 Cancelled MPV 8.4 L Cancelled Absolute Nucleated RBC 0.000 Cancelled Nucleated RBC % (auto) 0.0 Cancelled Anion Gap 14 10 L Estim Creat Clear Calc 62.3 62.7 Estimated GFR 48 49 Random Glucose 101 87 Calcium 9.7 9.6 Magnesium 1.6 Microbiology Microbiology Results: Microbiology 03/24/24 15:05 Gram Stain - Final Thoracentesis Fluid Routine Culture - Final No growth after 2 days Anaerobic Culture - Preliminary No growth to date. Assessment and Plan (1) Pleural effusion: Status: Acute Plan 58 yo male with hx of A.fib not on anticoagulation, CKD 2, JAMIE, COPD, UTI, s/p RUL lobectomy and mediastinal lymphadenactomy 05/2021 for lung cancer s/p chemo and xrt, has recurrent lung cancer with malignant pleural effusion and was seen in oncologist clinic for chemo and noted to be in SVT and bropught to the ED and received adonosine and broke. He has a large right sided pleural effusion and has had pig tail catheter inserted by IR Malignant R pleural effusion s/p chest tube -still draining significantly -thoracic surgery following and think efffusion is loculated and has trapped lung which won't be amenable to pleurodesis. He may need decordication vs peridic thoracentesis vs Pleurx cath placment. For now continue Chest tube. Airspace disease/PNA, no fever, wbc normla -continue Ceftriaxone AUX8H--jhsukj SVT on admission-likely related to P. efffusion resolved with adenosine,no further episode -stated he's allergic to metoprolol, cardiology consult if happens again HTN--not on meds, BP normal PAF--not anticoagulated Recurrent lung cancer -outpatient treatment dvt prophylaxis--lovenox full need for inpatient; chest tube management for pleural effusion Quality Stroke Does the patient have a stroke diagnosis?: No VTE Prior VTE?: No VTE Risk Level:: Medical - moderate - high VTE Device Contraindication: N/A - Device Ordered VTE Drug Contraindication: N/A - Med Ordered
[2024-03-27] MEDS: cefTRIAXone sodium 1 GM in 0.9 % Sodium Chloride 50 ML IV (20:23)
[2024-03-27] MEDS: buPROPion HCl XL 300 MG TAB.ER.24H PO (20:23)
[2024-03-27] MEDS: traZODone HCL 100 MG TABLET PO (20:24)
[2024-03-28] MEDS: Melatonin 3 MG TABLET 6 MG PO
[2024-03-28] MEDS: Acetaminophen 325 MG TABLET 650 MG PO (00:01)
[2024-03-28] MEDS: 0.9 % Sodium Chloride Flush 3 ML SYRINGE IVFLUSH ×4 (00:01→21:08)
[2024-03-28 03:11] VITALS: BP 114/68; PULSE 69; RESP 18; TEMP 36.7; O2SAT 99
[2024-03-28] MEDS: Lactated Ringers 1,000 ML 80 ML IVCONT (05:45)
[2024-03-28 07:04] VITALS: BP 107/65; PULSE 69; RESP 18; TEMP 36.2; O2SAT 100
--- NOTE | 2024-03-28 07:42 | P.PNTS_ITS ---
Subjective Subjective Date of Service: 03/28/24 Interval history: No new or acute respiratory issues. Pleur-evac with minimal output over the last 24 hours. Chest x-ray yesterday status quo. Physical Exam Vital Signs: Vital Signs: Last Vital Signs Temp 97.1 F 03/28/24 07:04 Pulse 69 03/28/24 07:04 Resp 18 03/28/24 07:04 BP 107/65 03/28/24 07:04 Pulse Ox 100 03/28/24 07:04 O2 Del Method Nasal Cannula 03/28/24 07:04 O2 Flow Rate 2 03/28/24 07:04 Oxygen Flow Rate 2 03/24/24 11:26 BMI result Body Mass Index 31.5 Chest: Other: Chest tube dressing clean dry and intact. Pleur-evac as noted above. No air leak demonstrated Procedures Date of Service Date of Service: 03/28/24 Progress Note: A&P Assessment and plan (1) Malignant pleural effusion: Status: Acute (2) Non-small cell lung cancer: Status: Acute (3) Abnormal CT scan, chest: Status: Acute Plan Current plan is to remove chest tube. I discussed with the patient and he should follow-up with his thoracic surgeon Dr. Chavez at [facility]. He understands and agrees. Because of his hydropneumothorax, patient was not a candidate for pleurodesis. May require operative intervention but will defer to his surgeon at [facility]. Time Spent With Patient Time: Total time managing care of this patient today ____ minutes. Quality Stroke Does the patient have a stroke diagnosis?: No VTE Prior VTE?: No VTE Risk Level:: Medical - moderate - high VTE Device Contraindication: N/A - Device Ordered VTE Drug Contraindication: N/A - Med Ordered
[2024-03-28 09:25] LABS: Anion Gap 13 (12-20); Blood Urea Nitrogen 24 mg/dL (9-16); Calcium 9.3 mg/dL (8.4-10.2); Carbon Dioxide 26 mmol/L (22-29); Chloride 103 mmol/L (96-108); Estimated Glomerular Filt Rate 58; Glucose Random 128 mg/dL (60-115); Potassium 3.3 mmol/L (3.3-5.1); Sodium 139 mmol/L (135-145)
[2024-03-28] MEDS: Fluticasone/Vilanterol 200/25 BLST.W.DEV 1 PUFF INHALE (09:34)
[2024-03-28 09:37] VITALS: PULSE 76; RESP 16; O2SAT 95
[2024-03-28 10:57] VITALS: BP 138/77; PULSE 75; RESP 18; TEMP 37.2; O2SAT 99
[2024-03-28] MEDS: Cyanocobalamin (Vitamin B-12) 1,000 MCG TABLET 1000 MCG PO (11:06)
[2024-03-28] MEDS: Metoprolol Tartrate 12.5 MG HALFTAB PO ×2 (11:06→21:07)
[2024-03-28] MEDS: Folic Acid 1 MG TABLET PO (11:06)
[2024-03-28] MEDS: Enoxaparin Sodium 40 MG/0.4 ML SYRINGE SUBCUT (11:07)
[2024-03-28] MEDS: Ferrous Sulfate 324 MG TABLET.DR PO (11:07)
[2024-03-28] MEDS: Aspirin Enteric Coated 81 MG TABLET.DR PO (11:08)
[2024-03-28] MEDS: oxyCODONE HCl Immed Release 5 MG TABLET PO ×3 (11:59→21:30)
--- NOTE | 2024-03-28 12:07 | PM.DS ---
DS: Providers Provider Date of Service: 03/28/24 Date of admission: 03/24/24 15:51 Primary care physician: Bogdan Ha MD Consults: 03/24/24 15:47 Consult to Thoracic Surgery Routine Consulting Provider: Julián Faulkner Reason for consultation: malignant pleural effusion Has provider been notified: No DS: Diagnosis Discharge Diagnosis (1) Malignant pleural effusion: Status: Acute (2) Non-small cell lung cancer: Status: Acute (3) Abnormal CT scan, chest: Status: Acute DS: Summary Hospital Course Hospital Course: Chief Complaint: sent from oncology for tachycardia The patient is a 58-year-old male with a history of atrial fibrillation (not on anticoagulation), stage 2 chronic kidney disease (CKD), obstructive sleep apnea (JAMIE), chronic obstructive pulmonary disease (COPD), and a urinary tract infection (UTI). He underwent right upper lobectomy and mediastinal lymphadenectomy in May 2021 for lung cancer, with a history of chemotherapy and radiation. 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 He has recurrent lung cancer with a malignant pleural effusion and a history of prior chest tube placement. The patient was seen in the oncology clinic for chemotherapy and noted to have tachycardia and supraventricular tachycardia (SVT) but was asymptomatic. He was brought to the ED and treated with adenosine. A chest X-ray performed yesterday showed a moderate-sized pleural effusion. Hospital course: 58 yo male with hx of A.fib not on anticoagulation, CKD 2, JMAIE, COPD, UTI, s/p RUL lobectomy and mediastinal lymphadenactomy 05/2021 for lung cancer s/p chemo and xrt, has recurrent lung cancer with malignant pleural effusion and was seen in oncologist clinic for chemo and noted to be in SVT and bropught to the ED and received adonosine and broke. He had a large right sided pleural effusion and has had pig tail catheter inserted by IR Malignant R pleural effusion s/p chest tube, tube was left in for drainage. He was followed by thoracic surgery and believe that he has a trapped lung and loculated effusion and therefore not a candidate for pleurodesis. The chest tube has been removed. He has been given antibiotics for possible underlying consolidiation. He was on Ceftriaxone and will dc with Oral Ceftin and some doxy. He is followed by [facility] Thoracic Surgery (Dr. Burgos) and Interventional [employer] Dr. Alford.. He was no show during last appointment at [facility] on Feb 10 and when seen on Feb 24 for thoracentesis, he declined the procedure. He had thoracic surgery appointment scheduled for Mar 30 but cancelled and rescheduled for May 04. He has an appointment with Dr. Alford intervential Aircraft Instrument [employer]airer on on March 31 at 10: 45 and I have reminded him of that. Airspace disease/PNA, no fever, wbc normla--antibiotics as above YCC1M--ekfy mild MOISES, creatine is back to within baseline SVT--likely related to P. efffusion resolved with adenosine,no further episode -stated he's allergic to metoprolol, cardiology consult if happens again HTN--not on meds, BP normal PAF--not anticoagulated Recurrent lung cancer -outpatient treatment To follow up with his oncologist on outpatient basis, To follow up with Dr. Herrmann thoracic surgeon Time Attestation Discharge Coordination Time (in mins): 45 Quality: Safe Use of Opioids Does Pt have an Active Cancer Diagnosis on the Problem List?: No Quality: Stroke Does the patient have a stroke diagnosis?: No Physical Exam Vital Signs: Vital Signs: Last Vital Signs Temp 99.0 F 03/28/24 10:57 Pulse 75 03/28/24 10:57 Resp 18 03/28/24 10:57 BP 138/77 03/28/24 10:57 Pulse Ox 99 03/28/24 10:57 O2 Del Method Nasal Cannula 03/28/24 10:57 O2 Flow Rate 2 03/28/24 10:57 Oxygen Flow Rate 2 03/24/24 11:26 BMI result Body Mass Index 31.5 DS: Data Data Completed and Pending Labs on day of discharge: Laboratory Results - last 24 hr 03/28/24 08:58 Sodium 139 Potassium 3.3 Chloride 103 Carbon Dioxide 26 Anion Gap 13 BUN 24 H Creatinine 1.28 Estim Creat Clear Calc 73.0 Estimated GFR 58 Random Glucose 128 H Calcium 9.3 Preliminary micro results at discharge 03/24/24 15:05 Anaerobic Culture - Preliminary Thoracentesis Fluid No growth to date. Discharge Plan Discharge Anticipated Discharge Date/Time: 03/29/24 14:05 Patient Disposition: Home, Self-Care Discharge Diagnosis: malignant pleural effusion Referrals: Stephanie [Outside] - 1 Week Bogdan Ha MD [Primary Care Provider] - 1 Week Discharge Medications: New cefuroxime axetil 500 mg tablet 500 mg PO BID 7 Days Qty: 14 0RF Continued budesonide-formoterol [Symbicort] 160-4.5 mcg/actuation HFA aerosol inhaler 2 puff inhalation BID 30 Days Qty: 10.2 6RF albuterol sulfate [Ventolin HFA] 90 mcg/actuation HFA aerosol inhaler 2 puff PO Q4-6H PRN (Reason: for wheezing) Qty: 18 6RF bupropion HCl [Wellbutrin SR] 150 mg tablet sustained-release 12 hr 1 tab PO BID cyanocobalamin (vitamin B-12) 1,000 mcg Lozenge 1,000 mcg SUBLINGUAL DAILY Qty: 30 6RF ferrous sulfate 325 mg (65 mg iron) Tablet 325 mg PO DAILY Qty: 30 5RF oxycodone 5 mg Tablet 5 mg PO Q8H PRN (Reason: Breakthrough Pain, Moderate) Qty: 60 0RF Rx Instructions: Partial Fill upon patient request. ondansetron 8 mg Tablet,Disintegrating 8 mg PO Q8H Qty: 60 3RF lidocaine [LMX 4] 4 % Cream 1 appl TOPICAL BID Qty: 35 2RF Rx Instructions: Apply to Port-A-Cath site 1 hour prior to use. Q.2 weeks aspirin 81 mg tablet,delayed release (DR/EC) 1 tab PO DAILY trazodone 100 mg tablet 1 tab PO BEDTIME acetaminophen 500 mg tablet 500 mg PO Q6H PRN (Reason: Pain) folic acid 1 mg tablet 1 mg PO DAILY Discharge Orders: Discharge Order (Routine); Ordered 03/29/24 Ordered By: Moose Somers Diet: Advance to usual diet Activity on Discharge: As tolerated Stand Alone Forms: Patient Portal Discharge page Print Language: Mongolian Care Plan Goals: recovery from pleural effusion Health Concerns: malignant pleural effusion with possible underlying pneumonia Plan of Treatment: take cefuroxime and doxycycline as recommended follow-up with your thoracic surgeon at [facility] follow-up with your primary care doctor and follow-up with the oncologist. You have an appointment Dr. Toni Alford MD--Pulmononary Doctor at [facility] on March 31 at 10:45 Assessment: see above
[2024-03-28 15:38] VITALS: BP 118/69; PULSE 69; RESP 19; TEMP 36.8; O2SAT 96
[2024-03-28 19:48] VITALS: BP 126/75; PULSE 76; RESP 20; TEMP 36.6; O2SAT 99
[2024-03-28] MEDS: cefTRIAXone sodium 1 GM in 0.9 % Sodium Chloride 50 ML IV (21:08)
[2024-03-28] MEDS: buPROPion HCl XL 300 MG TAB.ER.24H PO (21:08)
[2024-03-29] VITALS: BP 106/58; PULSE 70; RESP 20; TEMP 36.3; O2SAT 100
[2024-03-29] MEDS: traZODone HCL 100 MG TABLET PO (00:04)
[2024-03-29 03:17] VITALS: BP 117/68; PULSE 73; RESP 18; TEMP 36.9; O2SAT 99
[2024-03-29 07:32] VITALS: BP 117/59; PULSE 68; RESP 20; TEMP 36.8; O2SAT 99
[2024-03-29] MEDS: Fluticasone/Vilanterol 200/25 BLST.W.DEV 1 PUFF INHALE (07:58)
[2024-03-29 08:01] VITALS: PULSE 68; RESP 20; O2SAT 95
[2024-03-29] MEDS: Ferrous Sulfate 324 MG TABLET.DR PO (10:43)
[2024-03-29] MEDS: Metoprolol Tartrate 12.5 MG HALFTAB PO (10:43)
[2024-03-29] MEDS: Aspirin Enteric Coated 81 MG TABLET.DR PO (10:44)
[2024-03-29] MEDS: 0.9 % Sodium Chloride Flush 3 ML SYRINGE IVFLUSH (10:44)
[2024-03-29] MEDS: Folic Acid 1 MG TABLET PO (10:44)
[2024-03-29] MEDS: Cyanocobalamin (Vitamin B-12) 1,000 MCG TABLET 1000 MCG PO (10:44)
[2024-03-29] MEDS: Enoxaparin Sodium 40 MG/0.4 ML SYRINGE SUBCUT (10:44)
[2024-03-29 11:04] VITALS: BP 110/67; PULSE 77; RESP 20; TEMP 36.7; O2SAT 98
--- NOTE | 2024-03-29 13:45 | MHC.CM.PN ---
CM spoke with A Worker @ [phone], who indicated that Patient is active with [facility]; a return referral has been made. CM will follow.
--- NOTE | 2024-03-29 14:06 | MHC.CM.PN ---
Patient has been medically cleared for dc to home today. has notified Stephanie OTEROA of today's dc.
[2024-03-29] MEDS: oxyCODONE HCl Immed Release 5 MG TABLET PO (14:10)
[2024-03-29] MEDS: Acetaminophen 325 MG TABLET 650 MG PO (14:47)
== END 2024-03-29 15:22 | disposition home or self-care (01) | DRG 136 ==
LOC: HO.ED 15:54 → HO.EDOVER 16:15 → HO.IMC 22:22
PROVIDERS: Physician Assistant; Physician Assistant Surgical; Admitting Provider Internal Medicine; Emergency Provider Student in an Organized Health Care Education/Training Program; PCP Internal Medicine; Visit Provider Internal Medicine
PROC: (CPT 32551; principal; 2024-03-24 14:30)
DX: C34.91 Malignant neoplasm of unspecified part of right bronchus or lung (principal); I47.10 Supraventricular tachycardia, unspecified; J91.0 Malignant pleural effusion; J18.9 Pneumonia, unspecified organism; I12.9 Hypertensive chronic kidney disease with stage 1 through stage 4 chronic kidney disease, or unspecified chronic kidney disease; N18.32 Chronic kidney disease, stage 3b; G47.33 Obstructive sleep apnea (adult) (pediatric); J44.9 Chronic obstructive pulmonary disease, unspecified; I48.0 Paroxysmal atrial fibrillation; Z90.2 Acquired absence of lung [part of]; Z79.82 Long term (current) use of aspirin; Z79.899 Other long term (current) drug therapy
CPT/HCPCS: 32551; 36415; 71045; 71275; 80048; 80053; 82947; 83615; 83735; 84155; 84484; 85025; 85027; 85610; 87070; 87073; 87205; 93005; 94640; 99285; A7041; C1729; J0153; J0696; J1650; J2270; J7120; Q9967

== ENCOUNTER → 2024-03-24 11:37 | Outpatient (BNV) | payer MEDICAID, SELFPAY | PROVIDERS: Emergency Provider Student in an Organized Health Care Education/Training Program; Visit Provider Physician Assistant Surgical | DX: J90 Pleural effusion, not elsewhere classified (principal); C34.90 Malignant neoplasm of unspecified part of unspecified bronchus or lung | CPT/HCPCS: 32557 ==

== ENCOUNTER → 2024-03-24 15:51 | Outpatient (BNV) | payer MEDICAID, SELFPAY | PROVIDERS: Admitting Provider Internal Medicine; Emergency Provider Student in an Organized Health Care Education/Training Program; Visit Provider Physician Assistant Surgical | DX: C34.90 Malignant neoplasm of unspecified part of unspecified bronchus or lung (principal); J91.0 Malignant pleural effusion; R93.89 Abnormal findings on diagnostic imaging of other specified body structures | CPT/HCPCS: 99223; 99233 ==

== ENCOUNTER → 2024-03-24 15:51 | Outpatient (BNV) | payer MEDICAID, SELFPAY | PROVIDERS: Admitting Provider Internal Medicine; Emergency Provider Student in an Organized Health Care Education/Training Program; Visit Provider Internal Medicine | DX: C34.90 Malignant neoplasm of unspecified part of unspecified bronchus or lung (principal); J91.0 Malignant pleural effusion; R93.89 Abnormal findings on diagnostic imaging of other specified body structures | CPT/HCPCS: 99223; 99232; 99239 ==

== ENCOUNTER 2024-04-13 11:05 | Day surgery (SDC) | payer MEDICAID, SELFPAY ==
--- NOTE | ~2024-04-13 | IR_ITS ---
CLINICAL HISTORY: Metastatic lung cancer. The patient presents to interventional radiology for placement of a port for chemotherapy. PROCEDURES: 1. Real-time ultrasound-guided access into the right internal jugular vein after documentation of selected vessel patency, and permanent image storing in the patient records. 2. Placement of a 6.6 Marshallese single-lumen power port. CLINICIAN: Kyree Baer PA-C MEDICATIONS: - Versed 1.5 mg, Fentanyl 75 mcg, Lidocaine 1% 10 mL SQ -Antibiotics: Ancef 2g -For additional details, please see nursing flowsheet. Complications: None. Estimated blood loss: <5 ml Specimens: None. Contrast: None. Fluoroscopy time: 1.8 min MODERATE SEDATION TIME: 32 min PROCEDURE NOTE: The procedure, risks, benefits, and alternatives were carefully explained to the patient and written informed consent was obtained. The patient was placed supine on the fluoroscopy table. A timeout was performed. The right neck and chest was prepped and draped in usual sterile fashion. Maximum barrier technique was utilized. Local anesthesia was administered to the access site with 1% lidocaine. Under ultrasound guidance, the right internal jugular vein was accessed with a 5 fr micropuncture set. A 0.035 in wire was advanced into the IVC. A peel-away sheath was advanced over the wire and into the SVC, and the wire was removed. Next, subcutaneous lidocaine was administered to the chest. The port pocket was created after the skin incision, utilizing blunt dissection. Using blunt dissection, a subcutaneous tunnel was created that connects from the port pocket to the venotomy site. Through the peel-away sheath, the 6.6 Marshallese port catheter was placed. The catheter position was verified with fluoroscopy to be at the cavoatrial junction. The port was connected to the catheter and was placed in the pocket. The venotomy site was closed with a 3-0 Vicryl subcutaneous suture. The port incision site was closed with interrupted 3-0 Vicryl subcutaneous sutures and surgical glue. Prior to closing the skin, 1 g of Ancef solution was placed in the pocket. The port was tested, flushed, and packed with heparin per routine protocol. The patient tolerated the procedure well. The patient was stable after the procedure and was transferred to the PACU. The procedure was performed under moderate sedation and with a dedicated nurse with continuous monitoring of vital signs. A permanent image of the ultrasound the neck and fluoroscopic image of the chest was saved and sent to PACS. FINDINGS: 1. Patent right internal jugular vein 2. Placement of a 6.6 Marshallese single lumen power port. 3. Port flushes and aspirates very well with a 10 mL syringe. No pneumothorax. IR/IR cvc insert tunnel w prt/embroiderer IMPRESSION: Placement of a 6.6 Marshallese single-lumen power port. PLAN: - The patient will be discharged home when stable by sedation protocol. - Port may be used immediately. This procedure was performed by Kyree Baer PA-C, and directly supervised by Dr. Portillo Electronically signed by: David Meeks MD 04/24/2024 02:33 PM EDT
[2024-04-13 12:05] VITALS: BMI 29.3
[2024-04-13 12:27] VITALS: BP 137/85; PULSE 79; RESP 22; TEMP 36.4; O2SAT 100
--- NOTE | 2024-04-13 12:55 | MHC.SHP ---
Pre-Procedural Eval Section A - 24 Hr Update-Section A only Date of Service: 04/13/24 Section B - Complete if H&P > 30 days Chief Complaint: facilitate chemo-neoplasm unsp. lung or bronchus Details of Present Illness: 58 y/o man with metastatic lung cancer. Relevant Family History (Specify if Yes): No Relevant Social History: Tobacco Use Present Medications: see Short Stay Collaborative assessment Medical History: Significant History History of Previous Operations: Relevant previous surgery/procedure and date(s) Allergies: Allergies Allergy/AdvReac Type Severity Reaction Status Date / Time No Known Allergies Allergy Unknown UN Verified 03/24/24 11:27 Review of Systems Sugical H&P ROS: Negative: Cardiovascular and Integumentary and Yes, Specify: Constitution (fatigue) and Respiratory (dyspnea on exertion) Exam Surgical H&P Exam: Normal: Heart, Normal: Skin and Normal: Neurological and Significant Findings: Lungs (diminished on Right) Plan 58 y/o man with metastatic lung cancer in need of vascular access for immunotherapy -Port Time Spent With Patient Time: Total time managing care of this patient today ____ minutes.
[2024-04-13 14:10] VITALS: BP 127/90; PULSE 72; RESP 16; TEMP 36.4; O2SAT 100
[2024-04-13 14:24] VITALS: BP 137/80; PULSE 80; RESP 16; TEMP 36.4; O2SAT 100
== END 2024-04-13 14:43 | disposition home or self-care (01) ==
PROVIDERS: Physician Assistant Surgical; PCP Internal Medicine; Visit Provider Internal Medicine Medical Oncology
DX: Z45.2 Encounter for adjustment and management of vascular access device (principal); C34.90 Malignant neoplasm of unspecified part of unspecified bronchus or lung
CPT/HCPCS: 36561; 99152; 99153; C1769; C1788; J0131; J0690; J1642; J1644; J2003; J2250; J2310; J3010

== ENCOUNTER → 2024-04-13 12:04 | Outpatient (BNV) | payer MEDICAID, SELFPAY | PROVIDERS: PCP Internal Medicine; Visit Provider Physician Assistant Surgical | DX: C34.90 Malignant neoplasm of unspecified part of unspecified bronchus or lung (principal) | CPT/HCPCS: 36561; 76937; 77001 ==